=== PATIENT | female | born 1990 | race Caucasian/White ===

== ENCOUNTER 2023-05-14 10:12 | Outpatient (OUT) | payer BC, SELFPAY ==
[2023-05-14 10:40] LABS: Basophils Absolute Auto 0.1 10^3/uL (0.0-0.1); Basophils Percent Auto 0.6 % (0.2-2.0); Eosinophils Absolute Auto 0.4 10^3/uL (0.0-0.7); Eosinophils Percent Auto 4.3 % (0.9-7.0); Hematocrit 42.9 % (36.0-48.0); Hemoglobin 13.6 g/dL (12.0-16.0); Immature Granulocytes Abs Auto 0.02 10^3/uL (0.00-0.03); Immature Granulocytes Pct Auto 0.2 % (0.0-0.5); Lymphocytes Absolute Auto 3.9 10^3/uL (1.2-3.8); Lymphocytes Percent Auto 41.1 % (20.5-60.0); Mean Corpuscular HGB Conc 31.7 g/dL (29.9-35.2); Mean Corpuscular Hemoglobin 29.1 pg (26.7-34.0); Mean Corpuscular Volume 91.9 fL (81.0-99.0); Mean Platelet Volume 8.8 fL (9.5-13.5); Monocytes Absolute Auto 0.5 10^3/uL (0.3-0.8); Monocytes Percent Auto 4.8 % (1.7-12.0); Neutrophils Absolute Auto 4.6 10^3/uL (1.4-6.5); Platelet Count 237 10^3/uL (150-450); Red Blood Count 4.67 10^6/uL (4.20-5.40); White Blood Count 9.5 10^3/uL (4.0-11.0)
[2023-05-14 11:09] LABS: Estimated Average Glucose 88 mg/dL; Glycohemoglobin A1C 4.7 % (4.5-6.2)
[2023-05-14 11:10] LABS: Alanine Aminotransferase 34 U/L (14-59); Albumin Level 3.8 g/dL (3.4-5.0); Alkaline Phosphatase 40 U/L (46-116); Aspartate Amino Transferase 24 U/L (15-37); Bilirubin Total 0.5 mg/dL (0.2-1.0); Calcium 8.6 mg/dL (8.5-10.1); Carbon Dioxide 26.3 mmol/L (21.0-32.0); Chloride 104 mmol/L (98-107); Chol HDL Ratio 2.4; Cholesterol 213 mg/dL (<=200); Estimated GFR (African America >60 (>=60); Estimated GFR (Non-African Ame >60 (>=60); Globulin 3.8 g/dL; Glucose 86 mg/dL (74-106); HDL Cholesterol 87 mg/dL (40-60); Potassium 4.3 mmol/L (3.5-5.1); Sodium 139 mmol/L (136-145); TSH W/ REFLEX FT4 0.764 (0.358-3.740); Total Protein 7.6 g/dL (6.4-8.2); Triglycerides 142 mg/dL (<=150); VLDL CHOLESTEROL 28.4 mg/dL
[2023-05-15 06:08] LABS: HCV Ab Non Reactive (Non Reactive); HIV Ab/p24 Ag Screen Non Reactive (Non Reactive)
== END 2023-05-14 10:13 | disposition home or self-care (01) ==
LOC: LAB 10:18
PROVIDERS: PCP Nurse Practitioner Primary Care; Visit Provider Nurse Practitioner Primary Care
DX: Z00.00 Encounter for general adult medical examination without abnormal findings (principal); Z11.59 Encounter for screening for other viral diseases; Z11.4 Encounter for screening for human immunodeficiency virus [HIV]; Z13.6 Encounter for screening for cardiovascular disorders; Z13.29 Encounter for screening for other suspected endocrine disorder
CPT/HCPCS: 36415; 80053; 80061; 83036; 84443; 85025; 86803; 87389

== ENCOUNTER 2023-05-17 | Outpatient (REF) | payer BC, SELFPAY ==
--- OUTSIDE RECORDS SUMMARY | 2023-05-18 07:28 | XMS_ITS | CCD ---
Author Name Unknown Address [facility] [place] [address] Organization [facility] Care Team Providers Care [employer] Name Role Phone SWAPNIL CALIX Primary Care Unavailable DR LYNSEY DE LOS SANTOS Attending Unavailable FILIBERTO, DR MENON Consulting Unavailable DR LYNSEY DE LOS SANTOS Admitting Unavailable Problems Problem Classification Problem Date Documented Da te Episodic/Chronic Disorders of teeth and jaw (4 sources) Other specified disorders of teeth and supporting structures; Translations: [Periapical abscess without sinus] Onset: 09-28-2021 Episodic Other connective tissue disease (1 source) Other specified soft tissue disorders; Translations: [OTHER SPEC SOFT TISSUE DISORDERS] Onset: 09-29-2021 Episodic Substance-related disorders (1 source) Nicotine dependence, cigarettes, uncomplicated; Translations: [NICOTINE DEPEND CIGARETTES UNCOMP] Onset: 09-29-2021 Chronic Results Test Name Value Interpretation Reference Range Facil ity ED Note-Physicianon 11-18-19 ED Note-Physician Basic Information Time Seen: Evangelist Butcher PA-C 11/14/2019 18:21 Chief Complaint intermittent fevers since trip to [place] last 24 hours. denies nausea, vomiting, diarrhea History of Present Illness 29-year-old female presents to the emergency room for evaluation of the fever and cough. The patient states the fever started today and cough followed thereafter. She states that she is recently on vacation in [place]. She states she is on multiple people and now some of them are starting to get sick as well. She states that she has no shortness of breath but is a smoker. She states that she is concerned about the virus that is a current pandemic. Review of Systems All Organ systems are reviewed. Pertinent positive and negative findings as mentioned in the HPI Physical Exam Vitals & Measurements T: 37 ?C (Oral) HR: 82(Peripheral) RR: 16 BP: 129/84 SpO2: 99% Nurses note and vital signs reviewed and patient is not hypoxic. General: The patient appears well and in no apparent distress. Patient is resting comfortably on cart. Skin: Warm, dry, no pallor noted. There is no rash noted. Head: Normocephalic, atraumatic Eye: Normal conjunctiva Ears, Nose, Mouth, and Throat: oral mucosa is mildly dry. There is bilateral TM bulging without erythema. I notice clear fluid in both TMs. No perforation. Postnasal drip noted with mild pharyngeal erythema without exudate. Nasal congestion with purulent drainage. Handles secretions well. Uvula midline. Cardiovascular: Regular Rate and Rhythm Respiratory: Patient is in no distress, no accessory muscle use, lungs are clear to auscultation, no wheezing, rales or rhonchi Back: non-tender, no CVA tenderness bilaterally to percussion. GI: Normal bowel sounds, no tenderness to palpation, no masses appreciated. No rebound, guarding, or rigidity noted. Musculoskeletal: The patient has no evidence of calf tenderness, no pitting edema, symmetrical pulses noted bilaterally Neurological: A&O x4, normal speech Psychiatric: Cooperative Medical Decision Making The patient is tested and swabbed for COID-19 and the patient will be treated symptomatically and supportively. Tylenol for fever reducing and to increase fluids. Close follow-up with primary care advised. We will call her with results. Return regularly worsening symptoms including shortness of breath or fever that is not responding to Tylenol. She has no questions and is discharged home Assessment/Plan Fever (R50.9: Fever, unspecified) Viral URI (J06.9: Acute upper respiratory infection, unspecified) Orders: albuterol, 1 puff(s), Inhalation, q6hr for wheezing, 8.5 gram, Refill(s) 0, [facility], 160, cm, 01/02/19 21:22:00 EDT, Height/Length Measured, 95.3, kg, 01/02/19 21:22:00 EDT, Weight Measured brompheniramine/dextro methorphan/PSE, 5-10 mL, Oral, QID for cold symptoms, 180 mL, Refill(s) 0, [facility], 160, cm, 01/02/19 21:22:00 EDT, Height/Length Measured, 95.3, kg, 01/02/19 21:22:00 EDT, Weight Measured SARS-CoV-2, LENA Disposition Plan Patient Discharge Condition Stable Discharge Disposition Discharged home Discharge Prescription List Prescriptions Bromfed DM oral syrup, 5-10 mL, Oral, QID, PRN ProAir HFA 90 mcg/inh inhalation aerosol, 1 puff(s), Inhalation, q6hr, PRN Follow-up With When Contact Information Jerri Dumont In 3 days 11/17/[address] [place] [address]- Business (1) Additional Instructions: Patient Education Viral Infections Fever, Adult Attestation The patient's care was supervised by Dr. Luciano including history, physical, medical decision making, and disposition. Teaching-Supervisory Addendum-Brief I participated in the following activities of this patients care: the medical history. I personally performed: supervision of the patient's care, the medical history, the physical exam, the medical decision making. The case was discussed with: the physician educational program assistant, Evangelist Butcher PA-C. Procedures: I directly supervised the entire procedure. Evaluation and management service: I agree with the evaluation and management decisions made in this patient's care. Results interpretation: I agree with the study interpretation in this patient's care, I agree with the documentation of the study interpretation. Problem List/Past Medical History Ongoing Abdominal pain in [place]abies Smoker Historical none Procedure/Surgical History , none. 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 Activity level: Moderate physical work., 08/12/2013 Home/Environment Lives with Mother. Living situation: Home/Independent. Alcohol abuse in household: No. Substance abuse in household: No. Smoker in household: Yes. Injuries/Abuse/Neglect in household: No. Feels unsafe at home: No. Safe place to go: Yes. Agency(s)/Others notified: No. Family/Friends available for support: Yes. Concern for family members at home: No. Major illness in household: No. Financial concerns: No., 08/12/2013 Nutrition/Health Regular, 08/12/2013 Substance Abuse - Denies Substance Abuse, 08/12/2013 Current, 11/14/2019 IV drug use: No., 04/30/2018 Current, 04/06/2018 Tobacco - Denies Tobacco Use, 01/02/2019 4 or less cigarettes(less than 1/4 pack)/day in last 30 days Tobacco Use:. Cigarettes, 11/14/2019 10 or more cigarettes (1/2 pack or more)/day in last 30 days Tobacco Use:. Cigarettes, 04/30/2018 Cigarettes, 04/06/2018 Current Every Day Smoker, 08/12/2013 Current, Cigarettes, 20 per day. Ready to change: No. Household tobacco concerns: No., 09/30/2010 Family History COPD: Father. Eczema: Sister. Heart murmur: Sister. Lab Results No qualifying data available. Diagnostic Results No qualifying data available. Normal [facility] Comment on above: Result Comment: Elec tronically Signed By: Evangelist Butcher PA-C\.br\Date and Time Signed: 11/14/19 19:19 EDT\.br\Electronically Co-Signed By: Cb Luciano M.D.\.br\Date and Time Co-Signed: 11/18/19 09:27 EDT Coding Summary.on 11-16-2019 Coding Summary. CODING DATE: 11/16/2019 FINAL [facility] STATUS: Home (Routine DC) PAYOR: Hood ADMIT DX: REASON FOR VISIT DX: R50.9 Fever, unspecified R05 Cough FINAL DX: PRINCIPAL: J06.9 Acute upper respiratory infection, unspecified SECONDARY: B97.89 Other viral agents as the cause of diseases classified elsewhere Z20.828 Contact with and (suspected) exposure to other viral communicable diseases F17.210 Nicotine dependence, cigarettes, uncomplicated PYMT PROC APC STAT DESCRIPTION DOCTOR NAME DATE NOTE: The code number assigned matches the documented diagnosis and / or procedure in the patient's chart. However, the narrative phrase printed from the coding software may appear abbreviated, or result in slightly different terminology. Coded By: Arlene Sanchez Date Saved: 11/16/2019 08:31 am Normal [facility] Consent for Treatmenton 10-26 Consent for Treatment [id number] 0CD:127 Normal [facility] Discharge Instructionson Discharge Instructions [id number] 0CD:127 Normal [facility] ED Clinical Summaryon 2019 ED Clinical Summary [address] [address] ED Clinical Summary Person Information Name: MARTINA MELENDEZ [facility] Age: 29 Years : 1990 Sex: Female Language: Greek PCP: Tim HARMAN, Jerri Amaya Marital Status: Single Phone: [phone] Visit Id: Visit Reason: Cough; Fever; FEVER, JUST RETURNED FROM [place] Speciality: Acuity: 3 Enc Type: Emergency Med Service: Emergency Arrival: 11/14/2019 18:13:56 Discharge: 11/14/2019 19:34:45 LOS: 000 01:21 Checkin: 11/14/2019 18:13:56 Checkout: 11/14/2019 19:34:45 Dispo Type: Home (Routine DC) EVENTS: Event Name Event Status Request Date/Time Start Date/Time Complete Date/Time Arrive Complete 11/14/2019 18:13:56 11/14/2019 18:13:56 11/14/2019 18:13:56 Document Home Meds Request 11/14/2019 18:13:56 Triage Complete 11/14/2019 18:13:56 11/14/2019 18:29:14 11/14/2019 18:29:14 Dr Exam Complete 11/14/2019 18:21:41 11/14/2019 18:21:41 11/14/2019 18:21:41 Registration Complete 11/14/2019 18:21:41 11/14/2019 18:23:44 11/14/2019 18:27:36 Bed Assign Complete 11/14/2019 18:23:44 11/14/2019 18:23:44 11/14/2019 18:23:44 RN Exam Complete 11/14/2019 18:23:44 11/14/2019 18:33:06 11/14/2019 18:33:06 Reg Complete Request 11/14/2019 18:27:36 Reg Bed Request Complete 11/14/2019 18:27:37 11/14/2019 18:27:37 11/14/2019 18:27:37 Patient Care Request 11/14/2019 18:29:15 Patient Isolation Request 11/14/2019 18:29:15 Dr Exam Complete 11/14/2019 18:41:38 11/14/2019 18:41:38 11/14/2019 18:41:38 Registration Complete 11/14/2019 18:41:38 11/14/2019 18:46:09 11/14/2019 18:46:09 Pending Labs Request 11/14/2019 19:13:02 Discharge Complete 11/14/2019 19:17:09 11/14/2019 19:34:51 11/14/2019 19:34:51 Transfer Complete 11/14/2019 19:34:51 11/14/2019 19:34:51 11/14/2019 19:34:51 ADDRESS: [address] [place] [id number] PHYS DOC NOTES: MEDICAL INFORMATION: Prescriptions Given: New Medications [facility] [place] [id number], [phone] albuterol (ProAir HFA 90 mcg/inh inhalation aerosol) 1 Puffs Inhalation every 6 hours as needed for wheezing. Refills: 0. brompheniramine/dextro methorphan/PSE (Bromfed DM oral syrup) 5-10 mL By Mouth 4 times a day as needed for cold symptoms. Refills: 0. PATIENT EDUCATION INFORMATION: Instructions: Viral Infections; Fever, Adult Follow up: With: Address: When: Jerri Dumont [address] [place] [address] Business (1) In 3 days 11/17/2019 DIAGNOSIS: Fever; Viral URI Normal [facility] ED Patient Education Noteon 11-14-2019 ED Patient Education Note Family Medicine Viral Infections A viral infection can be caused by different types of viruses.?Most viral infections are not serious and resolve on their own. However, some infections may cause severe symptoms and may lead to further complications. SYMPTOMS Viruses can frequently cause: ? Minor sore throat. ? Aches and pains. ? Headaches. ? Runny nose. ? Different types of rashes. ? Watery eyes. ? Tiredness. ? Cough. ? Loss of appetite. ? Gastrointestinal infections, resulting in nausea, vomiting, and diarrhea. These symptoms do not respond to antibiotics because the infection is not caused by bacteria. However, you might catch a bacterial infection following the viral infection. This is sometimes called a superinfection. Symptoms of such a bacterial infection may include: ? Worsening sore throat with pus and difficulty swallowing. ? Swollen neck glands. ? Chills and a high or persistent fever. ? Severe headache. ? Tenderness over the sinuses. ? Persistent overall ill feeling (malaise), muscle aches, and tiredness (fatigue). ? Persistent cough. ? Yellow, green, or brown mucus production with coughing. HOME CARE INSTRUCTIONS ? Only take omsi-srm-dwivtwy or prescription medicines for pain, discomfort, diarrhea, or fever as directed by your caregiver. ? Drink enough water and fluids to keep your urine clear or pale yellow. Sports drinks can provide valuable electrolytes, sugars, and hydration. ? Get plenty of rest and maintain proper nutrition. Soups and broths with crackers or rice are fine. SEEK IMMEDIATE MEDICAL CARE IF: ? You have severe headaches, shortness of breath, chest pain, neck pain, or an unusual rash. ? You have uncontrolled vomiting, diarrhea, or you are unable to keep down fluids. ? You or your child has an oral temperature above 102? F (38.9? C), not controlled by medicine. ? Your baby is older than 3 months with a rectal temperature of 102? F (38.9? C) or higher. ? Your baby is 3 months old or younger with a rectal temperature of 100.4? F (38? C) or higher. MAKE SURE YOU: ? Understand these instructions. ? Will watch your condition. ? Will get help right away if you are not doing well or get worse. Document Released: 02/20/2006 Document Revised: 08/04/2012 Document Reviewed: 09/17/2011 ExitCare? Patient Information ?2014 Gtxh. This information is not intended to replace advice given to you by your health care provider. Make sure you discuss any questions you have with your health care provider. Infectious Disease Fever, Adult A fever is a higher than normal body temperature. In an adult, an oral temperature around 98.6? F (37? C) is considered normal. A temperature of 100.4? F (38? C) or higher is generally considered a fever. Mild or moderate fevers generally have no long-term effects and often do not require treatment. Extreme fever (greater than or equal to 106? F or 41.1? C) can cause seizures. The sweating that may occur with repeated or prolonged fever may cause dehydration. Elderly people can develop confusion during a fever. A measured temperature can vary with: ? Age. ? Time of day. ? Method of measurement (mouth, underarm, rectal, or ear). The fever is confirmed by taking a temperature with a thermometer. Temperatures can be taken different ways. Some methods are accurate and some are not. ? An oral temperature is used most commonly. Electronic thermometers are fast and accurate. ? An ear temperature will only be accurate if the thermometer is positioned as recommended by the appeals referee. ? A rectal temperature is accurate and done for those adults who have a condition where an oral temperature cannot be taken. ? An underarm (axillary) temperature is not accurate and not recommended. Fever is a symptom, not a disease. CAUSES ? Infections commonly cause fever. ? Some noninfectious causes for fever include: ? Some arthritis conditions. ? Some thyroid or adrenal gland conditions. ? Some immune system conditions. ? Some types of cancer. ? A medicine reaction. ? High doses of certain street drugs such as methamphetamine. ? Dehydration. ? Exposure to high outside or room temperatures. ? Occasionally, the source of a fever cannot be determined. This is sometimes called a fever of unknown origin (FUO). ? Some situations may lead to a temporary rise in body temperature that may go away on its own. Examples are: ? Childbirth. ? Surgery. ? Intense exercise. HOME CARE INSTRUCTIONS ? Take appropriate medicines for fever. Follow dosing instructions carefully. If you use acetaminophen to reduce the fever, be careful to avoid taking other medicines that also contain acetaminophen. Do not take aspirin for a fever if you are younger than age 19. There is an association with Nadeem's syndrome. Nadeem's syndrome is a rare but potentially deadly disease. ? If an infection is present and antibiotics have been prescribed, take them as directed. Finish them even if you start to feel better. ? Rest as needed. ? Maintain an adequate fluid intake. To prevent dehydration during an illness with prolonged or recurrent fever, you may need to drink extra fluid.?Drink enough fluids to keep your urine clear or pale yellow. ? Sponging or bathing with room temperature water may help reduce body temperature. Do not use ice water or alcohol sponge baths. ? Dress comfortably, but do not over-bundle. SEEK MEDICAL CARE IF: ? You are unable to keep fluids down. ? You develop vomiting or diarrhea. ? You are not feeling at least partly better after 3 days. ? You develop new symptoms or problems. SEEK IMMEDIATE MEDICAL CARE IF: ? You have shortness of breath or trouble breathing. ? You develop excessive weakness. ? You are dizzy or you faint. ? You are extremely thirsty or you are making little or no urine. ? You develop new pain that was not there before (such as in the head, neck, chest, back, or abdomen). ? You have persistent vomiting and diarrhea for more than 1 to 2 days. ? You develop a stiff neck or your eyes become sensitive to light. ? You develop a skin rash. ? You have a fever or persistent symptoms for more than 2 to 3 days. ? You have a fever and your symptoms suddenly get worse. MAKE SURE YOU: ? Understand these instructions. ? Will watch your condition. ? Will get help right away if you are not doing well or get worse. Document Released: 11/06/2001 Document Revised: 09/27/2014 Document Reviewed: 03/13/2012 ExitCare? Patient Information ?2015 Gtxh. This information is not intended to replace advice given to you by your health care provider. Make sure you discuss any questions you have with your health care provider. Normal [facility] ED Patient Summaryon 020 ED Patient Summary [place] [id number] Patient Discharge Instructions Person Information Name: MARTINA MELENDEZ Age: 29 Years Arrival Date: 11/14/2019 18:13:56 Discharge Diagnosis: Fever; Viral URI Primary Care Physician: Jerri Dumont MD Provider Information Primary Provider: Cb Luciano M.D. [facility] Office Manager:Evangelist Butcher PA-C The exam and treatment you received in the Emergency Department were for an urgent problem and are not intended as complete care. It is important that you follow up with a doctor, nurse practitioner, or physician?s educational program assistant for ongoing care. If your symptoms become worse or you do not improve as expected and you are unable to reach your usual health care provider, you should return to the Emergency Department. We are available 24 hours a day. MARTINA MELENDEZ has been given the following list of patient education materials, prescriptions and follow-up instructions: Follow-up Instructions: With: Address: When: [place] [address] [place] [address] Business (1) In 3 days 11/17/2019 In the event that this physician does not participate in your insurance network, please consult with your insurance company to find a nearby participating provider. Patient Education Materials: Viral Infections; Fever, Adult A MESSAGE TO ALL PATIENTS REGARDING OPIOIDS PRESCRIPTION OPIOIDS: WHAT YOU NEED TO KNOW Prescription opioids can be used to help relieve yfavkdgl-ae-ekgwop pain and are often prescribed following a surgery or injury, or for certain health conditions. These medications can be an important part of the treatment but also come with serious risks. It is important to work with your healthcare provider to make sure you are getting the safest, most effective care. WHAT ARE THE RISKS AND SIDE EFFECTS OF OPIOID USE? Prescription opioids carry serious risks of addiction and overdose, especially with prolonged use. An opioid overdose, often marked by slowed breathing, can cause sudden . The use of prescription opioids can have a number of side effects as well, even when taken as directed: ? Tolerance?meaning you might need to take more of the medication for the same pain relief ? Physical dependence?meaning you have symptoms of withdrawal when a medication is stopped ? Increased sensitivity to pain ? Constipation ? Nausea, vomiting, and dry mouth ? Sleepiness and dizziness ? Confusion ? Depression ? Low levels of testosterone that can result in lower sex drive, energy, and strength ? Itching and sweating RISKS ARE GREATER WITH: ? History of drug misuse, substance use disorder, or overdose ? Mental health conditions (such as depression or anxiety) ? Sleep apnea ? Older age (65 years and older) ? Avoid alcohol while taking prescription opioids. Also, unless specifically advised by your health care provider, medications to avoid include: ? Benzodiazepines (such as Xanax or Valium) ? Muscle relaxants (such as Soma or Flexeril) ? Hypnotics (such as Ambien or Lunesta) ? Other prescription opioids KNOW YOUR OPTIONS Talk to your health care provider about ways to manage your pain that don?t involve prescription opioids. Some of these options may actually work better and have fewer risks and side effects. Options may include: ? Pain relievers such as acetaminophen, ibuprofen, and naproxen ? Some medication that are also used for depression or seizures ? Physical therapy and exercise ? Cognitive behavioral therapy, a psychological, goal-directed approach, in which patients learn how to modify physical, behavioral, and emotional triggers of pain and stress. IF YOU ARE PRESCRIBED OPIOIDS FOR PAIN: ? Never take opioids in greater amounts or more often than prescribed. ? Follow up with your primary health care provider. o Work together to create a plan on how to manage your pain. o Talk about ways to help manage your pain that don?t involve prescription opioids. o Talk about any and all concerns and side effects. ? Help prevent misuse and abuse o Never sell or share prescription opioids. o Never use another person?s prescription opioids. ? Store prescription opioids in a secure place and out of reach of others (this may include visitors, children, friends, and family). ? Safely dispose of unused prescription opioids: Find your community drug take-back program or your pharmacy mail-back program, or flush them down the toilet, following guidance from the Food and Drug Administration (www.fda.gov/Drugs/Res ourcesForYou). ? Visit www.cdc.gov/drugoverdo se to learn about the risks of opioids abuse and overdose. ? If you believe you may be struggling with addiction, tell your health director of medicare and ask for guidance or call SAMHSA?S National Helpline at 5-121-606-ICIJ. v Source: US Department of Health and Human Services/Center for Disease Control & Prevention [facility] Medications Given: Medication Dose Route No medications found. Medication Information: New Medications [facility] [place], [place] [id number], [phone] albuterol (ProAir HFA 90 mcg/inh inhalation aerosol) 1 Puffs Inhalation every 6 hours as needed for wheezing. Refills: 0. brompheniramine/dextro methorphan/PSE (Bromfed DM oral syrup) 5-10 mL By Mouth 4 times a day as needed for cold symptoms. Refills: 0. Comment: Pharmacy Information: [facility] [place] [facility] Thank you for choosing [facility] Patient Education Materials: Viral Infections A viral infection can be caused by different types of viruses.?Most viral infections are not serious and resolve on their own. However, some infections may cause severe symptoms and may lead to further complications. SYMPTOMS Viruses can frequently cause: ? Minor sore throat. ? Aches and pains. ? Headaches. ? Runny nose. ? Different types of rashes. ? Watery eyes. ? Tiredness. ? Cough. ? Loss of appetite. ? Gastrointestinal infections, resulting in nausea, vomiting, and diarrhea. These symptoms do not respond to antibiotics because the infection is not caused by bacteria. However, you might catch a bacterial infection following the viral infection. This is sometimes called a superinfection. Symptoms of such a bacterial infection may include: ? Worsening sore throat with pus and difficulty swallowing. ? Swollen neck glands. ? Chills and a high or persistent fever. ? Severe headache. ? Tenderness over the sinuses. ? Persistent overall ill feeling (malaise), muscle aches, and tiredness (fatigue). ? Persistent cough. ? Yellow, green, or brown mucus production with coughing. HOME CARE INSTRUCTIONS ? Only take hxxp-yuj-wwhjvvt or prescription medicines for pain, discomfort, diarrhea, or fever as directed by your caregiver. ? Drink enough water and fluids to keep your urine clear or pale yellow. Sports drinks can provide valuable electrolytes, sugars, and hydration. ? Get plenty of rest and maintain proper nutrition. Soups and broths with crackers or rice are fine. SEEK IMMEDIATE MEDICAL CARE IF: ? You have severe headaches, shortness of breath, chest pain, neck pain, or an unusual rash. ? You have uncontrolled vomiting, diarrhea, or you are unable to keep down fluids. ? You or your child has an oral temperature above 102? F (38.9? C), not controlled by medicine. ? Your baby is older than 3 months with a rectal temperature of 102? F (38.9? C) or higher. ? Your baby is 3 months old or younger with a rectal temperature of 100.4? F (38? C) or higher. MAKE SURE YOU: ? Understand these instructions. ? Will watch your condition. ? Will get help right away if you are not doing well or get worse. Document Released: 02/20/2006 Document Revised: 08/04/2012 Document Reviewed: 09/17/2011 ExitCare? Patient Information ?2015 Gtxh. This information is not intended to replace advice given to you by your health care provider. Make sure you discuss any questions you have with your health care provider. Fever, Adult A fever is a higher than normal body temperature. In an adult, an oral temperature around 98.6? F (37? C) is considered normal. A temperature of 100.4? F (38? C) or higher is generally considered a fever. Mild or moderate fevers generally have no long-term effects and often do not require treatment. Extreme fever (greater than or equal to 106? F or 41.1? C) can cause seizures. The sweating that may occur with repeated or prolonged fever may cause dehydration. Elderly people can develop confusion during a fever. A measured temperature can vary with: ? Age. ? Time of day. ? Method of measurement (mouth, underarm, rectal, or ear). The fever is confirmed by taking a temperature with a thermometer. Temperatures can be taken different ways. Some methods are accurate and some are not. ? An oral temperature is used most commonly. Electronic thermometers are fast and accurate. ? An ear temperature will only be accurate if the thermometer is positioned as recommended by the appeals referee. ? A rectal temperature is accurate and done for those adults who have a condition where an oral temperature cannot be taken. ? An underarm (axillary) temperature is not accurate and not recommended. Fever is a symptom, not a disease. CAUSES ? Infections commonly cause fever. ? Some noninfectious causes for fever include: ? Some arthritis conditions. ? Some thyroid or adrenal gland conditions. ? Some immune system conditions. ? Some types of cancer. ? A medicine reaction. ? High doses of certain street drugs such as methamphetamine. ? Dehydration. ? Exposure to high outside or room temperatures. ? Occasionally, the source of a fever cannot be determined. This is sometimes called a fever of unknown origin (FUO). ? Some situations may lead to a temporary rise in body temperature that may go away on its own. Examples are: ? Childbirth. ? Surgery. ? Intense exercise. HOME CARE INSTRUCTIONS ? Take appropriate medicines for fever. Follow dosing instructions carefully. If you use acetaminophen to reduce the fever, be careful to avoid taking other medicines that also contain acetaminophen. Do not take aspirin for a fever if you are younger than age 19. There is an association with Nadeem's syndrome. Nadeem's syndrome is a rare but potentially deadly disease. ? If an infection is present and antibiotics have been prescribed, take them as directed. Finish them even if you start to feel better. ? Rest as needed. ? Maintain an adequate fluid intake. To prevent dehydration during an illness with prolonged or recurrent fever, you may need to drink extra fluid.?Drink enough fluids to keep your urine clear or pale yellow. ? Sponging or bathing with room temperature water may help reduce body temperature. Do not use ice water or alcohol sponge baths. ? Dress comfortably, but do not over-bundle. SEEK MEDICAL CARE IF: ? You are unable to keep fluids down. ? You develop vomiting or diarrhea. ? You are not feeling at least partly better after 3 days. ? You develop new symptoms or problems. SEEK IMMEDIATE MEDICAL CARE IF: ? You have shortness of breath or trouble breathing. ? You develop excessive weakness. ? You are dizzy or you faint. ? You are extremely thirsty or you are making little or no urine. ? You develop new pain that was not there before (such as in the head, neck, chest, back, or abdomen). ? You have persistent vomiting and diarrhea for more than 1 to 2 days. ? You develop a stiff neck or your eyes become sensitive to light. ? You develop a skin rash. ? You have a fever or persistent symptoms for more than 2 to 3 days. ? You have a fever and your symptoms suddenly get worse. MAKE SURE YOU: ? Understand these instructions. ? Will watch your condition. ? Will get help right away if you are not doing well or get worse. Document Released: 11/06/2001 Document Revised: 09/27/2014 Document Reviewed: 03/13/2012 ExitCare? Patient Information ?2014 Gtxh. This information is not intended to replace advice given to you by your health care provider. Make sure you discuss any questions you have with your health care provider. IAL KRISTI L , have received the following patient education materials/instructions and have verbalized understanding: Patient Education Materials: Viral Infections; Fever, Adult Follow-up Instructions: With: Address: When: Jerri Dumont [place] [address] Business (1) In 3 days 11/17/2019 Patient Signature Date Clinician/Nurse Signature ___ Date 11/14/2019 19:34:53 Normal [facility] Progress Note-Nurseon 2019 Progress Note-Nurse COVID swab completed and sent to lab [facility] Progress Note-Nurse Patient came into [facility] ER due to intermittent fevers and cough. patient denies nausea, vomiting, or diarrhea. Patient stated family just returned from [place] vacationing. Family in [place] are currently at the hospital due to covid symptoms. Length of stay was a week. returned yesterday. Normal [facility] Coding Summary.on 01-05-2019 Coding Summary. CODING DATE: 01/05/2019 FINAL [facility] STATUS: Home (Routine DC) PAYOR: Hood ADMIT DX: REASON FOR VISIT DX: R21 Rash and other nonspecific skin eruption FINAL DX: PRINCIPAL: B86 Scabies SECONDARY: F17.210 Nicotine dependence, cigarettes, uncomplicated PROCEDURES DOCTOR NAME DATE NOTE: The code number assigned matches the documented diagnosis and / or procedure in the patient's chart. However, the narrative phrase printed from the coding software may appear abbreviated, or result in slightly different terminology. Coded By: Arlene Sanchez Date Saved: 01/05/2019 07:23 am Normal [facility] ED Clinical Summaryon 2018 ED Clinical Summary [place] [id number] ED Clinical Summary Person Information Name: MARTINA MELENDEZ [facility] Age: 28 Years : 1990 12:00 AM Sex: Female Language: Greek PCP: Jerri Dumont MD Marital Status: Single Phone: [phone] Visit Id: Visit Reason: Rash; SCABIES Speciality: Acuity: 4 Enc Type: Emergency Med Service: Emergency Arrival: 01/02/2019 9:05 PM Discharge: 01/02/2019 9:56 PM LOS: 000 00:51 Checkin: 01/02/2019 9:05 PM Checkout: 01/02/2019 9:56 PM Dispo Type: Home (Routine DC) EVENTS: Event Name Event Status Request Date/Time Start Date/Time Complete Date/Time Arrive Complete 01/02/2019 9:05 PM 01/02/2019 9:05 PM 01/02/2019 9:05 PM Document Home Meds Request 01/02/2019 9:05 PM Triage Complete 01/02/2019 9:05 PM 01/02/2019 9:26 PM 01/02/2019 9:26 PM Registration Complete 01/02/2019 9:12 PM 01/02/2019 9:12 PM 01/02/2019 9:12 PM Reg Complete Request 01/02/2019 9:12 PM Reg Bed Request Complete 01/02/2019 9:12 PM 01/02/2019 9:12 PM 01/02/2019 9:12 PM Bed Assign Complete 01/02/2019 9:13 PM 01/02/2019 9:13 PM 01/02/2019 9:[address] Exam Complete 01/02/2019 9:13 PM 01/02/2019 9:25 PM 01/02/2019 9:25 PM RN Exam Complete 01/02/2019 9:13 PM 01/02/2019 10:00 PM 01/02/2019 10:00 PM Registration Request 01/02/2019 9:25 PM Discharge Complete 01/02/2019 9:40 PM 01/02/2019 10:02 PM 01/02/2019 10:02 PM Transfer Complete 01/02/2019 10:02 PM 01/02/2019 10:02 PM 01/02/2019 10:02 PM ADDRESS: [address] [place] [phone] PHYS DOC NOTES: MEDICAL INFORMATION: Prescriptions Given: PATIENT EDUCATION INFORMATION: Instructions: Scabies Follow up: With: Address: When: [place] [address] [place] [address] Business (1) In 3 days DIAGNOSIS: 1:Scabies Normal [facility] ED Note-Physicianon 01-04-20 ED Note-Physician Basic Information Time Seen: Ankita Galarza, Cb Wang 01/02/2019 21:25 Chief Complaint pt. states she thinks her and dtr. got scabies from staying in a hotel while on vacation. rash to b/l arms. History of Present Illness The patient is a 28-year-old female who presented to the emergency with skin rash on her forearms. The patient states that she thinks she has scabies because she's had that in the past. The patient states that the rash has been for past 7 days. She states rash is itchy. She denies any fever or chills. The patient denies any other associated symptoms. Review of Systems Additional ROS info: Except as noted in the above Review of Systems and in the History of Present Illness all other systems have been reviewed and are negative or noncontributory. Physical Exam Vitals & Measurements T: 36.8 ?C (Oral) HR: 77(Peripheral) RR: 16 BP: 113/70 SpO2: 96% HT: 160 cm WT: 95.3 kg BMI: 37.23 General: alert, no acute distress Skin: warm, dry, there is a skin rash on both forearms, small burrows in pairs consistent with scabies Head: no trauma, normocephalic Neck: Trachea midline Eye: normal conjunctiva, sclera clear Cardiovascular: regular rate and rhythm Respiratory: Lungs CTA, respirations non labored, breath sounds equal Extremities: no deformity, no trauma Neurological: Alert and oriented, speech normal, no focal neuro deficits Psychiatric: cooperative, affect appropriate for age Medical Decision Making The patient presented with rash which appears to be like scabies. Will discharge patient home with permethrin 5%. Assessment/Plan 1. Scabies (B86: Scabies) Orders: permethrin topical, 1 mariaelena, Topical, Once, 60 gram, Refill(s) 0, [facility] Disposition Plan Patient Discharge Condition Stable Discharge Disposition Discharged home Discharge Prescription List Prescriptions No active prescription medications Follow-up With When Contact Information Jerri Dumont In [address] [place] [address]- Business (1) Additional Instructions: Patient Education Scabies Problem List/Past Medical History Ongoing Abdominal pain in Smoker Historical none Procedure/Surgical History , none. 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 Activity level: Moderate physical work., 08/12/2013 Home/Environment Lives with Mother. Living situation: Home/Independent. Alcohol abuse in household: No. Substance abuse in household: No. Smoker in household: Yes. Injuries/Abuse/Neglect in household: No. Feels unsafe at home: No. Safe place to go: Yes. Agency(s)/Others notified: No. Family/Friends available for support: Yes. Concern for family members at home: No. Major illness in household: No. Financial concerns: No., 08/12/2013 Nutrition/Health Regular, 08/12/2013 Substance Abuse - Denies Substance Abuse, 08/12/2013 IV drug use: No., 04/30/2018 Current, 04/06/2018 Tobacco 10 or more cigarettes (1/2 pack or more)/day in last 30 days Tobacco Use:. Cigarettes, 04/30/2018 Cigarettes, 04/06/2018 Current Every Day Smoker, 08/12/2013 Current, Cigarettes, 20 per day. Ready to change: No. Household tobacco concerns: No., 09/30/2010 Family History COPD: Father. Eczema: Sister. Heart murmur: Sister. Lab Results No qualifying data available. Diagnostic Results No qualifying data available. Normal [facility] Comment on above: Result Comment: Elec tronically Signed By: Cb Luciano M.D..ronald\Date and Time Signed: 01/03/19 01:05 EDT ED Patient Education Noteon 01-03-2019 ED Patient Education Note Family Medicine Scabies Scabies are small bugs (mites) that john under the skin and cause red bumps and severe itching. These bugs can only be seen with a microscope. Scabies are highly contagious. They can spread easily from person to person by direct contact. They are also spread through sharing clothing or linens that have the scabies mites living in them. It is not unusual for an entire family to become infected through shared towels, clothing, or bedding. HOME CARE INSTRUCTIONS ? Your caregiver may prescribe a cream or lotion to kill the mites. If cream is prescribed, massage the cream into the entire body from the neck to the bottom of both feet. Also massage the cream into the scalp and face if your child is less than 1 year old. Avoid the eyes and mouth. Do not wash your hands after application. ? Leave the cream on for 8 to 12 hours. Your child should bathe or shower after the 8 to 12 hour application period. Sometimes it is helpful to apply the cream to your child right before bedtime. ? One treatment is usually effective and will eliminate approximately 95% of infestations. For severe cases, your caregiver may decide to repeat the treatment in 1 week. Everyone in your household should be treated with one application of the cream. ? New rashes or burrows should not appear within 24 to 48 hours after successful treatment. However, the itching and rash may last for 2 to 4 weeks after successful treatment. Your caregiver may prescribe a medicine to help with the itching or to help the rash go away more quickly. ? Scabies can live on clothing or linens for up to 3 days. All of your child's recently used clothing, towels, stuffed toys, and bed linens should be washed in hot water and then dried in a dryer for at least 20 minutes on high heat. Items that cannot be washed should be enclosed in a plastic bag for at least 3 days. ? To help relieve itching, bathe your child in a cool bath or apply cool washcloths to the affected areas. ? Your child may return to school after treatment with the prescribed cream. SEEK MEDICAL CARE IF: ? The itching persists longer than 4 weeks after treatment. ? The rash spreads or becomes infected. Signs of infection include red blisters or yellow-zepeda crust. Document Released: 05/13/2006 Document Revised: 08/04/2012 Document Reviewed: 09/21/2009 ExitCare? Patient Information ?2014 Gtxh. This information is not intended to replace advice given to you by your health care provider. Make sure you discuss any questions you have with your health care provider. Normal [facility] ED Patient Summaryon 019 ED Patient Summary [address] [address] Patient Discharge Instructions Person Information Name: MARTINA MELENDEZ Age: 28 Years Arrival Date: 01/02/2019 9:05 PM Discharge Diagnosis: 1:Scabies Primary Care Physician: Jerri Dumont MD Provider Information Primary Provider: Cb Luciano M.D. [facility] Office Manager:None The exam and treatment you received in the Emergency Department were for an urgent problem and are not intended as complete care. It is important that you follow up with a doctor, nurse practitioner, or physician?s educational program assistant for ongoing care. If your symptoms become worse or you do not improve as expected and you are unable to reach your usual health care provider, you should return to the Emergency Department. We are available 24 hours a day. MARTINA MELENDEZ has been given the following list of patient education materials, prescriptions and follow-up instructions: Follow-up Instructions: With: Address: When: Jerri Dumont [place] [address] Business (1) In 3 days In the event that this physician does not participate in your insurance network, please consult with your insurance company to find a nearby participating provider. Patient Education Materials: Scabies A MESSAGE TO ALL PATIENTS REGARDING OPIOIDS PRESCRIPTION OPIOIDS: WHAT YOU NEED TO KNOW Prescription opioids can be used to help relieve rhgnbact-az-eevxbm pain and are often prescribed following a surgery or injury, or for certain health conditions. These medications can be an important part of the treatment but also come with serious risks. It is important to work with your healthcare provider to make sure you are getting the safest, most effective care. WHAT ARE THE RISKS AND SIDE EFFECTS OF OPIOID USE? Prescription opioids carry serious risks of addiction and overdose, especially with prolonged use. An opioid overdose, often marked by slowed breathing, can cause sudden . The use of prescription opioids can have a number of side effects as well, even when taken as directed: ? Tolerance?meaning you might need to take more of the medication for the same pain relief ? Physical dependence?meaning you have symptoms of withdrawal when a medication is stopped ? Increased sensitivity to pain ? Constipation ? Nausea, vomiting, and dry mouth ? Sleepiness and dizziness ? Confusion ? Depression ? Low levels of testosterone that can result in lower sex drive, energy, and strength ? Itching and sweating RISKS ARE GREATER WITH: ? History of drug misuse, substance use disorder, or overdose ? Mental health conditions (such as depression or anxiety) ? Sleep apnea ? Older age (65 years and older) ? Avoid alcohol while taking prescription opioids. Also, unless specifically advised by your health care provider, medications to avoid include: ? Benzodiazepines (such as Xanax or Valium) ? Muscle relaxants (such as Soma or Flexeril) ? Hypnotics (such as Ambien or Lunesta) ? Other prescription opioids KNOW YOUR OPTIONS Talk to your health care provider about ways to manage your pain that don?t involve prescription opioids. Some of these options may actually work better and have fewer risks and side effects. Options may include: ? Pain relievers such as acetaminophen, ibuprofen, and naproxen ? Some medication that are also used for depression or seizures ? Physical therapy and exercise ? Cognitive behavioral therapy, a psychological, goal-directed approach, in which patients learn how to modify physical, behavioral, and emotional triggers of pain and stress. IF YOU ARE PRESCRIBED OPIOIDS FOR PAIN: ? Never take opioids in greater amounts or more often than prescribed. ? Follow up with your primary health care provider. o Work together to create a plan on how to manage your pain. o Talk about ways to help manage your pain that don?t involve prescription opioids. o Talk about any and all concerns and side effects. ? Help prevent misuse and abuse o Never sell or share prescription opioids. o Never use another person?s prescription opioids. ? Store prescription opioids in a secure place and out of reach of others (this may include visitors, children, friends, and family). ? Safely dispose of unused prescription opioids: Find your community drug take-back program or your pharmacy mail-back program, or flush them down the toilet, following guidance from the Food and Drug Administration (www.fda.gov/Drugs/Res ourcesForYou). ? Visit www.cdc.gov/drugoverdo se to learn about the risks of opioids abuse and overdose. ? If you believe you may be struggling with addiction, tell your health director of medicare and ask for guidance or call [facility]?S National Helpline at 9-545-614-TZMS. i Source: US Department of Health and Human Services/Center for Disease Control & Prevention [facility] Medications Given: Medication Dose Route No medications found. Medication Information: Comment: Pharmacy Information: Thank you for choosing [facility] Patient Education Materials: Scabies Scabies are small bugs (mites) that john under the skin and cause red bumps and severe itching. These bugs can only be seen with a microscope. Scabies are highly contagious. They can spread easily from person to person by direct contact. They are also spread through sharing clothing or linens that have the scabies mites living in them. It is not unusual for an entire family to become infected through shared towels, clothing, or bedding. HOME CARE INSTRUCTIONS ? Your caregiver may prescribe a cream or lotion to kill the mites. If cream is prescribed, massage the cream into the entire body from the neck to the bottom of both feet. Also massage the cream into the scalp and face if your child is less than 1 year old. Avoid the eyes and mouth. Do not wash your hands after application. ? Leave the cream on for 8 to 12 hours. Your child should bathe or shower after the 8 to 12 hour application period. Sometimes it is helpful to apply the cream to your child right before bedtime. ? One treatment is usually effective and will eliminate approximately 95% of infestations. For severe cases, your caregiver may decide to repeat the treatment in 1 week. Everyone in your household should be treated with one application of the cream. ? New rashes or burrows should not appear within 24 to 48 hours after successful treatment. However, the itching and rash may last for 2 to 4 weeks after successful treatment. Your caregiver may prescribe a medicine to help with the itching or to help the rash go away more quickly. ? Scabies can live on clothing or linens for up to 3 days. All of your child's recently used clothing, towels, stuffed toys, and bed linens should be washed in hot water and then dried in a dryer for at least 20 minutes on high heat. Items that cannot be washed should be enclosed in a plastic bag for at least 3 days. ? To help relieve itching, bathe your child in a cool bath or apply cool washcloths to the affected areas. ? Your child may return to school after treatment with the prescribed cream. SEEK MEDICAL CARE IF: ? The itching persists longer than 4 weeks after treatment. ? The rash spreads or becomes infected. Signs of infection include red blisters or yellow-zepeda crust. Document Released: 05/13/2006 Document Revised: 08/04/2012 Document Reviewed: 09/21/2009 ExitCare? Patient Information ?2014 Gtxh. This information is not intended to replace advice given to you by your health care provider. Make sure you discuss any questions you have with your health care provider. AL Estrada KRISTI L , have received the following patient education materials/instructions and have verbalized understanding: Patient Education Materials: Scabies Follow-up Instructions: With: Address: When: Jerri [address] [place] [address] Business (1) In 3 days Prescriptions: Patient Signature Date Clinician/Nurse Signature ___ Date 01/02/19 22:02:10 [facility] Encounters Encounter Date Encounter Type Care Provider Facility Start: 09-28-2021 End: 09-28-2021 ambulatory SWAPNIL CANNONEY Facility: Payers Date Payer Category Payer Unknown [id number] 1961 Unknown [id number] Summary Purpose Family History No Family History Records FoundNo Family History Records Found Advance Directives No Advanced Directives Records FoundNo Advanced Directives Records Found Additional Source Comments INFORMATION SOURCE (unrecogn ized section and content) DATE CREATED AUTHOR 12/12/2019 [facility] DATE CREATED AUTHOR AUTHOR'S ORGANIZ ATION 09/29/2021 [facility] FOR RECORDS PERTAINING TO PATIENTS WHO ARE OR HAVE BEEN ENROLLED IN A CHEMICAL DEPENDENCY/SUBSTANCEABUSE PROGRAM, SOME INFORMATION MAY BE OMITTED. This clinical summary was aggregated from multiple sources. Caution should be exercised in using it in the provision of clinical care. This summary normalizes information from multiple sources, and as a consequence, information in this document may materially change the coding, format and clinical context of patient data. In addition, data may be omitted in some cases. CLINICAL DECISIONS SHOULD BE BASED ON THE PRIMARY CLINICAL RECORDS. [employer] provides no warranty or guarantee of the accuracy or completeness of information in this document.
--- OUTSIDE RECORDS SUMMARY | 2023-05-18 07:31 | XMS_ITS | CCD ---
Author Name Unknown Address [facility] [facility] [address] [place] [address] Organization [facility] Care Team Providers Care Bell Valet Name Role Phone SWAPNIL CALIX Primary Care [...] Chief Complaint intermittent fevers since trip to [place] last 24 hours. denies nausea, vomiting, diarrhea [...] days 11/17/[address] [place] [address]- Business (1) Additional Instructions: Patient Education Viral [...] The case was discussed with: the physician interior design assistant, Evangelist Butcher PA-C. 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 Normal [facility] Comment on above: Result Comment: Elec tronically Signed By: Evangelist Butcher PA-C\.br\Date and Time Signed: 11/14/19 19:19 EDT\.br\Electronically Co-Signed By: Cb Luciano M.D.\.br\Date and Time Co-Signed: 11/18/19 09:27 EDT Coding Summary.on 11-16-2019 Coding Summary. CODING DATE: 11/16/2019 FINAL [facility] STATUS: Home (Routine DC) PAYOR: Hood ADMIT [...] Sanchez Date Saved: 11/16/2019 08:31 am Normal [facility] Consent for Treatmenton 10-26 Consent for Treatment [id number] 0CD:127 Normal [facility] Discharge Instructionson Discharge Instructions [id number] 0CD:127 Normal [facility] ED Clinical Summaryon 2019 ED Clinical Summary [address] [address] ED Clinical Summary Person Information Name: MARTINA MELENDEZ Gisele/[facility] Age: 29 Years : 1990 Sex: Female Language: Cymro PCP: Tim HARMAN, Jerri Amaya Marital Status: Single Phone: [phone] Visit Id: Visit Reason: Cough; Fever; FEVER, JUST RETURNED FROM [place] Speciality: Acuity: 3 Enc Type: Emergency Med [...] 19:34:51 11/14/2019 19:34:51 11/14/2019 19:34:51 ADDRESS: [address] [place] [id number] PHYS DOC NOTES: MEDICAL INFORMATION: Prescriptions Given: New Medications [facility], [address] [place] [id number], [phone] albuterol (ProAir HFA 90 mcg/inh inhalation aerosol) 1 Puffs Inhalation every 6 hours as needed for wheezing. Refills: 0. brompheniramine/dextro methorphan/PSE (Bromfed DM oral syrup) 5-10 mL By Mouth 4 times a day as needed for cold symptoms. Refills: 0. PATIENT EDUCATION INFORMATION: Instructions: Viral Infections; Fever, Adult Follow up: With: Address: When: Jerri Dumont [address] [place] [address] Business (1) In 3 days 11/17/2019 DIAGNOSIS: Fever; Viral URI Normal [facility] ED Patient Education Noteon 11-14-2019 ED Patient [...] coughing. HOME CARE INSTRUCTIONS ? Only take pitr-php-kwruuti or prescription medicines for pain, discomfort, diarrhea, [...] Document Reviewed: 09/17/2011 ExitCare? Patient Information ?2014 [employer]. This information is not intended to replace [...] thermometer is positioned as recommended by the public relations assistant. ? A rectal temperature is accurate and [...] Document Reviewed: 03/13/2012 ExitCare? Patient Information ?2015 [employer]. This information is not intended to replace advice given to you by your health care provider. Make sure you discuss any questions you have with your health care provider. Normal [facility] ED Patient Summaryon 020 ED Patient Summary [place] [id number] Patient Discharge Instructions Person Information Name: MARTINA MELENDEZ Age: 29 Years Arrival Date: 11/14/2019 18:13:56 Discharge Diagnosis: Fever; Viral URI Primary Care Physician: Jerri Dumont MD Provider Information Primary Provider: Cb Luciano M.D. Advanced Rn Production:Evangelist Butcher PA-C The exam and treatment you received in the Emergency Department were for an urgent problem and are not intended as complete care. It is important that you follow up with a doctor, nurse practitioner, or physician?s interior design assistant for ongoing care. If your symptoms [...] Address: When: [place] [address] [place] [address] Business (1) In 3 days 11/17/2019 In the event that this physician does not participate in your insurance network, please consult with your insurance company to find a nearby participating provider. Patient Education Materials: Viral Infections; Fever, Adult A MESSAGE TO ALL PATIENTS REGARDING OPIOIDS PRESCRIPTION OPIOIDS: WHAT YOU NEED TO KNOW Prescription opioids can be used to help relieve zfzbcess-wu-scawly pain and are often prescribed following a [...] be struggling with addiction, tell your health chiropractic care and ask for guidance or call [employer]?S National Helpline at 3-091-678-VUSF. v Source: US Department of Health and Human Services/Center for Disease Control & Prevention [facility] Medications Given: Medication Dose Route No medications found. Medication Information: New Medications [facility] [place], [place] [id number], [phone] albuterol (ProAir HFA 90 mcg/inh inhalation aerosol) 1 Puffs Inhalation every 6 hours as needed for wheezing. Refills: 0. brompheniramine/dextro methorphan/PSE (Bromfed DM oral syrup) 5-10 mL By Mouth 4 times a day as needed for cold symptoms. Refills: 0. Comment: Pharmacy Information: [facility] [place] , [place] Thank you for choosing [facility] Patient Education Materials: Viral Infections A [...] coughing. HOME CARE INSTRUCTIONS ? Only take xuap-vtu-ljwljnb or prescription medicines for pain, discomfort, diarrhea, [...] Document Reviewed: 09/17/2011 ExitCare? Patient Information ?2015 [employer]. This information is not intended to replace [...] thermometer is positioned as recommended by the public relations assistant. ? A rectal temperature is accurate and [...] Document Reviewed: 03/13/2012 ExitCare? Patient Information ?2014 [employer]. This information is not intended to replace advice given to you by your health care provider. Make sure you discuss any questions you have with your health care provider. IAL KRISTI L , have received the following patient education materials/instructions and have verbalized understanding: Patient Education Materials: Viral Infections; Fever, Adult Follow-up Instructions: With: Address: When: Jerri Dum[place] [address] Business (1) In 3 days 11/17/2019 Patient Signature Date Clinician/Nurse Signature ___ Date 11/14/2019 19:34:53 Normal [facility] Progress Note-Nurseon 2019 Progress Note-Nurse COVID swab completed and sent to lab [facility] Progress Note-Nurse Patient came into [facility] ER due to intermittent fevers and cough. patient denies nausea, vomiting, or diarrhea. Patient stated family just returned from [place] vacationing. Family in [place] are currently at the hospital due to covid symptoms. Length of stay was a week. returned yesterday. Normal [facility] Coding Summary.on 01-05-2019 Coding Summary. CODING DATE: 01/05/2019 FINAL [facility] STATUS: Home (Routine DC) PAYOR: Hood ADMIT [...] Sanchez Date Saved: 01/05/2019 07:23 am Normal [facility] ED Clinical Summaryon 2018 ED Clinical Summary [place] [id number] ED Clinical Summary Person Information Name: MARTINA MELENDEZ Gisele/[facility] Age: 28 Years : 1990 12:00 AM Sex: Female Language: Cymro PCP: Jerri Dumont MD Marital Status: Single Phone: [phone] Visit Id: Visit Reason: Rash; SCABIES Speciality: [...] 10:02 PM 01/02/2019 10:02 PM ADDRESS: [address] [place] [id number] PHYS DOC NOTES: MEDICAL INFORMATION: Prescriptions Given: PATIENT EDUCATION INFORMATION: Instructions: Scabies Follow up: With: Address: When: [place] [address] [place] [address] Business (1) In 3 days DIAGNOSIS: 1:Scabies Normal [facility] ED Note-Physicianon 01-04-20 ED Note-Physician Basic Information [...] Dumont In [address] [place] [address]- Business (1) Additional Instructions: Patient Education Scabies [...] 04/30/2018 Current, 04/06/2018 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 Normal [facility] Comment on above: Result Comment: Elec tronically [...] Document Reviewed: 09/21/2009 ExitCare? Patient Information ?2014 [employer]. This information is not intended to replace advice given to you by your health care provider. Make sure you discuss any questions you have with your health care provider. Normal [facility] ED Patient Summaryon 019 ED Patient Summary [address] [address] Patient Discharge Instructions Person Information Name: MARTINA MELENDEZ Age: 28 Years Arrival Date: 01/02/2019 9:05 PM Discharge Diagnosis: 1:Scabies Primary Care Physician: Jerri Dumont MD Provider Information Primary Provider: Cb Luciano M.D. Advanced Rn Production:None The exam and treatment you received in the Emergency Department were for an urgent problem and are not intended as complete care. It is important that you follow up with a doctor, nurse practitioner, or physician?s interior design assistant for ongoing care. If your symptoms [...] With: Address: When: Jerri Dum[place] [address] Business (1) In 3 days In the event that this physician does not participate in your insurance network, please consult with your insurance company to find a nearby participating provider. Patient Education Materials: Scabies A MESSAGE TO ALL PATIENTS REGARDING OPIOIDS PRESCRIPTION OPIOIDS: WHAT YOU NEED TO KNOW Prescription opioids can be used to help relieve fmhrbyjq-ho-dzwvwe pain and are often prescribed following a [...] be struggling with addiction, tell your health chiropractic care and ask for guidance or call [facility]S National Helpline at 8-156-354-BFLS. g Source: US Department of Health and Human Services/Center for Disease Control & Prevention [facility] Medications Given: Medication Dose Route No medications found. Medication Information: Comment: Pharmacy Information: Thank you for choosing [facility] Patient Education Materials: Scabies Scabies are [...] Document Reviewed: 09/21/2009 ExitCare? Patient Information ?2014 [employer]. This information is not intended to replace advice given to you by your health care provider. Make sure you discuss any questions you have with your health care provider. AL Estrada KRISTI L , have received the following patient education materials/instructions and have verbalized understanding: Patient Education Materials: Scabies Follow-up Instructions: With: Address: When: Jerri Fig[address]agles [address] [place] [address] Business (1) In 3 days Prescriptions: Patient Signature Date Clinician/Nurse Signature ___ Date 01/02/19 22:02:10 [facility] Encounters Encounter Date Encounter Type Care Provider Facility Start: 09-28-2021 End: 09-28-2021 ambulatory SWAPNIL CANNONEY Facility: Payers Date Payer Category Payer Unknown [id number] 1961 Unknown [id number] Summary Purpose Family History No Family History Records FoundNo Family History Records Found Advance Directives No Advanced Directives Records FoundNo Advanced Directives Records Found Additional Source Comments INFORMATION SOURCE (unrecogn ized section and content) DATE CREATED AUTHOR 12/12/2019 [facility] DATE CREATED AUTHOR AUTHOR'S ORGANIZ ATION 09/29/2021 [facility] FOR RECORDS PERTAINING TO PATIENTS WHO ARE [...] BE BASED ON THE PRIMARY CLINICAL RECORDS. [employer] provides no warranty or guarantee of the accuracy or completeness of information in this document.
--- OUTSIDE RECORDS SUMMARY | 2023-05-18 07:32 | XMS_ITS | CCD ---
Author Name Unknown Address [facility] [address] [place] [address] Organization [facility] Care Team Providers Care Foot Worker Name Role Phone SWAPNIL CALIX Primary Care [...] Chief Complaint intermittent fevers since trip to [place] last 24 hours. denies nausea, vomiting, diarrhea History of Present Illness 29-year-old female presents to the emergency room for evaluation of the fever and cough. The patient states the fever started today and cough followed thereafter. She states that she is recently on vacation in [place]. She states she is on multiple people [...] days 11/17/[address] [place] [id number]- Business (1) Additional Instructions: Patient Education Viral [...] The case was discussed with: the physician compounding assistant, Evangelist Butcher PA-C. 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 Normal [facility] Comment on above: Result Comment: Elec tronically Signed By: Evangelist Butcher PA-C\.br\Date and Time Signed: 11/14/19 19:19 EDT\.br\Electronically Co-Signed By: Cb Luciano M.D.\.br\Date and Time Co-Signed: 11/18/19 09:27 EDT Coding Summary.on 11-16-2019 Coding Summary. CODING DATE: 11/16/2019 FINAL [facility] STATUS: Home (Routine DC) PAYOR: Hood ADMIT [...] Sanchez Date Saved: 11/16/2019 08:31 am Normal [facility] Consent for Treatmenton 10-26 Consent for Treatment [id number] 0CD:127 Normal [facility] Discharge Instructionson Discharge Instructions [id number] 0CD:127 Normal [facility] ED Clinical Summaryon 2019 ED Clinical Summary [address] [address] ED Clinical Summary Person Information Name: MARTINA MELENDEZ [facility] Age: 29 Years : 1990 Sex: Female Language: Taiwanese PCP: Tim HARMAN, Jerri Amaya Marital Status: Single Phone: [phone] Visit Id: Visit Reason: Cough; Fever; FEVER, JUST RETURNED FROM [place] Speciality: Acuity: 3 Enc Type: Emergency Med [...] 19:34:51 11/14/2019 19:34:51 11/14/2019 19:34:51 ADDRESS: [address] [place] [id number] PHYS DOC NOTES: MEDICAL INFORMATION: Prescriptions Given: New Medications [facility], [address] [place] [id number], [phone] albuterol (ProAir HFA 90 mcg/inh inhalation aerosol) 1 Puffs Inhalation every 6 hours as needed for wheezing. Refills: 0. brompheniramine/dextro methorphan/PSE (Bromfed DM oral syrup) 5-10 mL By Mouth 4 times a day as needed for cold symptoms. Refills: 0. PATIENT EDUCATION INFORMATION: Instructions: Viral Infections; Fever, Adult Follow up: With: Address: When: Jerri Dumont [address] [place] [address] Business (1) In 3 days 11/17/2019 DIAGNOSIS: Fever; Viral URI Normal [facility] ED Patient Education Noteon 11-14-2019 ED Patient [...] coughing. HOME CARE INSTRUCTIONS ? Only take vtvv-zya-nteotmp or prescription medicines for pain, discomfort, diarrhea, [...] Document Reviewed: 09/17/2011 ExitCare? Patient Information ?2014 [employer]. This information is not intended to replace [...] thermometer is positioned as recommended by the photographer portrait. ? A rectal temperature is accurate and [...] There is an association with Nadeem's syndrome. Andeem's syndrome is a rare but potentially deadly [...] Document Reviewed: 03/13/2012 ExitCare? Patient Information ?2015 [employer]. This information is not intended to replace advice given to you by your health care provider. Make sure you discuss any questions you have with your health care provider. Normal [facility] ED Patient Summaryon 020 ED Patient Summary [place] [id number] Patient Discharge Instructions Person Information Name: MARTINA MELENDEZ Age: 29 Years Arrival Date: 11/14/2019 18:13:56 Discharge Diagnosis: Fever; Viral URI Primary Care Physician: Jerri Dumont MD Provider Information Primary Provider: Cb Luciano M.D. Advanced Paper Conservator:Evangelist Butcher PA-C The exam and treatment you received in the Emergency Department were for an urgent problem and are not intended as complete care. It is important that you follow up with a doctor, nurse practitioner, or physician?s compounding assistant for ongoing care. If your symptoms [...] Address: When: [place] [place] [address] Business (1) In 3 days 11/17/2019 In the event that this physician does not participate in your insurance network, please consult with your insurance company to find a nearby participating provider. Patient Education Materials: Viral Infections; Fever, Adult A MESSAGE TO ALL PATIENTS REGARDING OPIOIDS PRESCRIPTION OPIOIDS: WHAT YOU NEED TO KNOW Prescription opioids can be used to help relieve cxompmln-vz-oncxqd pain and are often prescribed following a [...] be struggling with addiction, tell your health manager home healthcare and ask for guidance or call [employer]?S National Helpline at 8-123-555-OIUG. v Source: US Department of Health and Human Services/Center for Disease Control & Prevention [facility] Medications Given: Medication Dose Route No medications found. Medication Information: New Medications [facility] [place], [place] [id number], [phone] albuterol (ProAir HFA 90 mcg/inh inhalation aerosol) 1 Puffs Inhalation every 6 hours as needed for wheezing. Refills: 0. brompheniramine/dextro methorphan/PSE (Bromfed DM oral syrup) 5-10 mL By Mouth 4 times a day as needed for cold symptoms. Refills: 0. Comment: Pharmacy Information: [facility] [place] , [facility] Thank you for choosing [facility] Patient Education Materials: Viral Infections A [...] coughing. HOME CARE INSTRUCTIONS ? Only take snqd-hhh-yqhfhvm or prescription medicines for pain, discomfort, diarrhea, [...] Document Reviewed: 09/17/2011 ExitCare? Patient Information ?2015 [employer]. This information is not intended to replace [...] thermometer is positioned as recommended by the photographer portrait. ? A rectal temperature is accurate and [...] Document Reviewed: 03/13/2012 ExitCare? Patient Information ?2014 [employer]. This information is not intended to replace advice given to you by your health care provider. Make sure you discuss any questions you have with your health care provider. IAL KRISTI L , have received the following patient education materials/instructions and have verbalized understanding: Patient Education Materials: Viral Infections; Fever, Adult Follow-up Instructions: With: Address: When: Jerri Dum[place] [address] Business (1) In 3 days 11/17/2019 Patient Signature Date Clinician/Nurse Signature ___ Date 11/14/2019 19:34:53 Normal [facility] Progress Note-Nurseon 2019 Progress Note-Nurse COVID swab completed and sent to lab [facility] Progress Note-Nurse Patient came [facility] ER due to intermittent fevers and cough. patient denies nausea, vomiting, or diarrhea. Patient stated family just returned from [place] vacationing. Family in [place] are currently at the hospital due to covid symptoms. Length of stay was a week. returned yesterday. Normal [facility] Coding Summary.on 01-05-2019 Coding Summary. CODING DATE: 01/05/2019 FINAL [facility] STATUS: Home (Routine DC) PAYOR: Hood ADMIT [...] Sanchez Date Saved: 01/05/2019 07:23 am Normal [facility] ED Clinical Summaryon 2018 ED Clinical Summary [place] [id number] ED Clinical Summary Person Information Name: MARTINA MELENDEZ [facility] Age: 28 Years : 1990 12:00 AM Sex: Female Language: Taiwanese PCP: Jerri Dumont MD Marital Status: Single Phone: [phone] Visit Id: Visit Reason: Rash; SCABIES Speciality: [...] 10:02 PM 01/02/2019 10:02 PM ADDRESS: [address] [place] [id number] PHYS DOC NOTES: MEDICAL INFORMATION: Prescriptions Given: PATIENT EDUCATION INFORMATION: Instructions: Scabies Follow up: With: Address: When: [place] [address] [place] [address] Business (1) In 3 days DIAGNOSIS: 1:Scabies Normal [facility] ED Note-Physicianon 01-04-20 ED Note-Physician Basic Information [...] Dumont In [address] [place] [address]- Business (1) Additional Instructions: Patient Education Scabies [...] 04/30/2018 Current, 04/06/2018 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 Normal [facility] Comment on above: Result Comment: Elec tronically [...] Document Reviewed: 09/21/2009 ExitCare? Patient Information ?2014 [employer]. This information is not intended to replace advice given to you by your health care provider. Make sure you discuss any questions you have with your health care provider. Normal [facility] ED Patient Summaryon 019 ED Patient Summary [address] [address] Patient Discharge Instructions Person Information Name: MARTINA MELENDEZ Age: 28 Years Arrival Date: 01/02/2019 9:05 PM Discharge Diagnosis: 1:Scabies Primary Care Physician: Jerri Dumont MD Provider Information Primary Provider: Cb Luciano M.D. Advanced Paper Conservator:None The exam and treatment you received in the Emergency Department were for an urgent problem and are not intended as complete care. It is important that you follow up with a doctor, nurse practitioner, or physician?s compounding assistant for ongoing care. If your symptoms [...] With: Address: When: Jerri Dum[place] [address] Business (1) In 3 days In the event that this physician does not participate in your insurance network, please consult with your insurance company to find a nearby participating provider. Patient Education Materials: Scabies A MESSAGE TO ALL PATIENTS REGARDING OPIOIDS PRESCRIPTION OPIOIDS: WHAT YOU NEED TO KNOW Prescription opioids can be used to help relieve dzqandgu-df-jqfyyh pain and are often prescribed following a [...] be struggling with addiction, tell your health manager home healthcare and ask for guidance or call [facility]S National Helpline at 1-930-636-NSRK. k Source: US Department of Health and Human Services/Center for Disease Control & Prevention [facility] Medications Given: Medication Dose Route No medications found. Medication Information: Comment: Pharmacy Information: Thank you for choosing [facility] Patient Education Materials: Scabies Scabies are [...] Document Reviewed: 09/21/2009 ExitCare? Patient Information ?2014 [employer]. This information is not intended to replace advice given to you by your health care provider. Make sure you discuss any questions you have with your health care provider. AL Estrada KRISTI L , have received the following patient education materials/instructions and have verbalized understanding: Patient Education Materials: Scabies Follow-up Instructions: With: Address: When: Jerri Figueroagles [address] [place] [address] Business (1) In 3 days Prescriptions: Patient Signature Date Clinician/Nurse Signature ___ Date 01/02/19 22:02:10 [facility] Encounters Encounter Date Encounter Type Care Provider Facility Start: 09-28-2021 End: 09-28-2021 ambulatory SWAPNIL CANNONEY Facility: Payers Date Payer Category Payer Unknown [id number] 1961 Unknown [id number] Summary Purpose Family History No Family History Records FoundNo Family History Records Found Advance Directives No Advanced Directives Records FoundNo Advanced Directives Records Found Additional Source Comments INFORMATION SOURCE (unrecogn ized section and content) DATE CREATED AUTHOR 12/12/2019 [facility] DATE CREATED AUTHOR AUTHOR'S ORGANIZ ATION 09/29/2021 [facility] FOR RECORDS PERTAINING TO PATIENTS WHO [...] BE BASED ON THE PRIMARY CLINICAL RECORDS. [employer] provides no warranty or guarantee of the accuracy or completeness of information in this document.
[2023-05-20 07:07] LABS: Candida species Negative (Negative); Gardnerella vaginalis Negative (Negative); Trichomonas vaginalis Negative (Negative)
[2023-05-24 12:08] LABS: HPV Aptima Negative (Negative); Pap IG (Image Guided) Note (.)
== END 2023-05-17 00:01 | disposition home or self-care (01) ==
LOC: LAB
PROVIDERS: PCP Nurse Practitioner Primary Care; Visit Provider Nurse Practitioner Primary Care
DX: Z11.3 Encounter for screening for infections with a predominantly sexual mode of transmission (principal); Z12.4 Encounter for screening for malignant neoplasm of cervix; Z11.51 Encounter for screening for human papillomavirus (HPV)
CPT/HCPCS: 87480; 87510; 87624; 87660

== ENCOUNTER 2025-05-22 21:06 | Emergency (ER) | payer OTHER, SELFPAY ==
[2025-05-22 21:12] VITALS: BP 140/88; PULSE 103; TEMP 37.9; O2SAT 99; BMI 30.1
--- OUTSIDE RECORDS SUMMARY | 2025-05-22 21:26 | XMS_ITS | CCD ---
Author Organization [facility] Team Providers Care Computer Education Professor Name Role Phone SWAPNIL CALIX Primary Care Unavailable FILIBERTO, DR MENON Attending Unavailable FILIBERTO, DR MENON Consulting Unavailable DR LYNSEY DE LOS SANTOS Admitting Unavailable Maureen BENNETT-Katya MCINTYRE Primary Care Pro vider LUDIN MCKEON Attending Unavailable KATYA REDDY Referring Unavailab le KATYA REDDY Primary Care Unavailab STEPHANIE Buck Attending Unavailable KATYA REDDY Primary Care Unavailab le BERNABE ROACH Referring Unavailable ADAN BRADFORD Attending Unavailable NO PCP, NO PCP Primary Care Unavailable KATYA REDDY Referring Unavailab le NO PCP, NO PCP Primary Care Unavailable KATYA REDDY Referring Unavailab le NO PCP, NO PCP Primary Care Unavailable KATYA REDDY Referring Unavailab le KATYA REDDY Primary Care Unavailab LUDIN Sánchez Referring Unavailable KATYA REDDY Primary Care Unavailab LUDIN Sánchez Admitting Unavailable LUDIN MCKEON Attending Unavailable KATYA REDDY Primary Care Unavailab TRACEY Bell Attending Unavailable KATYA REDDY Primary Care Unavailab le KATYA REDDY Primary Care Unavailab ERASMO Banuelos Attending Unavailable August HARMAN, Robert Attending Provider Katya Reddy APRN Primary Care Provide r Katya Reddy APRN Referring Provider Robert Koch MD Other Provider Maureen INKJET OPERATOR-Katya MCINTYRE Primary Care Pro vider Katya Reddy Primary Care Unavailab le Asaad, Imad Admitting Unavailable Asaad, Imad Attending Unavailable Katya Reddy Primary Care Unavailab le Asaad, Imad Admitting Unavailable Asaad, Imad Attending Unavailable Provider, None Primary Care Unavailable Le, Alexis K Attending Unavailable Le, Alexis K Admitting Unavailable Le, Alexis K Attending Unavailable Le, Alexis K Admitting Unavailable Provider, None Primary Care Unavailable Allergies Allergy ClassificationReported Allergen(s)Allergy TypeDate of OnsetReaction(s) Facility (1 source)No Known Medication Allergies; Translations: [No Known Medication Allergies]Propensity to adverse reactions to drug (disorder)[facility] Repository Medications Current Medications MedicationDrug Class(es)DatesSig (Normalized)Sig (Original)acetaminophen 325 mg oral tablet (4 sources)take 2 tablets by mouth once daily as needed for painacetaminophen (TYLENOL) 325 mg tablet Take 2 tablets (650 mg total) by mouth daily as needed for pain. Activeacetaminophen 325 mg / oxyCODONE hydrochloride 5 mg oral tablet (1 source)Opioid AgonistStart: 06-23-2024 End: 03-85-8999ciwWLLLLN-acetaminophen (PERCOCET) 5-325 mg per tablet Indications: Chronic cholecystitis , Gallbladder sludge Take 1 tablet by mouth every 6 (six) hours as needed for pain for up to 8 doses. Max Daily Amount: 4 tablets 8 tablet 06/23/2024 07/07/2024 Discontinuedamitriptyline hydrochloride 25 mg oral tablet (3 sources)Tricyclic AntidepressantStart: 45-06-4569uxbn 1 tablet by mouth once dailyAmitriptyline 25 mg tablet Active 25 MG PO Daily October 29, 2024 12:00am Complies with drug therapyARIPiprazole 5 mg oral tablet (2 sources)Atypical AntipsychoticStart: 55-22-0286ldls 1 tablet by mouth once dailyAripiprazole (Abilify) 5 mg tablet Active 5 MG PO Daily November 16, 2024 12:00am Complies with drug therapybusPIRone hydrochloride 10 mg oral tablet (4 sources)Start: 15-76-4968Eheciidog 10 mg tablet Active 15 MG PO Twice daily October 29, 2024 12:00am Complies with drug therapyStart: 81-83-2117csyd 1 tablet by mouth twice dailyBuspirone 10 mg tablet Active 10 MG PO Twice daily October 29, 2024 12:00amtake 1 tablet by mouth three times dailybusPIRone (BUSPAR) 10 mg tablet Take 1 tablet (10 mg total) by mouth 3 (three) times a day. Active hydrOXYzine hydrochloride 25 mg oral tablet (2 sources)AntihistamineStart: 41-88-4531igic 1 tablet by mouth once daily at bedtime as needed for anxietyHydroxyzine Hcl 25 mg tablet Active 25 MG PO Daily at bedtime as needed for anxiety November 162:00am Complies with drug therapyibuprofen 200 mg oral tablet (2 sources)Nonsteroidal Anti-inflammatory Drugtake 1 tablet by mouth three times dailyibuprofen (ADVIL,MOTRIN) 200 mg tablet Take 1 tablet (200 mg total) by mouth 3 (three) times a day.ActiveLactobacillus acidophilus (4 sources)Lactobacillus acidophilus (PROBIOTIC ORAL) Take by mouth. Take one gummy by mouth once daily ActivelamoTRIgine 25 mg oral tablet (2 sources)Mood Stabilizer, Anti-epileptic AgentStart: 59-03-8745jcct 1 tablet by mouth once dailyLamotrigine (Lamictal) 25 mg tablet Active 25 MG PO Daily November 16, 2024 12:00am Complies with drug therapymetoclopramide 10 mg oral tablet (2 sources)Dopamine-2 Receptor AntagonistStart: 62-40-9058xwza 1 tablet by mouth every six hoursmetoclopramide (REGLAN) 10 mg tablet Take 1 tablet (10 mg total) by mouth every 6 (six) hours. 30 tablet 05/12/2024 ActiveMULTIVITAMIN ORAL (4 sources)MULTIVITAMIN ORAL Take by mouth. Take one gummy by mouth daily Active Sihdqnwcjmgj-Adqq-Hxzza Acid (Women's Daily Multivitamin) 18-400 mg-mcg tablet (3 sources)Start: 63-68-9237ofcz 1 tablet by mouth once daily Onnzedpnttxj-Psvw-Djcfr Acid (Women's Daily Multivitamin) 18-400 mg-mcg tablet Active 1 TAB PO Daily October 29, 2024 12:00am Complies with drug therapyStart: 70-40-2870zxbz 1 tablet by mouth once dailyStart: 17-03-1396lrhr 1 tablet by mouth once fvtlrUhannlonlret-Rgfj-Yufyv Acid (Women's Daily Multivitamin) 18-400 mg-mcg tablet Active 1 TAB PO Daily October 29, 2024 12:00amomeprazole 40 mg delayed release oral capsule (5 sources)Proton Pump InhibitorStart: 20-16-2510vcjy 1 capsule by mouth once dailyPNV no.95/ferrous fum/folic ac ( ORAL) (2 sources)take 1 tablet by mouth once daily as neededPNV no.95/ferrous fum/folic ac ( ORAL) Take 1 tablet by mouth daily as needed. Gummy ActivevalACYclovir 1000 mg oral tablet (4 sources)Herpesvirus Nucleoside Analog DNA Polymerase Inhibitor, Herpes Simplex Virus Nucleoside Analog DNA Polymerase Inhibitor, Herpes Zoster Virus Nucleoside Analog DNA Polymerase InhibitorStart: 54-94-1788Npygbtzbdfqw 1 gram tablet Active 500 MG PO Daily October 29, 2024 12:00am Complies with drug therapy take 1 tablet by mouth in the morning, then take 1 tablet by mouth at bedtime valACYclovir (VALTREX) 500 mg tablet Take 1 tablet (500 mg total) by mouth in the morning and 1 tablet (500 mg total) before bedtime. Active Completed/Discontinued Medications MedicationDrug Class(es)DatesSig (Normalized)Sig (Original) ,Uflx68-Iuzo-Irfmm-Ccc (Women's Plus Dha) 28 mg-975 mcg- 200 mg combo pack (3 sources)Start: 10-29-2024 End: 03-77-7111Vvzlfkzv,Tjzk20-Xhva-Ebdfr-Nvq (Women's Plus Dha) 28 mg- 975 mcg- 200 mg combo pack Discontinued PKG PO October 29, 2024 12:00am November 16, 2024 10:01amStart: 83-81-2225Jnhobfer,Tveu53-Bgxl-Idmri-Ulb (Women's Plus Dha) 28 mg-975 mcg- 200 mg combo pack Active PKG PO October 29, 2024 12:00am Problems Active Problems Problem ClassificationProblemDateDocumented DateEpisodic/ChronicDisorders of teeth and jaw (4 sources)Other specified disorders of teeth and supporting structures; Translations: [Periapical abscess without sinus]Onset: 73-16-1055Rvpvlvvv Essential hypertension (2 sources)Essential (primary) hypertension; Translations: [Hypertensive disorder]Onset: 73-32-5910YfsrpbfAkoeub and vomiting (16 sources)Vomiting; Translations: [Nausea with vomiting, unspecified]Onset: 471577-90-6192FwndyaooQbikw connective tissue disease (1 source)Other specified soft tissue disorders; Translations: [OTHER SPEC SOFT TISSUE DISORDERS]Onset: 62-45-3907LpqlmstsHnthr gastrointestinal disorders (1 source)Constipation, unspecified; Translations: [Constipation, unspecified] Onset: 21-11-2893SlzkvjwxEokqs liver diseases (1 source)Steatosis of liver; Translations: [Fatty (change of) liver, not elsewhere classified]32-99-6596NgrroygUeqsndgo codes; unclassified (1 source)Acquired absence of other specified parts of digestive tract; Translations: [Acquired absence of other specified parts of digestive tract] Onset: 11-41-0352KmgmsvfaCkddeqloo and history of mental health and substance abuse codes (2 sources)Ex-smoker; Translations: [Personal history of nicotine dependence] Onset: 844810-57-6863MvtebenqVqvoehfso-qfmcrhw disorders (2 sources)Nicotine dependence, cigarettes, uncomplicated; Translations: [History of clinical finding in subject]Onset: hronic Substance-related disorders (1 source)Cannabis use, unspecified, uncomplicated; Translations: [Cannabis use, unspecified, uncomplicated]Onset: 51-84-0917EqozytlgPnszvauxhxvj (1 source)POST-OP VISITOnset: 03-78-1558Cxxhlueapszq (1 source)Cannabis use, unspecified, in remission; Translations: [Cannabis use, unspecified, in remission]Onset: 34-73-3712Pzqckkbeoxfa (1 source)Abdominal Pain; Vomiting; Chest PainOnset: 05-12-2024 Past or Other Problems Problem ClassificationProblemDateDocumented DateEpisodic/ChronicAbdominal pain (3 sources)Abdominal pain; Translations: [Right upper quadrant pain]Onset: 43-55-2340QygcfalbInbkhck tract disease (6 sources)Cholelithiasis AND cholecystitis without obstruction; Translations: [Calculus of gallbladder with chronic cholecystitis without obstruction]Onset: 270024-53-7769SvbixftwRicljvh dysrhythmias (1 source)Palpitations; Translations: [Palpitations]Onset: 41-05-9205Pmcvcquv Other lower respiratory disease (1 source)Shortness of breath; Translations: [Shortness of breath]Onset: 25-33-0337HdrlqwbbTahnw infection (1 source)Viral infection, unspecified; Translations: [Viral infection, unspecified]Onset: 33-51-3490Rqsotipv Results Test NameValueInterpretationReference RangeFacilityCoding Summaryon 12-16-2024 Coding SummaryHTMLBase 64 TbfjqkltAJp6uKz+PGhlYWQ+ZK4XEROfA79wdOSttF3oJ0TMIXhAIkqmZQQBAXzVEcWtalHzRR3fcSPj ZXJu [file] Y29 (more content not included)...[facility].Auto Diff 141-72-2056Mxas Avery %5 %Normal1-12[facility] CenterComment on above:Performed By: #### [id number], 3669325, 7659054, 7806503418, 4847325629, 0343355, 1784750173, [id number] ####[facility] (DEFAULT)[address] [place] [address] 50084Cbqn Abs#0.1 z04Tlpubi7.0-0.2MThe University of Toledo Medical CenterComment on above: Performed By: #### [id number], 8001331, 7110980, 8202202190, 3370737104, 0370182, 4373483525, 2118782990 ####[facility] (DEFAULT)[address] [place] [address] 70331Mnixgrrzw/100 WBC (Bld)0.9 %Normal0.2-2.0[facility] Comment on above:Performed By: #### 15130684, 7627005, 0719917, 6577374972, 3814095015, 8625888, 7147435399, 7649147153 ####[facility] (DEFAULT)[address] [place] [address] 65490Tct Abs#0.1 k35Sohrjo4.0-0.4[facility] Comment on above:Performed By: #### [id number], 0178942, 9400158, 4611594480, 7310912533, 4067875, 5886754220, 0265499979 ####[facility] (DEFAULT)[address] [place] [address] 92053Tbxbmpfwheh/100 WBC (Bld)0.7 %Low0.9-4.0 [facility] CenterComment on above:Performed By: #### 28285471, 1616580, 0578663, 0954232919, 0335862062, 9858130, 0529771641, 2261754667 ####[facility] (DEFAULT)[address] [place] [address] 13772Rofqw Abs#2.0 m87Gwqqhm4.3-2.9 [facility] CenterComment on above:Performed By: #### 50228979, 0184473, 9673388, 7417858287, 9615360516, 0137003, 2606592448, 8183348491 ####[facility] (DEFAULT)[address] [place] [address] 17455Byoxsfccoqw/100 WBC (Bld)20 % Pqkeuu52-07Tneyifqf HospitalComment on above:Performed By: #### 55911176, 0492391, 3261081, 5020720616, 3240195522, 3212700, 4406023071, 8252119199 ####[facility] (DEFAULT)[address] [place] [address] 87597Pwqh Abs# 0.6 e40Xuqibg7.0-0.8[facility] CenterComment on above:Performed By: #### 01204808, 7843801, 2441999, 1133628545, 6114558557, 1877585, 7601176067, 9027841301 ####[facility] (DEFAULT)[address] [place] [address] 83052Dqef Abs#7.5 j64Ggnyzd8.5-9.2[facility] HospitalComment on above:Performed By: #### 31632802, 6531866, 9351338, 6200021129, 7132545668, 2989410, 5970022932, 6149446686 ####[facility] (DEFAULT)[address] [place] [address] 79646Jlifxiggeru/100 WBC (Bld)73 %Axqdsc73-87Mbxmhcdm Hospital Comment on above:Performed By: #### 88555262, 5872194, 7020646, 2094409103, 3871687695, 2920526, 2968203143, 7930917314 ####[facility] (DEFAULT)[address] [place] [address] 74072EQU w/ Auto Diffon 24-95-2034Owbzmdnmorm distribution width (RBC) [Ratio]13.4 %Fmmcxf81.5-15.0[facility] HospitalComment on above:Performed By: #### 79179246, 8083373, 2162216, 8142986306, 1160644907, 6970466, 2688489944, 2822369625 ####[facility] (DEFAULT)[address] [place] [address] 77496Vigjltikbm (Bld) [Volume fraction]40.0 %Normal 33.7-40.4[facility] HospitalComment on above:Performed By: #### 53511180, 1187094, 0337309, 0993322042, 1468139753, 5359932, 4268333550, 5407977701 ####[facility] (DEFAULT)[address] [place] [address] 88230Gcpxngwpvi (Bld) [Mass/Vol]13.9 g/vDHkbtps99.3-15.9[facility] HospitalComment on above:Performed By: #### 68041503, 2576030, 0547101, 7887523910, 4078544944, 2739807, 9896395659, 9782568213 ####[facility] (DEFAULT)[address] [place] [address] 54831Flk Diff?AutoInvalid Interpretation [facility] Comment on above:Performed By: #### 72415158, 3704469, 7166325, 7572703083, 9628703168, 0856221, 9138301975, 9443516524 ####[facility] (DEFAULT)[address] [place] [address] 99984CJC (RBC) [Entitic mass]30 ioIxkktm02-66 [facility] CenterComment on above:Performed By: #### 02312038, 3422843, 2421999, 5295315919, 2737378785, 1007999, 4702038669, 8393336496 ####[facility] (DEFAULT)[address] [place] [address] 56195BMPY (RBC) [Mass/Vol]35 g/dL Gidpsz64-26Wzjmfyni HospitalComment on above:Performed By: #### 39695619, 4956646, 4494695, 6252407614, 8636084015, 0103502, 1559730711, 2900745470 ####[facility] (DEFAULT)[address] [place] [address] 20765IXQ (RBC) [Entitic vol]87 wKMqhjzd30-323Zstuwvos HospitalComment on above:Performed By: #### 29740245, 6260362, 6695218, 3726632677, 3664701531, 6089110, 0634817059, 6038548671 ####[facility] (DEFAULT)[address] [place] [address] 53706Bgrpnuzl670 o57Iycnfx730-392Zvdpzxqk HospitalComment on above:Performed By: #### 12610427, 3890336, 0297512, 0745172954, 0613790462, 9442605, 2176847336, 7937680391 ####[facility] (DEFAULT)[address] [place] [address] 91333Jjvrpfif mean volume (Bld) [Entitic vol]6.9 fLNormal6.3-10.2[facility] HospitalComment on above:Performed By: #### 08902545, 2236013, 7919846, 6809308487, 8281490629, 7233774, 2952231089, 0689824419 ####[facility] (DEFAULT)[address] [place] [address] 08612VNP0.59 b06Wjqzwg2.70-5.30 [facility] HospitalComment on above:Performed By: #### 50253901, 3493260, 9901587, 8305055542, 2480597661, 2674416, 1456458014, 1524757579 ####[facility] (DEFAULT)[address] [place] [address] 19313XTK37.3 u94Nkupkm3.5-10.5 [facility] HospitalComment on above:Performed By: #### 01392236, 6548411, 2201486, 6232380156, 6480936483, 5717393, 1227370267, 0320783143 ####[facility] (DEFAULT)[address] [place] [address] 34967TSJ Standardon 98-43-6645iAUU Non AA>60Invalid Interpretation CodeSelect [facility] HospitalComment on above:Performed By: #### 82827266, 8830230, 9906002, 0621047332, 3068053735, 2276736, 1691268899, 4631360562 ####[facility] (DEFAULT)[address] [place] [address] 10843pEVV AA>60Invalid Interpretation [facility] HospitalComment on above:Performed By: #### 94588141, 8363694, 8399162, 2613855142, 2723024650, 3842181, 7052917210, 3291307939 ####[facility] (DEFAULT)[address] [place] [address] 20705Irljlyc [Mass/Vol]5.3 g/dLHigh3.5-5.0[facility] HospitalComment on above:Performed By: #### 43224833, 9342530, 8847497, 9940319297, 0909523917, 4919536, 1368874797, 1344078580 ####[facility] (DEFAULT)[address] [place] [address] 12566Tny Phos38 IU/RNfcvfb04-91 [facility] HospitalComment on above:Performed By: #### 75639312, 5254927, 6253601, 4070488661, 3605981383, 5330221, 5412207544, 8250824119 ####[facility] (DEFAULT)[address] [place] [address] 12496GPT [Catalytic activity/Vol]31.0 U/FKfqgwo99.0-54.0[facility] HospitalComment on above:Performed By: #### 18135890, 4922472, 9043962, 7142275780, 8523429162, 9021979, 5812333075, 3460732805 ####[facility] (DEFAULT)[address] [place] [address] 01820DWG [Catalytic activity/Vol]28 U/DOpxcwq60-01Jdsmwckh HospitalComment on above: Performed By: #### 43930878, 9762083, 2043176, 8459471713, 8384451889, 2246103, 2203475121, 9139725879 ####[facility] (DEFAULT)[address] [place] [address] 29299Mbkx Total1.6 mg/dLHigh0.3-1.2[facility] HospitalComment on above:Performed By: #### 91016673, 6198210, 7981305, 3436957303, 0382625140, 6166883, 5373105378, 6711058539 ####[facility] (DEFAULT)[address] [place] [address] 07160Qjuthru [Mass/Vol]9.8 mg/dLNormal8.9-10.3[facility] HospitalComment on above:Performed By: #### 28071799, 6014132, 1971312, 1945256831, 9414982652, 4268382, 3860618591, 5192323706 ####[facility] (DEFAULT)[address] [place] [address] 29077Sbnxnyca [Moles/Vol]99 mmol/LLow 101-111[facility] CenterComment on above:Performed By: #### 06620641, 7183878, 2145571, 8727469048, 5205877443, 4857293, 2766413049, 2675725816 ####[facility] (DEFAULT)[address] [place] [address] 13608UN2 [Moles/Vol]25 mmol/MWgfwxh25-90Hjcpoqvw HospitalComment on above:Performed By: #### 14705210, 7899391, 4199780, 6712617535, 4806521774, 0981624, 1196300905, 7134387409 ####[facility] (DEFAULT)[address] [place] [address] 37959Uyucydmnur [Mass/Vol]0.65 mg/dLNormal0.60-1.30[facility] HospitalComment on above:Performed By: #### 79554172, 3890759, 1869850, 0358074667, 7942784753, 5699722, 1028474271, 0301380189 ####[facility] (DEFAULT)[address] [place] [address] 00760Iyjpmbg [Mass/Vol]106.0 mg/dIUamtcf18.0-118.0[facility] Comment on above:Performed By: #### 40385090, 3556746, 7629363, 5131483360, 5365604758, 7931187, 1745820308, 1710163372 ####[facility] (DEFAULT)[address] [place] [address] 08953Qdgjbkrpc [Moles/Vol]3.4 mmol/LLow3.6-5.1 [facility] HospitalComment on above:Performed By: #### 40716401, 9422712, 5439232, 6121710398, 3869177449, 1332651, 8227447937, 8200827665 ####[facility] (DEFAULT)[address] [place] [address] 13648Tlhvxji [Mass/Vol]8.7 g/dLHigh 6.5-8.1[facility] HospitalComment on above:Performed By: #### 59618132, 3300615, 3350822, 2176395965, 2363739279, 5309844, 5291730157, 4309498688 ####[facility] (DEFAULT)[address] [place] [address] 31705Hkyidx [Moles/Vol]135.0 mmol/AQef782.0-144.0[facility] HospitalComment on above:Performed By: #### 95099902, 7121424, 9239977, 6349104180, 6196918431, 7919815, 8012053326, 0225151713 ####[facility] (DEFAULT)[address] [place] [address] 00605Arhj nitrogen [Mass/Vol]32 mg/dLHigh8-26[facility] HospitalComment on above: Performed By: #### 58091033, 9444029, 0554284, 7299874375, 7703906103, 3830924, 2865396195, 8345815559 ####[facility] (DEFAULT)[address] [place] [address] 91898Xhmwzcy/Globulin [Mass ratio]1.5 {ratio}Normal1.4-2.6[facility] HospitalComment on above:Performed By: #### 59789057, 8549830, 3084524, 2178896279, 0563680584, 1886783, 7323122946, 3672747890 ####[facility] (DEFAULT)[address] [place] [address] 62610Srmdk gap [Moles/Vol]14.4 mmol/L Normal5.0-19.0[facility] HospitalComment on above:Performed By: #### 49986157, 3067112, 2012680, 1623854366, 6839690803, 0273726, 6998081865, 7880562309 ####[facility] (DEFAULT)[address] [place] [address] 16021Ehcwxvqu (S) [Mass/Vol]3.4 g/dLNormal1.5-4.3[facility] HospitalComment on above:Performed By: #### 08137365, 2524544, 5584976, 9243467505, 9012017525, 5358780, 3611090303, 0080852355 ####[facility] (DEFAULT)[address] [place] [address] 40781Tildfiyula005 mOsm/LInvalid Interpretation CodeMetrohealth Main Campus Medical CenterComment on above:Performed By: #### 84372182, 4289378, 2322159, 0921133576, 4329967922, 7545711, 0462558066, 4395430754 ####[facility] (DEFAULT)[address] [place] [address] 59474Xrlc nitrogen/Creatinine [Mass ratio]49.2 mg/mgHigh4.6-16.2[facility] HospitalComment on above:Performed By: #### 78976246, 0647174, 9603550, 1608480485, 2382082249, 5243706, 8365875315, 6982381073 ####[facility] (DEFAULT)[address] [place] [address] 94877HX Note - Physicianon [id number] Note - PhysicianPatient: MARTINA MELENDEZ Age: 34 years Sex: FEMALE : 1990 Associated Diagnoses: Acute vomiting Author: Alexis Coyne MD Basic Information History source: Patient. Arrival mode: Private vehicle. History limitation: None. History of Present Illness 34-year-old female presented to ER for evaluation of abdominal pain and vomiting. Patient stated that she had onset of vomiting on night Saturday morning. She stated that she also had pain at the epigastric area, ongoing pain. The patient stated that she still has some dry heaving. Not able to keep any solids down for the last several days. No diarrhea. No fevers or chills. Able to take some liquids. Stated that she has prescribed PPI, amitriptyline, ondansetron. She stated that amitriptyline seems to work best. She thinks that she may have forgotten the last 2 days of the amitriptyline. She stated that she has had symptoms like this, for at least a year or 2. She had cholecystectomy in May, with the thought process that the gallbladder was causing these recurrent symptoms. She stated that after the gallbladder was removed, she still had several more episodes. The last 1 was inMay. She stated that she had stopped alcohol use since of May. She still uses THC. She stated that she had steroid use this past week. Patient stated that she had seen gastroenterology technician a week or 2-week ago, on a follow-up, and notedthat in previous workup, her laboratory finding has been negative. Review of Systems Constitutional symptoms: No fever, no chills. Skin symptoms: No jaundice, no rash. ENMT symptoms: Negative except as documented in HPI. Respiratory symptoms: Negative except as documented in HPI. Cardiovascular symptoms: Chest pain. Gastrointestinal symptoms: Abdominal pain, epigastric, nausea, vomiting, no diarrhea, no constipation. Musculoskeletal symptoms: No back pain, Health Status Allergies: Allergic Reactions (Selected) No Known Medication Allergies. Past Medical/ Family/ Social History Medical history: No active or resolved past medical history items have been selected or recorded., Reviewed as documented in chart. Surgical history: No active procedure history items have been selected or recorded., Cholecystectomy. Family history: No family history items have been selected or recorded., Reviewed as documented in chart. Social history: Social & Psychosocial Habits Alcohol 05/11/2024 Alcohol Use: Current Frequency: 1-2 times per week Substance Use 05/11/2024 Substance use: Current Type: Marijuana Tobacco 05/11/2024 Smoking tobacco use: Current everyday tobacco Electronic Cigarette/Vaping 05/11/2024 Electronic Cigarette Use: Never , Stop alcohol use several months ago. Still using marijuana. Problem list: Active Problems (1) Tobacco user , per nurse's notes. Physical Examination Vital Signs Vital Signs 12/12/2024 21:35 EDT Temperature Temporal Artery 36.9 DegC Heart Rate Monitored 78 bpm Respiratory Rate 18 br/min Systolic Blood Pressure 121 mmHg HI Diastolic Blood Pressure 96 mmHg HI SpO2 100 % Oxygen Therapy Room air . General: On examination, 34-year-old female, awake, answering questions. Occasional dry heaving, without active vomiting, without signs of distress. Normal respiration. Skin: Warm, dry, intact. Head: Normocephalic, atraumatic. Neck: Supple, trachea midline. Eye: Extraocular movements are intact, normal conjunctiva. Ears, nose, mouth and throat: ENT evaluation is grossly unremarkable. There are no complaints of ENT symptoms. Hearing is intact and adequate. Nose is normal without rhinorrhea or congestion. No facial swelling or asymmetry. Lips are normal. Oral mucous membranes appear normal. . Cardiovascular: Regular rate and rhythm, No murmur. Respiratory: Lungs are clear to auscultation, respirations are non-labored. Gastrointestinal: Scaphoid abdomen, loose skin from light weight loss. Bowel sounds present in all 4 quadrant. Tender at epigastric area. Back: Normal range of motion. Musculoskeletal: Normal ROM, normal strength, no tenderness. Neurological: Alert and oriented to person, place, time, and situation, No focal neurological deficit observed. Psychiatric: Cooperative. Medical Decision Making Differential Diagnosis: Nausea, vomiting, abdominal pain, gastritis, pancreatitis, irritable bowel syndrome, dehydration, electrolyte abnormality, not diarrhea. Documents reviewed: Emergency department records, prior records. Orders Launch Orders Laboratory: UA w Micro, if Ind Standard (Order): Urine, Stat collect, 12/12/2024 21:47 EDT, Once, Stop date 12/12/2024 21:47 EDT, Nurse collect Lipase Level (Order): Blood, Stat collect, 12/12/2024 21:47 EDT, Lab Collect Magnesium Level (Order): Blood, Stat collect, 12/12/2024 21:47 EDT, Lab Collect Troponin I High Sensitivity (Order): Blood, Stat collect, 12/12/2024 21:47 EDT, Lab Collect CBC w/ Auto Diff (Or (more content not included)...[facility] Redon 88-53-8997Esdy CollectedYesInvalid Interpretation [facility] Comment on above:Performed By: #### [id number], [id number], [id number], [id number], [id number], [id number], [id number], [id number] ####[facility] (DEFAULT)[address] [place], [place] [address]Hheqvaly 13-59-9335Htcctu Level63.0 IU/LHigh 22.0-51.0[facility] Medical CenterComment on above:Performed By: #### [id number], [id number], [id number], [id number], [id number], [id number], [id number], [id number] ####[facility] (DEFAULT)[address] [place] [address] 35572Jhigzayftan 12-12-2024 Magnesium [Mass/Vol]2.31 mg/dLNormal1.80-2.50[facility] HospitalComment on above: Performed By: #### [id number], [id number], [id number], [id number], [id number], [id number], [id number], [id number] ####[facility] (DEFAULT)[address] [place] [address] 21372WzN HSon 08-09-2775Omuddith I High Sensitivity3.1 pg/mLNormal <=15.0[facility] HospitalComment on above:Performed By: #### [id number], [id number], [id number], [id number], [id number], [id number], [id number], [id number] ####[facility] (DEFAULT)[address] [place] [address] 86129NV Jdagv3oa 12-12-2024 UA Amorph.1+NormalSelect [facility] HospitalComment on above:Order Comment: Urinalysis Microscopic order added on by ERCOM Expert Rules system.Performed By: #### [id number], [id number] #### [facility] (DEFAULT) [address] [place] [address] [id number] Bacteria2+NormalSelect Medical [facility] HospitalComment on above:Order Comment: Urinalysis Microscopic order added on by ERCOM Expert Rules system. Performed By: #### [id number], [id number] #### [facility] (DEFAULT) [address] [place] [address] 38689PB Hyal Cast0-5NormalSelect [facility] HospitalComment on above: Order Comment: Urinalysis Microscopic order added on by ERCOM Expert Rules system.Performed By: #### [id number], [id number] #### [facility] (DEFAULT) [address] [place] [address] 49405GQ Mucous3+NormalMagruniversity hospitals geneva medical center HospitalComment on above:Order Comment: Urinalysis Microscopic order added on by Discern Expert Rules system. Performed By: #### [id number], [id number] #### [facility] (DEFAULT) [address] [place] [address] [id number] RBCNone SeenNoAultman Alliance Community Hospital HospitalComment on above: Order Comment: Urinalysis Microscopic order added on by ERCOM Expert Rules system.Performed By: #### [id number], [id number] #### [facility] (DEFAULT) [address] [place] [address] [id number] Squam EpiModerateNoAultman Alliance Community Hospital HospitalComment on above:Order Comment: Urinalysis Microscopic order added on by ERCOM Expert Rules system.Performed By: #### [id number], [id number] #### [facility] (DEFAULT) [address] [place] [address] [id number] WBC3-5NormNorwalk Memorial Hospital HospitalComment on above:Order Comment: Urinalysis Microscopic order added on by ERCOM Expert Rules system. Performed By: #### [id number], [id number] #### [facility] (DEFAULT) [address] [place] [address] [id number] w Micro, if Ind Standardon 54-05-8973Mpwoqtpqsb UA NormalSelect [facility] HospitalComment on above:Performed By: #### [id number], [id number] #### [facility] (DEFAULT) [address] [place] [address] 80541Vlbpg (U)YellowNoAultman Alliance Community Hospital HospitalComment on above: Performed By: #### [id number], [id number] #### [facility] (DEFAULT) [address] [place] [address] 23489Dwxujam (U) [Mass/Vol]NegativermNorwalk Memorial Hospital Hospital Comment on above:Performed By: #### [id number], [id number] #### [facility] (DEFAULT) [address] [place] [address] 40583Jxjoafi Ql (U)NegativeCleveland Clinic Medina Hospital HospitalComment on above:Performed By: #### [id number], [id number] #### [facility] (DEFAULT) [address] [place] [address] 39253Qnnpz?IndicatedNormalMagruder HospitalComment on above: Result Comment: Result created by rule GL_MAGR_ADD_UA_MICROPerformed By: #### [id number], [id number] #### [facility] (DEFAULT) [address] [place] [address] [id number] BilirubinMODERATEAbnormalMagruder HospitalComment on above:Performed By: #### [id number], [id number] #### [facility] (DEFAULT) [address] [place] [address] 07582XM BloodNegativeNormalNEGATIVEMagruder HospitalComment on above:Performed By: #### [id number], [id number] #### [facility] (DEFAULT) [address] [place] [address] [phone] ClaritySL CLOUDYAbnormalCLEARMagruder HospitalComment on above:Performed By: #### [id number], [id number] #### [facility] (DEFAULT) [address] [place] [address] [id number] Leuk EstNegativeNormalNEGATIVEMagruder HospitalComment on above:Performed By: #### [id number], [id number] #### [facility] (DEFAULT) [address] [place] [address] [id number] NitriteNegativeNormalNEGATIVEMagruder HospitalComment on above:Performed By: #### [id number], [id number] #### [facility] (DEFAULT) [address] [place] [address] 65690DX pH6.4Frldvh0-6Igdapuij HospitalComment on above: Performed By: #### [id number], [id number] #### [facility] (DEFAULT) [address] [place] [address] 90079JE Uehfzok170OqgjcfynJYVTNEFIDvdvhhyr HospitalComment on above:Performed By: #### [id number], [id number] #### [facility] (DEFAULT) [address] [place] [address] [id number] Spec Grav>=1.560Noaimi0.001-1.035[facility] Comment on above:Performed By: #### [id number], [id number] #### [facility] (DEFAULT) [address] [place] [address] [id number] Urobilinogen0.2 mg/dLNormal0.2-1.0[facility] Comment on above:Performed By: #### [id number], [id number] #### [facility] (DEFAULT) [address] [place] [address] 28883Yjzie SourceClean CatchACMC Healthcare SystemComment on above:Performed By: #### [id number], [id number] #### [facility] (DEFAULT) [address] [place] [address] 84549Kvuo Screen,Urineon 20-80-7515Twmvdkyucuy Screen,Urine NegativeNormalNegativeThe [facility] Physician GroupComment on above:Performed By: #### DIDIER, URDS #### [place] [address] USABarbiturate Screen,UrineNegativeNormalNegativeThe [facility] Physician GroupComment on above:Performed By: #### DIDIER, URLUL #### [place] [address] USABenzodiazepines Screen,UrineNegativeNormalNegativeThe [facility] Physician GroupComment on above:Performed By: #### DIDIER, URDS #### [place] [address] USACannabinoid Screen,UrinePositiveNormalNegativeThe [facility] Physician GroupComment on above:Result Comment: These are unconfirmed results and should not be used for legal purposes. Drug Cut-Off Concentration: AMPH 1000 ng/mL ELENA 200 ng/mL PEPE 200 ng/mL COCM 300 ng/mL OP 300 ng/mL PCP 25 ng/mL THC 20 ng/mL PERFORMED BY: [place] [address] PATHOLOGIST CRITICAL CARE SPECIALIST BAN S DEIDRA M.D.Performed By: #### UHCG, URDS #### [facility] [address] [place] [address] USACocaine Screen,UrineNegativeNormalNegativeBeacham Memorial HospitalComment on above:Performed By: #### UHCG, URDS #### [place] [address] USAOpiate Screen,UrineNegativeNormalNegativeOrlando Health [facility] Physician [facility] HospitalComment on above:Performed By: #### UHCG, URDS #### [place] [address] USAPhencyclidine Screen,UrineNegativeNormalNegativeOrlando [facility] Physician [facility] HospitalComment on above:Performed By: #### UHCG, URDS #### [place] [address] USAHCG,Urineon 72-43-4334Ursr HCG ( test) Ql (U) NegativeNoProMedica Memorial HospitalComment on above:Result Comment: PERFORMED BY: [place] [address] PATHOLOGIST CRITICAL CARE SPECIALIST BAN GAY M.D.Performed By: #### UHCG, URDS #### [place] [address] USAPathology Request for Lab Corpon 68-90-2276Jdxaltdlx Request for Lab CorpLakes Medical CenterComment on above:Order Comment: GI SPECIMENResult Comment: See report. Scanned copy available in EMR. PERFORMED BY: [place] [address] PATHOLOGIST CRITICAL CARE SPECIALIST BAN GAY M.D.Performed By: #### PATH TO [facility] #### [facility] [address] [place] [address] USAAlanine aminotransferase [Enzymatic activity/volume] in Serum or PlasmaOrdered By: Imad Asaad on 60-71-2163YGX [Catalytic activity/Vol] 14 U/LNormal7-52[facility] HospitalComment on above:Performed By: #### HEPATIC, LIPASE #### [facility] [address] [place] [address] USAAlbumin [Mass/volume] in Serum or Plasma by Bromocresol green (BCG) dye binding methoOrdered By: Imad Asaad on 28-74-3579Jdffhxc BCG dye [Mass/Vol]4.6 g/dL3.5-5.7FMercy Health Tiffin HospitalAlkaline phosphatase [Enzymatic activity/volume] in Serum or PlasmaOrdered By: Imad Asaad on 60-08-6128IBK [Catalytic activity/Vol]36 U/TXgxoep48-429XlcbwobttMarietta Memorial HospitalComment on above:Performed By: #### HEPATIC, LIPASE #### [place] [address] USAAspartate aminotransferase [Enzymatic activity/volume] in Serum or PlasmaOrdered By: Imad Asaad on 15-22-1786PLB [Catalytic activity/Vol] 15 U/ZWhlngk97-62CvrtcdvazMarietta Memorial HospitalComment on above:Performed By: #### HEPATIC, LIPASE #### [place] [address] USABasophils [#/volume] in Blood by Automated countOrdered By: Imad Asaad on 56-39-3243Pddfnbwfc (Bld) [#/Vol]0.0 10*3/uLNormal0.0-0.2 [facility] HospitalComment on above:Result Comment: PERFORMED BY: [place] [address] PATHOLOGIST CRITICAL CARE SPECIALIST BAN GAY M.D.Performed By: #### CBC #### [place] [address] USABasophils/100 leukocytes in Blood by Automated count Ordered By: Imad Asaad on 17-02-7490Bmnerlsep/100 WBC (Bld)0.7 %Normal.[facility] HospitalComment on above:Performed By: #### CBC #### [place] [address] USABilirubin.direct [Mass/volume] in Serum or PlasmaOrdered By: Imad Asaad on 72-22-4123Pzvaqfscv.direct [Mass/Vol]0.00 mg/dLLow0.03-0.18 [facility] HospitalComment on above:If the DBIL is less than 0.1, IBIL is not able to becalculated.Bilirubin.total [Mass/volume] in Serum or PlasmaOrdered By: Imad Asaad on 17-19-0817Ayhufexql [Mass/Vol]0.3 mg/dLNormal 0.3-1.0[facility] HospitalComment on above:Performed By: #### HEPATIC, LIPASE #### [place] [address] USAComplete Blood Count Auto Diffon 34-01-8427Swuy Corpuscular HGB Conc34.3 g/tIFgyhye78.0-35.0[facility] Physician GroupComment on above:Performed By: #### CBC #### [place] [address] USANRBC%0.1 /100{WBC}Normal0-0.5[facility] Comment on above:Performed By: #### CBC #### [place] [address] USAWhite Blood Count6.6 [CFU]/mLNormal3.8-11.6[facility] Physician GroupComment on above:Performed By: #### CBC #### [place] [address] USAEosinophils [#/volume] in Blood by Automated countOrdered By: Imad Asaad on 85-15-6476Jvifqyodwya (Bld) [#/Vol]0.4 10*3/uLNormal0.0-0.45 [facility] HospitalComment on above:Performed By: #### CBC #### [place] [address] USAEosinophils/100 leukocytes in Blood by Automated count Ordered By: Imad Asaad on 69-61-5750Kqibzjnkozx/100 WBC (Bld)6.6 %Normal. [facility] HospitalComment on above:Performed By: #### CBC #### [place] [address] USAErythrocyte distribution width [Ratio] by Automated count Ordered By: Imad Asaad on 64-55-6523Xopmhajcnba distribution width (RBC) [Ratio] 13.3 %Saumxo59.9-15.3FMercy Health Tiffin HospitalComment on above:Performed By: #### CBC #### [place] [address] USAErythrocytes [#/volume] in Blood by Automated countOrdered By: Imad Asaad on 04-07-4203AUJ (Bld) [#/Vol]4.23 10*6/uLNormal3.60-5.00 [facility] HospitalComment on above:Performed By: #### CBC #### [place] [address] USAHematocrit [Volume Fraction] of Blood by Automated count Ordered By: Imad Asaad on 74-29-3416Pzesjkyybj (Bld) [Volume fraction]38.2 % Qdbrgg97.0-46.4FMercy Health Tiffin HospitalComment on above:Performed By: #### CBC #### [place] [address] USAHemoglobin [Mass/volume] in BloodOrdered By: Imad Asaad on 27-27-7631Axyxshfety (Bld) [Mass/Vol]13.1 g/iLPvretl47.8-15.4FMercy Health Tiffin HospitalComment on above:Performed By: #### CBC #### [place] [address] USAHepatic Panelon 46-88-2186Qegpqpn [Mass/Vol]4.6 g/dLNormal 3.5-5.7The [facility] Physician GroupComment on above:Performed By: #### HEPATIC, LIPASE #### [place] [address] USABilirubin,Indirect0.3 mg/dLNormalThe [facility] Physician GroupComment on above:Performed By: #### HEPATIC, LIPASE #### [place] [id number] USABilirubin.indirect [Mass/Vol]0.00 mg/dLLow0.03-0.18The [facility] Physician GroupComment on above:Result Comment: If the DBIL is less than 0.1, IBIL is not able to be calculated.Performed By: #### HEPATIC, LIPASE #### [place] [id number] USALeukocytes [#/volume] corrected for nucleated erythrocytes in Blood by Automated counOrdered By: Imad Asaad on 55-31-3821DJC corrected for nucl RBC Auto (Bld) [#/Vol]6.6 10*3/uL3.8-11.6FMercy Health Tiffin Hospital Leukocytes [#/volume] in Blood by Automated countOrdered By: Imad Asaad on 21-42-9360AGT (Bld) [#/Vol]6.6 10*3/uLNormal3.8-11.6FMercy Health Tiffin HospitalComment on above:Performed By: #### CBC #### [place] [id number] USALipase [Enzymatic activity/volume] in Serum or Plasma Ordered By: Imad Asaad on 07-91-8917Hyxcfs [Catalytic activity/Vol]57.0 U/L Qijktd72.0-82.0[facility] HospitalComment on above:Result Comment: PERFORMED BY: [place] [address] PATHOLOGIST CRITICAL CARE SPECIALIST BAN GAY M.D.Performed By: #### HEPATIC, LIPASE #### [place] [id number] USALymphocytes [#/volume] in Blood by Automated countOrdered By: Imad Asaad on 63-13-0223Jmuoggzujiq (Bld) [#/Vol]2.6 10*3/uLNormal1.00-4.8 [facility] HospitalComment on above:Performed By: #### CBC #### [place] [id number] USALymphocytes/100 leukocytes in Blood by Automated count Ordered By: Imad Asaad on 26-65-0378Wkwbqlauqoj/100 WBC (Bld)38.9 %Normal. [facility] HospitalComment on above:Performed By: #### CBC #### [facility] [address] [Entitic mass] by Automated countOrdered By: Imad Asaad on 50-36-0660MPW (RBC) [Entitic mass]31.0 dqZrjzys65.7-34.3FMercy Health Tiffin HospitalComment on above:Performed By: #### CBC #### [address] Auto (RBC) [Mass/Vol]Ordered By: Imad Asaad on 81-79-0214SPFL (RBC) [Mass/Vol]34.3 g/dL32.0-35.0[facility] CenterV [Entitic volume] by Automated countOrdered By: Imad Asaad on 41-91-9576GVR (RBC) [Entitic vol]90.4 yQSdbotj20-460BdpjntzloMarietta Memorial HospitalComment on above:Performed By: #### CBC #### [place] [address] USAMonocytes [#/volume] in Blood by Automated countOrdered By: Imad Asaad on 01-58-0790Wfbrghzlt (Bld) [#/Vol]0.3 10*3/uLNormal0.0-0.8 [facility] HospitalComment on above:Performed By: #### CBC #### [facility] [address] [place] [address] USAMonocytes/100 leukocytes in Blood by Automated count Ordered By: Imad Asaad on 20-16-1713Drhhuyqdd/100 WBC (Bld)4.7 %Normal.[facility] HospitalComment on above:Performed By: #### CBC #### [place] [address] USANeutrophils [#/volume] in Blood by Automated countOrdered By: Imad Asaad on 87-39-3029Cicjcgoevhn (Bld) [#/Vol]3.2 10*3/uLNormal1.8-7.7 [facility] HospitalComment on above:Performed By: #### CBC #### [facility] [address] [place] [address] USANeutrophils/100 leukocytes in Blood by Automated count Ordered By: Imad Asaad on 19-74-6581Jblrqbmafar/100 WBC (Bld)49.1 %Normal. [facility] HospitalComment on above:Performed By: #### CBC #### [place] [address] USANucleated erythrocytes [Presence] in Blood by Automated countOrdered By: Imad Asaad on 61-33-1735Fjoqtvgqz RBC Auto Ql (Bld)0.1 /100{WBC}0-0.5FMercy Health Tiffin HospitalPlatelet mean volume [Entitic volume] in Blood by Automated countOrdered By: Imad Asaad on 31-61-7452Gpfppekd mean volume (Bld) [Entitic vol]7.3 fLNormal6.3-10.7FMercy Health Tiffin HospitalComment on above:Performed By: #### CBC #### [place] [address] USAPlatelets [#/volume] in Blood by Automated countOrdered By: Imad Asaad on 96-00-3702Fijiumhun (Bld) [#/Vol]228 10*3/mLQyidgt189-598 [facility] HospitalComment on above:Performed By: #### CBC #### [place] [address] USAProtein [Mass/volume] in Serum or PlasmaOrdered By: Imad Asaad on 97-46-7873Ulhzzoz [Mass/Vol]6.9 g/dLNormal6.4-8.9[facility] HospitalComment on above:Performed By: #### HEPATIC, LIPASE #### [place] [address] USASerum globulin measurement by calculation (mass/volume) Ordered By: Imad Asaad on 61-06-4834Fvqjuovw (S) [Mass/Vol]2.3 g/dLNormal [facility] HospitalComment on above:Performed By: #### HEPATIC, LIPASE #### [facility] [address] [place] [address] USASerum or plasma albumin/globulin mass ratioOrdered By: Robert Koch on 46-53-6596Bmnsaee/Globulin [Mass ratio]2.0 {ratio}NormalMarietta Memorial HospitalComment on above:Performed By: #### HEPATIC, LIPASE #### [facility] [address] [place] [address] USASerum or plasma non-glucuronidated bilirubin measurement (mass/volume)Ordered By: Robert Koch on 82-07-6075Ogyktjbkc.indirect [Mass/Vol] 0.3 mg/dLMarietta Memorial HospitalUS abdomen limitedon 41-61-6284AK abdomen limitedKETTERING HEALTH [facility] [place] [address] [place] [address] Ultrasound Report Signed Patient: Martina Melendez MR#: [id number] 58 : 1990 Acct:[id number] Age/Sex: 34 / F ADM Date: 11/18/24 Loc: Room: Type: [facility] Attending Dr: Robert Koch MD Ordering Provider: Robert Koch MD Date of Service: 11/18/24 US/US abdomen limited: R11.10 - Vomiting, unspecified Copies to: Robert Koch MD LIMITED ABDOMINAL ULTRASOUND: CLINICAL HISTORY: Vomiting weight loss COMPARISON: None TECHNIQUE: Grayscale and color Doppler images of the right upper quadrant organs were obtained. FINDINGS: Pancreas: Visualized portions appear unremarkable. Liver: Unremarkable. Gallbladder: Movement. CBD: 3.3 mm RT KIDNEY: No Hydronephrosis US/US abdomen limited IMPRESSION: NO ACUTE PROCESS. . Impression dictated by: Alvin Akins Jr., D.O. 11/18/2024 10:23 AM Dictation Location: [place] [address] Tech: Orquidea Weinberg Transcribed By: CANDIDA 11/18/24 1023 Dictated By: Alvin Akins Jr, DO 11/18/24 1023 Signed By: 11/18/24 [facility] Physician [facility] WITH AUTO DIFFERENTIALon 47-55-2332RTMDIHQRU ABSOLUTE COUNT (10*3/UL) BY AUTOMATED COUNT0.0 10*3/uLNormal [facility] HospitalComment on above:Performed By: #### 3040-3, CBCA, CMP #### [facility] ([id number]) [address] [place] [address] [id number] RELATIVE PERCENT BY AUTOMATED COUNT0.3 %Normal [facility] HospitalComment on above:Performed By: #### 3040-3, CBCA, CMP #### [facility] ([id number]) [address] [place] [address] [id number] DIFFERENTIAL TYPEAUTOMATED DIFFERENTIALNoWooster Community HospitalComment on above:Performed By: #### 3040-3, CBCA, CMP #### [facility] ([id number]) [address] [place] [address] [id number] (Bld) [#/Vol]0.3 10*3/uLNormalProMedica Encino Hospital Medical CenterComment on above:Performed By: #### 3040-3, CBCA, CMP #### [facility] ([id number]) [address] [place] [address] [id number] RELATIVE PERCENT BY AUTOMATED COUNT3.3 %Normal [facility] HospitalComment on above:Performed By: #### 3040-3, CBCA, CMP #### [facility] ([id number]) [address] [place] [address] 79387Ngpgnquxvge distribution width (RBC) [Ratio]14.6 %Hshzzu49.5-15 [facility] HospitalComment on above:Performed By: #### 3040-3, CBCA, CMP #### [facility] ([id number]) [address] [place] [address] 81949Rugafcbuxg (Bld) [Volume fraction]41.7 %Fyafwu21-68IygPjejdiMercer County Community HospitalComment on above:Performed By: #### 3040-3, CBCA, CMP #### [facility] ([id number]) [address] [place] [address] 51687Sbvfuibjdk (Bld) [Mass/Vol]14.3 g/sABlzxis65.7-15.5Pro[facility] Medical CenterComment on above:Performed By: #### 3040-3, CBCA, CMP #### [facility] ([id number]) [address] [place] [address] 97399HYKKTDVJLFK ABSOLUTE COUNT (10*3/UL) BY AUTOMATED COUNT1.6 10*3/uLNoalMercer County Community HospitalComment on above:Performed By: #### 3040- 3, CBCA, CMP #### [facility] ([id number]) [address] [place] [address] 64150ZDKABQLFVFJ RELATIVE PERCENT BY AUTOMATED COUNT16.6 %Normal ProMedicRonald Reagan UCLA Medical CenterComment on above:Performed By: #### 3040-3, CBCA, CMP #### [facility] ([id number]) [address] [place] [address] 07649VQW (RBC) [Entitic mass]30.0 ssRgyiqm73-14EnxMgplceMercer County Community HospitalComment on above:Performed By: #### 3040-3, CBCA, CMP #### [facility] ([id number]) [address] [place] [address] 51662YSGU (RBC) [Mass/Vol]34.4 g/nPOqsbqs72-95PgoJmmxar [facility] HospitalComment on above:Performed By: #### 3040-3, CBCA, CMP #### [facility] ([id number]) [address] [place], [place] [address]YQG (RBC) [Entitic vol]87 oXHalrdy69-934AloQjkspt [facility] HospitalComment on above:Performed By: #### 3040-3, CBCA, CMP #### [facility] ([id number]) [address] [place] [address] 39009NKUUWUGTR ABSOLUTE COUNT (10*3/UL) BY AUTOMATED COUNT0.2 10*3/uLNormalMercer County Community HospitalComment on above:Performed By: #### 3040- 3, CBCA, CMP #### [facility] ([id number]) [address] [place] [address] 78672MKMDMZTCM RELATIVE PERCENT BY AUTOMATED COUNT2.5 %Normal [facility] HospitalComascension [facility] on above:Performed By: #### 3040-3, CBCA, CMP #### [facility] ([id number]) [address] [place] [address] 47730YUTJPLELHYE ABSOLUTE COUNT BY AUTOMATED COUNT7.4 10*3/uLNormal [facility] HospitalComascension [facility] on above:Performed By: #### 3040-3, CBCA, CMP #### [facility] ([id number]) [address] [place] [address] 42568MIBQARJKAFG RELATIVE PERCENT BY AUTOMATED COUNT77.3 %Normal [facility] HospitalComascension [facility] on above:Performed By: #### 3040-3, CBCA, CMP #### [facility] ([id number]) [address] [place] [address] 96877Bbkokytu mean volume (Bld) [Entitic vol]7.1 fLNormal7-12 [facility] HospitalComment on above:Performed By: #### 3040-3, CBCA, CMP #### [facility] ([id number]) [address] [place] [address] 27447Rjgyorwth (Bld) [#/Vol]299 10*3/wELypeph341-104GgcKbczss [facility] HospitalComment on above:Performed By: #### 3040-3, CBCA, CMP #### [facility] ([id number]) [address] [place] [address] 40118YAS COUNT4.77 X10E12/LNormal3.8-5.2PMercy Health [facility] Hospital Comment on above:Performed By: #### 3040-3, CBCA, CMP #### [facility] ([id number]) [address] [place] [address] 66200UHC (Bld) [#/Vol]9.6 10*3/uLNormal4-11ProMemorial Hermann Katy HospitalComment on above:Performed By: #### 3040-3, CBCA, CMP #### [facility] ([id number]) [address] [place] [address] 54265OLGISDSSNDOLZ METABOLIC PANELon 24-60-4201Grmdlno [Mass/Vol]4.7 g/dLNormal3.2-5.3PMercy Health Kings Mills HospitalComment on above:Performed By: #### 3040-3, CBCA, CMP #### [facility] ([id number]) [address] [place] [address] 59579RHL [Catalytic activity/Vol]39 U/AUsbguz57-323MjlQrfuecMemorial Hermann Katy HospitalComment on above:Performed By: #### 3040-3, CBCA, CMP #### [facility] ([id number]) [address] [place] [address] 20000WUV [Catalytic activity/Vol]21 U/LNormal<=31PMercy Health Kings Mills HospitalComment on above:Performed By: #### 3040-3, CBCA, CMP #### [facility] ([id number]) [address] [place] [address] 90388Ywdav gap [Moles/Vol]10 mmol/LNormal5-15ProMemorial Hermann Katy HospitalComment on above:Performed By: #### 3040-3, CBCA, CMP #### [facility] ([id number]) [address] [place] [address], [place] [address]RCX [Catalytic activity/Vol]24 U/LNormal<=41ProMemorial Hermann Katy HospitalComment on above:Performed By: #### 3040-3, CBCA, CMP #### [facility] ([id number]) [address] [place] [address], [place] [address]Knlrpcwlv [Mass/Vol]0.7 mg/dLNormal0.3-1.2PMercy Health Kings Mills HospitalComment on above:Performed By: #### 3040-3, CBCA, CMP #### [facility] ([id number]) [address] [place] [address], [place] [address]Kezyfsd [Mass/Vol]9.5 mg/dLNormal8.5-10.5PMercy Health Kings Mills HospitalComment on above:Performed By: #### 3040-3, CBCA, CMP #### [facility] ([id number]) [address] [place] [address], [place] [address]Rrlxbhvn [Moles/Vol]106 mmol/OPzzgpq81-359ZqmElmusfMemorial Hermann Katy HospitalComment on above:Performed By: #### 3040-3, CBCA, CMP #### [facility] ([id number]) [address] [place] [address], [place] [address]MB4 [Moles/Vol]24 mmol/HWrelmf20-13OlyHkcdaoMercy Health Kings Mills Hospital Comment on above:Performed By: #### 3040-3, CBCA, CMP #### [facility] ([id number]) [address] [place] [address], [place] [address]Miuqqtevrb [Mass/Vol]0.64 mg/dLNormal0.40-1.00ProMemorial Hermann Katy HospitalComment on above:Result Comment: METHOD TRACEABLE TO IDMS STANDARD Performed By: #### 3040-3, CBCA, CMP #### [facility] ([id number]) [address] [place] [address] 81173XBQN (CKD-EPI) NON-RACE DEPENDENT>^90Normal>=60ProMemorial Hermann Katy HospitalComment on above:Result Comment: eGFR not reported due to non- numeric value for Creatinine. Reported eGFR is based on the CKD-EPI 2020 equation that does not use a race coefficient.Performed By: #### 3040-3, CBCMelvi, CMP #### [facility] ([id number]) [address] [place] [address] 65228Cqeeuut [Mass/Vol]120 mg/bBQxfm87-69XayNfsbkgMercer County Community Hospital Comment on above:Performed By: #### 3040-3, CBCMelvi, CMP #### [facility] ([id number]) [address] [place] [address] 48419Yhxhibzjp [Moles/Vol]3.5 mmol/LNormal3.5-5.0ProMemorial Hermann Katy HospitalComment on above:Performed By: #### 3040-3, CBCMelvi, CMP #### [facility] ([id number]) [address] [place] [address] 13466Stgwwnj [Mass/Vol]7.8 g/dLNormal6.0-8.0ProMemorial Hermann Katy HospitalComment on above:Performed By: #### 3040-3, CBCA, CMP #### [facility] ([id number]) [address] [place] [address] 65243Ogaopb [Moles/Vol]140 mmol/WSaamxy022-294DxwFvkfne [facility] HospitalComment on above:Performed By: #### 3040-3, CBCA, CMP #### [facility] ([id number]) [address] [place] [address] 39812Acnj nitrogen [Mass/Vol]17 mg/dLNormal5-23ProMemorial Hermann Katy HospitalComment on above:Performed By: #### 3040-3, CBCA, CMP #### [facility] ([id number]) [address] [place] [address] 58898TT ABDOMEN AND PELVIS W CONTon 60-54-0997HH ABDOMEN AND PELVIS W CONTCT ABDOMEN AND PELVIS W CONT CT ABDOMEN AND PELVIS W CONT CLINICAL HISTORY:abd pain COMPARISON: None. TECHNIQUE: CT abdomen and pelvis was performed utilizing the standard protocol following the uneventful administration of 100 cc Omnipaque 300 nonionic intravenous contrast. Coronal and sagittal reformatted images were generated and reviewed. Automated exposure control was utilized. FINDINGS: No acute findings lower thorax. Unremarkable liver, no bladder, spleen, adrenal glands, pancreas, kidneys. No acute appearing occlusion of the major visceral vasculature. Unremarkable uterus. No adnexal mass. Gbso-wy-siuaqxzj colonic stool burden. Normal appendix [series 601 image #46, annotated]. No free fluid or fluid collections. No aggressive osseous lesions. Degenerative changes lumbar spine most noted at L4-5. IMPRESSION: 1. No acute process within the abdomen or pelvis. Diyc-ge-onaraexf colonic stool burden. All CT scans at this facility use dose modulation, iterative reconstruction, and/or weight based dosing when appropriate to reduce radiation dose to as low as reasonably achievable. Finalized by Mio Copeland MD on 09/23/2024 12:19 PMNormalProMemorial Hermann Katy HospitalLIPASEon 24-39-0718Rkaooh [Catalytic activity/Vol]33 U/QHldear99-80 [facility] Medical CenterComment on above:Performed By: #### 3040-3, CBCA, CMP #### [facility] ([id number]) [address] [place] [address] 32463QECWAXKWLpy 55-70-3605Enkgmannu [Mass/Vol]2.2 mg/dLNormal 1.8-2.6Mer[facility] HospitalComment on above:Performed By: #### 3040-3, CBCA, CMP #### [facility] ([id number]) [address] [place], [place] [address]PZNV NURSING URINE MACROSCOPIC UAon 82-22-9342WCNPIDGES YNES NegativeNormalNegativeMercer County Community HospitalComment on above:Performed By: #### 3040-3, CBCA, CMP #### [facility] ([id number]) [address] [place] [address] 81760UEBFL/HGB NURNegativeNormalNegativeMercer County Community Hospital Comment on above:Performed By: #### 3040-3, CBCA, CMP #### [facility] ([id number]) [address] [place] [address] 24802XUOQPUN NURNegativeNormalNegSt. Elizabeth Hospital Comment on above:Performed By: #### 3040-3, CBCA, CMP #### [facility] ([id number]) [address] [place] [address] 24298ULUMGIT NURTraceAbnormalNegSt. Elizabeth Hospital Comment on above:Performed By: #### 3040-3, CBCA, CMP #### [facility] ([id number]) [address] [place] [address], [place] [address]PKIBFGQPM ESTERASE NURNegativeNormalNegSt. Elizabeth HospitalComment on above:Performed By: #### 3040-3, CBCA, CMP #### [facility] ([id number]) [address] [place] [address] [place] [address]INERUQM NURNegativeNormalNegativeMercer County Community Hospital Comment on above:Performed By: #### 3040-3, CBCA, CMP #### [facility] ([id number]) [address] [place] [address] 84236BO NUR8.8Znooyd2.0, 6.0, 6.5, 7.0, 7.5, 8.0, 8.5, 5.5ProMedica Myton HospitalComment on above:Performed By: #### 3040-3, CBCA, CMP #### [facility] ([id number]) [address] [place] [address] 38103QCNVJKR IDX276 mg/dLAbnormalNegSt. Elizabeth Hospital Comment on above:Performed By: #### 3040-3, CBCA, CMP #### [facility] ([id number]) [address] [place] [address] [place] [address]WCNWIPYO GRAVITY NUR1.476Tkvdqf3.010, 1.015, 1.020, 1.025 [facility] Community HospitalComment on above:Performed By: #### 3040-3, CBCA, CMP #### [facility] ([id number]) [address] [place] [address] 76539WMVOKWHWGJOG NUR0.2 E.U./dLNormal0.2 E.U./dL, 1.0 E.U./dL [facility] HospitalComment on above:Performed By: #### 3040-3, CBCA, CMP #### [facility] ([id number]) [address] [place] [address] 29697YOLF , URINE (NUCG)on 57-70-2138Ytca HCG ( test) Ql (U)NegativeNormalNegSt. Elizabeth HospitalComment on above: Performed By: #### 3040-3, CBCA, CMP #### [facility] ([id number]) [address] [place] [address] 16787YBAOS PREGNANCYon 09-71-5616BVUYV PREGNANCYNegativeNormal NegativeMercer County Community HospitalComment on above:Performed By: #### 3040-3, CBCA, CMP #### [facility] ([id number]) [address] [place] [address] 95524EYG ( test) Ql (U)on 11-14-2596Xxce HCG ( test) Ql (U)NegativeNormalNEGProMedica Encino Hospital Medical CenterComment on above: Performed By: #### 3040-3, CBCA, CMP #### [facility] ([id number]) [address] [place] [address], FIRST FLO[address] [place], [place] [address]Pnjqqvvx Pathologyon 70-38-8284Siflznss PathologyNormal [facility] HospitalComment on above:Result Comment: [facility] [address] [place] [address] Surgical Pathology Consultation Patient Name:MARTINA MELENDEZ:1990 (Age: 33)Gender:FTaken:06/23/2024Reported:06/26/2024Physician(s):Ludin Mckeon D.O. ([phone])Copy To: Rec. #:[id number]: #[id number] Final Pathologic Diagnosis Gallbladder, cholecystectomy: Chronic cholecystitis with mild cholesterolosis. Report Electronically Signed Out ssi/06/26/2024Suzakia Espinoza M.D. [facility] [address], License number: [id number]. Clinical History Cholelithiasis, chronic cholecystitis Gross Description Received in formalin labeled AL, GB is an intact gallbladder that measures, 8.0 x 3.1 x 2.3 cmwith a cystic duct of 2.0 cm. No lymph node is identified adjacent to the cystic duct. The serosal surface is green with an area of green granular soft tissue consistent with hepatic bed. The gallbladder is opened and filled with green viscous bile. No calculus is identified within the lumen. The mucosa is green and velvety with yellow striations. The gallbladder wall is 0.2 cm in thickness. Processing Lead cross-sections are submitted within a single cassette. (1, ss, V33-1914,m2) DM. Container labeled GB . Per epic, gallbladder . dm/06/24/2024WAK Specimen(s) Received Gallbladder Fee Codes(s): 1; 05081JWFPTBPB BLOOD COUNTon 05-30-1257Pmxxuufkfdy distribution width (RBC) [Ratio]13.1 %Nvnree66.5-15.0[facility] HospitalComment on above:Performed By: #### 3040-3, CBC, CMP #### [facility] ([id number]) [address], [facility] [address] [place], [place] [address]Qszmielzid (Bld) [Volume fraction]40.5 %Enfjcu10-41YyoFgrvnvMemorial Hermann Katy HospitalComment on above:Performed By: #### 3040-3, CBC, CMP #### [facility] ([id number]) [address], [facility] [address] [place], [place] [address]Mjmioduxks (Bld) [Mass/Vol]13.3 g/wXUsrajr62.7-15.5PMercy Health Kings Mills HospitalComment on above:Performed By: #### 3040-3, CBC, CMP #### [facility] ([id number]) [address], [address] [place], [place] [address]DVQ (RBC) [Entitic mass]28.7 imGodnla42-63WyfWomgdvMercer County Community HospitalComment on above:Performed By: #### 3040-3, CBC, CMP #### [facility] ([id number]) [address], [address] [place], [place] [address]IGJQ (RBC) [Mass/Vol]33.0 g/yFTyqpwg18-70ChwHiocfyMemorial Hermann Katy HospitalComment on above:Performed By: #### 3040-3, CBC, CMP #### [facility] ([id number]) [address], [address] [place] [address]RHH (RBC) [Entitic vol]87 gBJfibgo21-576QqfJoxarr [facility] HospitalComment on above:Performed By: #### 3040-3, CBC, CMP #### [facility] ([id number]) [address], [address] [place] [address]Ygeoocax mean volume (Bld) [Entitic vol]7.1 fLNormal7-12 ProMRancho Los Amigos National Rehabilitation CenterComment on above:Performed By: #### 3040-3, CBC, CMP #### [facility] ([id number]) [address], [facility] [address] [place] [address]Mgwjijdof (Bld) [#/Vol]283 10*3/oWCruoop559-249RrsVtnqit [facility] HospitalComment on above:Performed By: #### 3040-3, CBC, CMP #### [facility] ([id number]) [address], [facility] [address] [place] [address]FIB COUNT4.64 X10E12/LNormal3.80-5.20[facility] Comment on above:Performed By: #### 3040-3, CBC, CMP #### [facility] ([id number]) [address], [address] [place], [place] [address]EOZ (Bld) [#/Vol]6.0 10*3/uLNormal4.0-11.0[facility] HospitalComment on above:Performed By: #### 3040-3, CBC, CMP #### [facility] ([id number]) [address], [facility] [address] [place] [address]KCWVSCVONUARJ METABOLIC PANELon 92-63-2959Azvvdaw [Mass/Vol]4.7 g/dLNormal3.2-5.3PMercy Health Kings Mills HospitalComment on above:Performed By: #### 3040-3, CBC, CMP #### [facility] ([id number]) [address], [facility] [address] [place] [address]KRC [Catalytic activity/Vol]34 U/FDut67-157HmyOuuhxtMemorial Hermann Katy HospitalComment on above:Performed By: #### 3040-3, CBC, CMP #### [facility] ([id number]) [address], [address] [place], [place] [address]ZCS [Catalytic activity/Vol]16 U/LNormal0-31PMercy Health Kings Mills HospitalComment on above:Performed By: #### 3040-3, CBC, CMP #### [facility] ([id number]) [address], [address] [place], [place] [address]Aoyqi gap [Moles/Vol]9 mmol/LNormal5-15ProMemorial Hermann Katy HospitalComment on above:Performed By: #### 3040-3, CBC, CMP #### [facility] ([id number]) [address], [address] [place], [place] [address]CMO [Catalytic activity/Vol]19 U/LNormal0-41ProMemorial Hermann Katy HospitalComment on above:Performed By: #### 3040-3, CBC, CMP #### [facility] ([id number]) [address] [place], [place] [address]Nxovbbsvc [Mass/Vol]0.5 mg/dLNormal0.3-1.2PMercy Health Kings Mills HospitalComment on above:Performed By: #### 3040-3, CBC, CMP #### [facility] ([id number]) [address], [address] [place], [place] [address]Cxxrlbm [Mass/Vol]9.3 mg/dLNormal8.5-10.5PMercy Health Kings Mills HospitalComment on above:Performed By: #### 3040-3, CBC, CMP #### [facility] ([id number]) [address], [address] [place], [place] [address]Cjuagipe [Moles/Vol]105 mmol/WGjmuel75-558HixXsjessMemorial Hermann Katy HospitalComment on above:Performed By: #### 3040-3, CBC, CMP #### [facility] ([id number]) [address], [address] [place], [place] [address]HN2 [Moles/Vol]27 mmol/DLydryv01-01NzmSzcfsvMercy Health Kings Mills Hospital Comment on above:Performed By: #### 3040-3, CBC, CMP #### [facility] ([id number]) [address], [address] [place] [address]Xisvdiajkd [Mass/Vol]0.62 mg/dLNormal0.40-1.00[facility] HospitalComment on above:Result Comment: METHOD TRACEABLE TO IDMS STANDARD Performed By: #### 3040-3, CBC, CMP #### [facility] ([id number]) [address], [facility] [address] [place], [place] [address]eFMM (CKD-EPI) NON-RACE DEPENDENT>90Normal>59ProMemorial Hermann Katy HospitalComment on above:Result Comment: Reported eGFR is based on the CKD-EPI 2020 equation that does not use a race coefficient.Performed By: #### 3040-3, CBC, CMP #### [facility] ([id number]) [address], [address] [place], [place] [address]Wawmlxr [Mass/Vol]85 mg/sNZzirgj06-95VqyMvffzxMercer County Community Hospital Comment on above:Performed By: #### 3040-3, CBC, CMP #### [facility] ([id number]) [address] [address] [place] [address]Evuoahpbx [Moles/Vol]4.2 mmol/LNormal3.5-5.0[facility] HospitalComment on above:Performed By: #### 3040-3, CBC, CMP #### [facility] ([id number]) [address], [facility] [address] [place], [place] [address]Jwmqucy [Mass/Vol]7.2 g/dLNormal6.0-8.0[facility] HospitalComment on above:Performed By: #### 3040-3, CBC, CMP #### [facility] ([id number]) [address], [address] [place], [place] [address]Svluqj [Moles/Vol]141 mmol/RRriqfd922-728BwcThtkoy [facility] HospitalComment on above:Performed By: #### 3040-3, CBC, CMP #### [facility] ([id number]) [address], [address] [place], [place] [address]Dbnr nitrogen [Mass/Vol]12 mg/dLNormal5-23ProMemorial Hermann Katy HospitalComment on above:Performed By: #### 3040-3, CBC, CMP #### [facility] ([id number]) [address], [address] [place], [place] [address]TSJBDDbp 00-05-0273Laqcvg [Catalytic activity/Vol]38 U/LNormal 11-82ProMemorial Hermann Katy HospitalComment on above:Performed By: #### 3040-3, CBCA, CMP #### [facility] ([id number]) [address] [place] [address], FIRST FLOOR [place], [place] [address]IS ABDOMEN LMTDon 69-69-8833OC ABDOMEN LMTDUS ABDOMEN LMTD ABDOMEN LIMITED ULTRASOUND HISTORY: Right upper quadrant pain COMPARISON: None FINDINGS: Pancreas: Visualized portions of the pancreatic head and body are unremarkable. Diffusely increased hepatic echogenicity compatible with hepatocellular disease, probably secondaryto steatosis. Within these limits, no focal hepatic lesion. No intrahepatic biliary dilatation. Gallbladder sludge, tiny layering stones, no wall thickening, no adjacent fluid. Common duct measures 1 mm, within normal limits for patient's provided age. No visualized ascites. IMPRESSION: 1. Findings of hepatic steatosis. 2. Gallbladder sludge, tiny layering stones, no wall thickening, no adjacent fluid. Finalized by Placido Teixeira MD on 05/31/2024 1:58 PMNormalMercer County Community Hospital Coding Summaryon 84-60-7620Rujzzq SummaryHTMLBase 64 FrvsgaxoSSu8dBu+PGhlYWQ+QW0QYBCuQ23pwZYdjM7gR0YBLSxUGswcFKEWQEbKUdEtxdKqMK5lpRGo ZXJu [file] Y29 (more content not included)...[facility] Healthcare SystemConsent Formson 53-81-2596Hzwvuvt [id number]#1.00OTGTIFF [facility].Auto Diff 1on 53-06-0382Mcpk Avery %3 %Normal1-[facility] Medical CenterComment on above:Performed By: #### [id number], [id number], 1017212, 2609051, 68265125, 6774106, [id number] ####[facility] (DEFAULT)[address] [place] [address]Ubzg Abs#0.0 s45Dfysrk7.0-0.2Mjoint [facility] Comment on above:Performed By: #### [id number], [id number], [id number], 4160179, 87428805, 9704356, [id number] ####[facility] (DEFAULT)[address] [place] [address]Umktiedmf/100 WBC (Bld)0.4 %Normal0.2-2.0[facility] Medical CenterComment on above:Performed By: #### [id number], [id number], [id number], 3206078, 92383851, 0522020, [id number] ####[facility] (DEFAULT)[address] [place] [address]Pgz Abs#0.3 m95Fprxhg7.0-0.4[facility] HospitalComment on above:Performed By: #### [id number], [id number], 6641766, 3376838, 57156616, 7437177, [id number] ####[facility] (DEFAULT)[address] [place] [address] 42929Ivwmkozvkmz/100 WBC (Bld)2.9 %Normal0.9-4.0[facility] Comment on above:Performed By: #### [id number], [id number], [id number], 0789940, 60911032, 5228747, [id number] ####[facility] (DEFAULT)[address] [place] [address] 13305Mclye Abs#1.8 m87Hdxwyx9.3-2.9[facility] Comment on above:Performed By: #### [id number], [id number], 5734324, 7522944, 35647213, 6287611, [id number] ####[facility] (DEFAULT)[address] [place] [address] 95978Auufbxqkzgx/100 WBC (Bld)18 %Njzght91-42Nhqfikfv HospitalComment on above:Performed By: #### [id number], [id number], 7120228, 3865327, 05185630, 0041706, [id number] ####[facility] (DEFAULT)[address] [place] [address] 22139Puaq Abs#0.3 v57Akrgwp4.0-0.8[facility] Comment on above:Performed By: #### [id number], [id number], 5077321, 1698268, 83729984, 7120904, [id number] ####[facility] (DEFAULT)[address] [place] [address] 75317Ufpo Abs#7.4 b22Hwrsgt5.5-9.2MThe [facility] Comment on above:Performed By: #### [id number], [id number], 2691965, 2015793, 10703089, 1256310, [id number] ####[facility] (DEFAULT)[address] [place] [address] 59597Okrengfbzvz/100 WBC (Bld)75 %Pqwqmq51-71Jzeowhmn HospitalComment on above:Performed By: #### [id number], [id number], 4041702, 9580487, 15735762, 0702140, [id number] ####[facility] (DEFAULT)[address] [place] [address] [id number] AND AUTO DIFFon [id number] BASOPHIL0.1 X10E9/LNormal0.0-0.2PMercy Health Kings Mills HospitalComment on above:Performed By: #### 3040-3, CBCA, CMP #### [facility] ([id number]) [address] [place] [address] 56199DYMHXZKU NEUTROPHIL8.4 X10E9/LHigh1.5-6.6ProMemorial Hermann Katy HospitalComment on above:Performed By: #### 3040-3, CBCA, CMP #### [facility] ([id number]) [address] [place] [address] 20519Tipcwhyys/100 WBC (Bld)0.7 %[facility] Comment on above:Performed By: #### 3040-3, CBCA, CMP #### [facility] ([id number]) [address] [place] [address] 49573Yfolrpvfgnj (Bld) [#/Vol]0.0 10*3/uLNormal0.0-0.4Mer[facility] HospitalComment on above:Performed By: #### 3040-3, CBCA, CMP #### [facility] ([id number]) [address] [place] [address] 15457Nmyhdocoono/100 WBC (Bld)0.2 %NormalMercer County Community Hospital Comment on above:Performed By: #### 3040-3, CBCA, CMP #### [facility] ([id number]) [address] [place] [address] 41251Inhjtgputnh distribution width (RBC) [Ratio]13.1 %Normal 11.5-15.0Mer[facility] County Community HospitalComment on above:Performed By: #### 3040-3, CBCA, CMP #### [facility] ([id number]) [address] [place] [address] 00529Iyryaphuqd (Bld) [Volume fraction]39.2 %Jksejk57-93RljVzklcpMemorial Hermann Katy HospitalComment on above:Performed By: #### 3040-3, CBCA, CMP #### [facility] ([id number]) [address] [place] [address] 31440Ewtgmczfwd (Bld) [Mass/Vol]13.1 g/fPEmtfah48.7-15.5PMercy Health Kings Mills HospitalComment on above:Performed By: #### 3040-3, CBCA, CMP #### [facility] ([id number]) [address] [place] [address] 07204Wznhprffagb (Bld) [#/Vol]1.4 10*3/uLNormal1.0-3.5PMercy Health Kings Mills HospitalComment on above:Performed By: #### 3040-3, CBCA, CMP #### [facility] ([id number]) [address] [place] [address] 27942Blihexsrhbw/100 WBC (Bld)14.0 %NormalMercer County Community Hospital Comment on above:Performed By: #### 3040-3, CBCA, CMP #### [facility] ([id number]) [address] [place] [address] 55297EHI (RBC) [Entitic mass]28.6 ohNrnqvy65-33YvhMdzmsmMercer County Community HospitalComment on above:Performed By: #### 3040-3, CBCA, CMP #### [facility] ([id number]) [address] [place] [address] 96046YZFT (RBC) [Mass/Vol]33.4 g/xTTpcnfg20-05PstJnpjxbMemorial Hermann Katy HospitalComment on above:Performed By: #### 3040-3, CBCA, CMP #### [facility] ([id number]) [address] [place] [address] 01142XZI (RBC) [Entitic vol]86 aWTybrrl76-200YrgAwofonMercer County Community HospitalComment on above:Performed By: #### 3040-3, CBCA, CMP #### [facility] ([id number]) [address] [place] [address] 88596Ufxeexttd (Bld) [#/Vol]0.3 10*3/uLNormal0-0.9Mer[facility] Community HospitalComment on above:Performed By: #### 3040-3, CBCA, CMP #### [facility] ([id number]) [address] [place] [address] 23891Audzcwvqe/100 WBC (Bld)2.5 %[facility] Comment on above:Performed By: #### 3040-3, CBCA, CMP #### [facility] ([id number]) [address] [place] [address] 06292Lpchduftpvi/100 WBC (Bld)82.6 %[facility] Comment on above:Performed By: #### 3040-3, CBCA, CMP #### [facility] ([id number]) [address] [place] [address] 98731Jhsusdbt mean volume (Bld) [Entitic vol]7.0 fLNormal7-12 [facility] HospitalComment on above:Performed By: #### 3040-3, CBCA, CMP #### [facility] ([id number]) [address] [place] [address] 48176Yxunceeyr (Bld) [#/Vol]298 10*3/nAUnengm425-507YvxMfxhqf [facility]remont HospitalComment on above:Performed By: #### 3040-3, CBCA, CMP #### [facility] ([id number]) [address] [place] [address] 54656GPB COUNT4.57 X10E12/LNormal3.80-5.20[facility] Comment on above:Performed By: #### 3040-3, CBCA, CMP #### [facility] ([id number]) [address] [place] [address] 16914IEE (Bld) [#/Vol]10.2 10*3/uLNormal4.0-11.0ProMemorial Hermann Katy HospitalComment on above:Performed By: #### 3040-3, CBCA, CMP #### [facility] ([id number]) [address] [place] [address] 09503THH w/ Auto Diffon 21-52-2325Odqdcwywwox distribution width (RBC) [Ratio]13.0 %Sqxolj75.5-15.0[facility] HospitalComment on above:Performed By: #### [id number], [id number], 7809802, 5748469, 91230051, 6035643, [id number] ####[facility] (DEFAULT)[address] [place] [address] 76273 Hematocrit (Bld) [Volume fraction]40.6 %High33.7-40.4[facility] Medical CenterComment on above:Performed By: #### [id number], [id number], 6529492, 0492821, 38250118, 8217809, 3512969104 ####[facility] (DEFAULT)[address] [place] [address] 16297Jagcsnavub (Bld) [Mass/Vol]13.7 g/hDJzbbtd41.3-15.9[facility] Medical CenterComment on above:Performed By: #### [id number], 6444566060, 1857202, 5433685, 28305321, 3017340, [id number] ####[facility] (DEFAULT)[address] [place] [address] 09910Eph Diff?AutoInvalid Interpretation CodeMetrohealth Main Campus Medical CenterComment on above:Performed By: #### [id number], [id number], 6511716, 1756939, 45302107, 0098010, 2673754521 ####[facility] (DEFAULT)[address] [place] [address] 88076PWU (RBC) [Entitic mass]29 toPtkgnu16-26Mtygvjao HospitalComment on above:Performed By: #### [id number], 4370723720, 1447271, 8318646, 51945995, 7253988, 8725074367 ####[facility] (DEFAULT)[address] [place] [address] 42972FOYZ (RBC) [Mass/Vol]34 g/lIOiwuwi67-10Vmtozoks HospitalComment on above:Performed By: #### [id number], 2440669118, 1157574, 0250236, 57308584, 1540444, 5449805440 ####[facility] (DEFAULT)[address] [place] [address] 06336GHU (RBC) [Entitic vol]87 zJXjrohg32-954Mouvulhy HospitalComment on above:Performed By: #### [id number], 4344975835, 6963423, 6654166, 31857445, 3670265, 9074846619 ####[facility] (DEFAULT)[address] [place] [address] 48757Ipusztso242 z47Ffgdco869-733Yzizeqov HospitalComment on above:Performed By: #### [id number], 4629091199, 4765907, 0179247, 96738626, 5655275, 7582419606 ####[facility] (DEFAULT)[address] [place] [address] 17961Uxadfpfa mean volume (Bld) [Entitic vol]7.2 fLNormal6.3-10.2 [facility] HospitalComment on above:Performed By: #### [id number], 2609904922, 5913671, 4183766, 66954716, 1719564, 1499734270 ####[facility] (DEFAULT)[address] [place] [address] 14562JKH1.66 k47Ruqavm2.70-5.30 [facility] HospitalComment on above:Performed By: #### [id number], 5398779207, 5754395, 3354648, 91513453, 9949146, 4811253486 ####[facility] (DEFAULT)[address] [place] [address] 96292IUI8.8 s91Uhwkok1.5-10.5[facility] HospitalComment on above:Performed By: #### [id number], 8177261032, 7418679, 1560139, 56150988, 0839196, 3186234680 ####[facility] (DEFAULT)[address] [place] [address] 34176YTS Standardon 24-77-6864bVIE Non AA>60Invalid Interpretation CodeSelect [facility] HospitalComment on above:Performed By: #### [id number], 8791288645, 5469460, 3070695, 20562691, 0153645, 0667644261 ####[facility] (DEFAULT)[address] [place] [address] 80496vZPE AA>60 Invalid Interpretation CodeSelect [facility] HospitalComment on above:Performed By: #### [id number], 4475004113, 3937185, 6276463, 45527313, 4388342, 0091702754 ####[facility] (DEFAULT)[address] [place] [address] 75891Qzytxjy [Mass/Vol]4.6 g/dLNormal3.5-5.0[facility] HospitalComment on above:Performed By: #### [id number], 9121842565, 4961947, 4646791, 45054269, 4995427, 2949316546 ####[facility] (DEFAULT)[address] [place] [address] 49936 Albumin/Globulin [Mass ratio]1.3 {ratio}Low1.4-2.6Magruniversity hospitals geneva medical center HospitalComment on above:Performed By: #### [id number], 4534066879, 2512580, 1990214, 19000356, 3258250, 6420930440 ####[facility] (DEFAULT)[address] [place] [address] 67629Mwg Phos36 IU/ACluzbn34-15Qunbdtbo HospitalComment on above: Performed By: #### [id number], 6623462140, 4936311, 5380946, 45064344, 8505945, 1840427687 ####[facility] (DEFAULT)[address] [place] [address] 66638FSU [Catalytic activity/Vol]16.0 U/PDfmfos69.0-54.0[facility] Medical CenterComment on above:Performed By: #### [id number], 7469237891, 6643935, 9508306, 24609074, 6947360, 1188202781 ####[facility] (DEFAULT)[address] [place] [address] 44104Bkbiw gap [Moles/Vol]12.5 mmol/LNormal5.0-19.0[facility] Comment on above:Performed By: #### [id number], 0636207976, 3939719, 4296250, 50697269, 4115049, 3175513499 ####[facility] (DEFAULT)[address] [place] [address] 55076YCA [Catalytic activity/Vol]18 U/YEidlrt86-34 [facility] CenterComment on above:Performed By: #### [id number], 0754029312, 6862401, 9763850, 05232730, 1576236, 7560313957 ####[facility] (DEFAULT)[address] [place] [address] 24106Xcyv Total0.7 mg/dLNormal0.3-1.2 [facility] CenterComment on above:Performed By: #### [id number], 4806045188, 4431301, 8045789, 47042350, 3456210, 8203877280 ####[facility] (DEFAULT)[address] [place] [address] 56217Coekgea [Mass/Vol]8.9 mg/dL Normal8.9-10.3Mjoint [facility] memorial [facility] HospitalComment on above:Performed By: #### [id number], 8023475365, 1575995, 2977727, 45600069, 1589139, 4541801302 ####[facility] (DEFAULT)[address] [place] [address] 57915Ouvxyues [Moles/Vol]104 mmol/CCdseco337-573Dwzirgyx HospitalComment on above:Performed By: #### [id number], 6619584866, 5959257, 8150340, 07170707, 8304654, 5011765838 ####[facility] (DEFAULT)[address] [place] [address] 39990PZ8 [Moles/Vol]24 mmol/YDcovup09-77Eaeymocq HospitalComment on above:Performed By: #### [id number], 1324488100, 0140258, 3411174, 09763166, 8683824, 8350707984 ####[facility] (DEFAULT)[address] [place] [address] 83086Oufqjrycmo [Mass/Vol]0.53 mg/dLLow0.60-1.30[facility] HospitalComment on above:Performed By: #### [id number], 9804968596, 2369120, 7793668, 52430205, 9537231, 8743900267 ####[facility] (DEFAULT)[address] [place] [address] 32682Axzsxgbo (S) [Mass/Vol]3.3 g/dLNormal1.5-4.3Mjoint [facility] hospital HospitalComment on above:Performed By: #### [id number], 4362563618, 4124557, 0714665, 52619740, 3153162, 4139116434 ####[facility] (DEFAULT)[address] [place] [address] 77793Odhtgju [Mass/Vol]99.0 mg/bKKmcvvv69.0-118.0[facility] HospitalComment on above:Performed By: #### [id number], 5948677127, 5106526, 3175623, 54207858, 6288811, 5064859592 ####[facility] (DEFAULT)[address] [place] [address] 04643 Ugwksbenza358 mOsm/LInvalid Interpretation CodeSelect [facility] HospitalComment on above:Performed By: #### [id number], 0400951557, 8973369, 1881860, 80037675, 4769094, 2090382475 ####[facility] (DEFAULT)[address] [place] [address] 56681Jpgujakmn [Moles/Vol]3.5 mmol/LLow3.6-5.1MThe [facility] Comment on above:Performed By: #### [id number], 6403009338, 8943576, 3264485, 53016954, 1963368, 5986492157 ####[facility] (DEFAULT)[address] [place] [address] 92576Twdalvx [Mass/Vol]7.9 g/dLNormal6.5-8.1MThe [facility] of [facility] Medical CenterComment on above:Performed By: #### [id number], 2547351425, 6325863, 5980572, 74324409, 8534316, 3684918512 ####[facility] (DEFAULT)[address] [place] [address] 95915Ezjddx [Moles/Vol]137.0 mmol/HWpnysp465.0-144.0 [facility] CenterComment on above:Performed By: #### [id number], 5925238538, 8657107, 9460168, 60835451, 4679497, 6127468012 ####[facility] (DEFAULT)[address] [place] [address] 48836Xgmf nitrogen [Mass/Vol]13 mg/dL Normal8-26[facility] Medical CenterComment on above:Performed By: #### [id number], 4266679942, 9649584, 8602013, 01836821, 7644345, 0719473421 ####[facility] (DEFAULT)[address] [place] [address] 33461Amnw nitrogen/Creatinine [Mass ratio]24.5 mg/mgHigh4.6-16.2MThe University of Toledo Medical CenterComment on above:Performed By: #### [id number], 4254274069, 7321363, 8471304, 84678611, 7542083, 9099522155 ####[facility] (DEFAULT)[address] [place] [address] 37977NIQCFZOQHLMZO METABOLIC PANELon 04-22-5597Olvzkxc [Mass/Vol]4.8 g/dLNormal3.2-5.3PMercy Health Kings Mills HospitalComment on above:Performed By: #### 3040-3, CBCA, CMP #### [facility] ([id number]) [address] [place] [address], [place] [address]ESJ [Catalytic activity/Vol]39 U/SIibbyi05-287IbaXjeejdMemorial Hermann Katy HospitalComment on above:Performed By: #### 3040-3, CBCA, CMP #### [facility] ([id number]) [address] [place] [address], [place] [address]BZY [Catalytic activity/Vol]20 U/LNormal0-31PMercy Health Kings Mills HospitalComment on above:Performed By: #### 3040-3, CBCA, CMP #### [facility] ([id number]) [address] [place] [address], [place] [address]Rilph gap [Moles/Vol]9 mmol/LNormal5-15ProMemorial Hermann Katy HospitalComment on above:Performed By: #### 3040-3, CBCA, CMP #### [facility] ([id number]) [address] [place] [address], [place] [address]XEV [Catalytic activity/Vol]20 U/LNormal0-41ProMemorial Hermann Katy HospitalComment on above:Performed By: #### 3040-3, CBCA, CMP #### [facility] ([id number]) [address] [place] [address], [place] [address]Kgjnwjnyh [Mass/Vol]0.8 mg/dLNormal0.3-1.2PMercy Health Kings Mills HospitalComment on above:Performed By: #### 3040-3, CBCA, CMP #### [facility] ([id number]) [address] [place] [address], [place] [address]Rygdowq [Mass/Vol]9.6 mg/dLNormal8.5-10.5PMercy Health Kings Mills HospitalComment on above:Performed By: #### 3040-3ASHLEY, CMP #### [facility] ([id number]) [address] [place] [address], [place] [address]Zkzzdpjb [Moles/Vol]106 mmol/MHdezzr04-118XvyVvtuinMemorial Hermann Katy HospitalComment on above:Performed By: #### 3040-3ASHLEY, CMP #### [facility] ([id number]) [address] [place] [address], [place] [address]YU1 [Moles/Vol]25 mmol/NVzvkom97-24YpjWxyrpaMercy Health Kings Mills Hospital Comment on above:Performed By: #### 3040-3ASHLEY, CMP #### [facility] ([id number]) [address] [place] [address], [place] [address]Pujcoakwiw [Mass/Vol]0.65 mg/dLNormal0.40-1.00ProMemorial Hermann Katy HospitalComment on above:Result Comment: METHOD TRACEABLE TO IDMS STANDARD Performed By: #### 3040-3ASHLEY, CMP #### [facility] ([id number]) [address] [place] [address], [place] [address]mHGN (CKD-EPI) NON-RACE DEPENDENT>90Normal>59ProMemorial Hermann Katy HospitalComment on above:Result Comment: Reported eGFR is based on the CKD-EPI 202 equation that does not use a race coefficient.Performed By: #### 3040-3, ASHLEY, CMP #### [facility] ([id number]) [address] [place] [address] 05000Gueubhq [Mass/Vol]141 mg/jEOdah10-24KstBqkikwMercer County Community Hospital Comment on above:Performed By: #### 3040-3, ASHLEY, CMP #### [facility] ([id number]) [address] [place] [address] 95783Afgvyxhxa [Moles/Vol]3.5 mmol/LNormal3.5-5.0ProMemorial Hermann Katy HospitalComment on above:Performed By: #### 3040-3, CBCA, CMP #### [facility] ([id number]) [address] [place] [address] 65342Nqixefj [Mass/Vol]8.1 g/dLHigh6.0-8.0ProMemorial Hermann [facility] Hospital Comment on above:Performed By: #### 3040-3, CBCA, CMP #### [facility] ([id number]) [address] [place] [address] 35996Pntohu [Moles/Vol]140 mmol/TZnzqic589-091SbsMbzvzl [facility]remont HospitalComment on above:Performed By: #### 3040-3, CBCA, CMP #### [facility] ([id number]) [address] [place] [address] 18457Wiur nitrogen [Mass/Vol]14 mg/dLNormal5-23ProMemorial Hermann Katy HospitalComment on above:Performed By: #### 3040-3, CBCA, CMP #### [facility] ([id number]) [address] [place] [address] 64836VC Abdomen/Pelvis w/ Contraston [id number] Abdomen/Pelvis w/ ContrastEXAMINATION: CT Abdomen/Pelvis w/ Contrast, 05/12/2024 12:14 AM MST HISTORY: Abdominal pain, acute, nonlocalized COMPARISON: None. TECHNIQUE: CT scan of the abdomen and pelvis was performed with IV contrast. CT dose reduction technique was used, including Automated Exposure Control. FINDINGS: The visualized portions of the lung bases are clear. Abdomen: The liver and spleen enhance homogeneously without focal lesion. There is no intra or extrahepatic biliary duct dilatation. The gallbladder is unremarkable. The pancreas, adrenal glands, kidneys, and bowel loops, including the appendix, are unremarkable. There is no mesenteric or retroperitoneal lymphadenopathy. Pelvis: The bladder and rectum are unremarkable. There is no iliac or inguinal lymphadenopathy. The uterus is present. The ovaries appear within normal limits by CT. Bone windows show no aggressive osseous lesions. IMPRESSION: 1. No specific etiology identified to explain the patient's abdominal pain. 2. Normal appendix. Final Dictated by: Garrick Tinoco MD Dictated DT/TM: 05/12/24 2:34 Signed (Electronic Signature): Garrick Tinoco MD 05/12/24 2:38 am Technologist: [facility] Clinical Summaryon [id number] [address] [place], [place] [id number] ED Clinical Summary PERSON INFORMATION Name: MARTINA MELENDEZ Age: 33 Years Sex: FEMALE : 1990 MRN: Acct#: Visit Reason: Nausea and / or Vomiting; Abdominal pain; ABD PAIN, NAUSEA Arrival: 05/11/2024 23:31:20 Discharge: 05/12/2024 03:39:00 LOS: 000 04:08 Check In: 05/11/2024 23:31:20 Checkout:05/12/2024 03:39:00 Address: [address] [place] [address] PCP: Provider, None PROVIDER INFORMATION Provider Role Assigned Unassigned Sayra Ramirez RN ED Nurse 05/11/2024 23:40:30 Alexis Coyne MD ED Provider 05/12/2024 00:16:32 VITALS INFORMATION Vital Sign Triage Latest Temperature Tympanic Temperature Temporal Artery Pulse Rate 72 bpm 81 bpm O2 Sat 100 % 99 % Respiratory Rate Blood Pressure /85 mmHg /85 mmHg MEDICAL INFORMATION Medications Given: Medication Dose Route ondansetron 4 mg IV Push diatrizoate (Gastrografin 37% 30 ml) 30 mL Oral ondansetron 4 mg IV Push iohexol (Omnipaque 350 100 ml) 350 mg IV Push Allergy Information: No Known Medication Allergies PHYSICIAN DOCUMENTATION Patient: MARTINA MELENDEZ Age: 33 years Sex: FEMALE : 1990 Associated Diagnoses: Acute vomiting; Abdominal pain, acute, epigastric Author: Alexis Coyne MD Basic Information Time seen: Date & time 05/12/2024 00:12:00. History source: Patient. Arrival mode: Private vehicle. History limitation: None. Additional information: Chief Complaint from Nursing Triage Note : Chief Complaint 05/11/2024 23:42 EST Chief Complaint Stomach pain on/off X2 months with associated n/vX6 today. Patient also said over the past 2 weeks she has been intermittently SOB. No SOB now, but its a different symptoms pt states she usually does not have. . History of Present Illness The patient presents with abdominal pain. 33-year-old female presented to ER for evaluation of abdominal pain and vomiting. Patient stated that she has been having intermittent upper region abdominal pain for the past several months. Stated that she had increasing pain within the last several days. Stated that she had eaten half banana andsmall slice of lasagna, around 7 PM. Patient stated that she vomited that up. She stated that she had gone to work, noted that she had persistent upper region abdominal pain. 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 Presented to ER for further evaluation. Had normal bowel movement. There is no recent fevers or chills. Stated that she has been having intermittent upper region abdominal pain, had tried to follow-up with primary care provider but has no availability. Several primary provider had moved out of town She recalled that she had emergent surgery in 2013, recovered from that without difficulties. Rare alcohol use. Works at [employer] Review of Systems Constitutional symptoms: No fever, Skin symptoms: No jaundice, Eye symptoms: Negative except as documented in HPI. ENMT symptoms: Negative except as documented in HPI. Respiratory symptoms: Negative except as documented in HPI. Cardiovascular symptoms: Negative except as documented in HPI. Gastrointestinal symptoms: Abdominal pain, nausea, vomiting, no diarrhea, no constipation. Genitourinary symptoms: No dysuria, Musculoskeletal symptoms: No back pain, Neurologic symptoms: Negative except as documented in HPI. Psychiatric symptoms: Negative except as documented in HPI. Endocrine symptoms: Negative except as documented in HPI. Hematologic/Lymphatic symptoms: Negative except as documented in HPI. Health Status Allergies: Allergic Reactions (Selected) No Known Medication Allergies. Past Medical/ Family/ Social History Medical history: No active or resolved past medical history items have been selected or recorded., Reviewed as documented in chart. Surgical history: No active procedure history items have been selected or recorded., Reviewed as documented in chart. Family history: No family history items have been selected or recorded., Reviewed as documented in chart. Social history: Social & Psychosocial Habits Alcohol 05/11/2024 Alcohol Use: Current Frequency: 1-2 times per week Substance Use 05/11/2024 Substance use: Current Type: Marijuana Tobacco 05/11/2024 Smoking tobacco use: Current everyday tobacco Electronic Cigarette/Vaping 05/11/2024 Electronic Cigarette Use: Never , Reviewed as documented in chart. Problem list: Active Problems (1) Tobacco user , per nurse's notes. Physical Examination Vital Signs Vital Signs 05/11/2024 23:42 EST Temperature Oral 36.6 DegC Peripheral Pulse Rate 72 bpm Systolic Blood Pressure 127 mmHg HI Diastolic Blood Pressure 85 mmHg HI SpO2 100 % Oxygen Therapy Room air . General: Alert, mild distress. Skin: Warm, dry, intact. Head: Normocephalic, atraumatic. Neck: Supple, trachea midline. Eye: Extraocular movements are intac (more content not included)...Normal [facility] CenterED Note - Physicianon [id number] Note - PhysicianPatient: MARTINA MELENDEZ Age: 33 years Sex: FEMALE : 1990 Associated Diagnoses: Acute vomiting; Abdominal pain, acute, epigastric Author: Alexis Coyne MD Basic Information Time seen: Date & time 05/12/2024 00:12:00. History source: Patient. Arrival mode: Private vehicle. History limitation: None. Additional information: Chief Complaint from Nursing Triage Note : Chief Complaint 05/11/2024 23:42 EST Chief Complaint Stomach pain on/off X2 months with associated n/vX6 today. Patient also said over the past 2 weeks she has been intermittently SOB. No SOB now, but its a different symptoms pt states she usually does not have. . History of Present Illness The patient presents with abdominal pain. 33-year-old female presented to ER for evaluation of abdominal pain and vomiting. Patient stated that she has been having intermittent upper region abdominal pain for the past several months. Stated that she had increasing pain within the last several days. Stated that she had eaten half banana andsmall slice of lasagna, around 7 PM. Patient stated that she vomited that up. She stated that she had gone to work, noted that she had persistent upper region abdominal pain. 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 Presented to ER for further evaluation. Had normal bowel movement. There is no recent fevers or chills. Stated that she has been having intermittent upper region abdominal pain, had tried to follow-up with primary care provider but has no availability. Several primary provider had moved out of town She recalled that she had emergent surgery in 2013, recovered from that without difficulties. Rare alcohol use. Works at [employer] Constitutional symptoms: No fever, Skin symptoms: No jaundice, Eye symptoms: Negative except as documented in HPI. ENMT symptoms: Negative except as documented in HPI. Respiratory symptoms: Negative except as documented in HPI. Cardiovascular symptoms: Negative except as documented in HPI. Gastrointestinal symptoms: Abdominal pain, nausea, vomiting, no diarrhea, no constipation. Genitourinary symptoms: No dysuria, Musculoskeletal symptoms: No back pain, Neurologic symptoms: Negative except as documented in HPI. Psychiatric symptoms: Negative except as documented in HPI. Endocrine symptoms: Negative except as documented in HPI. Hematologic/Lymphatic symptoms: Negative except as documented in HPI. Health Status Allergies: Allergic Reactions (Selected) No Known Medication Allergies. Past Medical/ Family/ Social History Medical history: No active or resolved past medical history items have been selected or recorded., Reviewed as documented in chart. Surgical history: No active procedure history items have been selected or recorded., Reviewed as documented in chart. Family history: No family history items have been selected or recorded., Reviewed as documented in chart. Social history: Social & Psychosocial Habits Alcohol 05/11/2024 Alcohol Use: Current Frequency: 1-2 times per week Substance Use 05/11/2024 Substance use: Current Type: Marijuana Tobacco 05/11/2024 Smoking tobacco use: Current everyday tobacco Electronic Cigarette/Vaping 05/11/2024 Electronic Cigarette Use: Never , Reviewed as documented in chart. Problem list: Active Problems (1) Tobacco user , per nurse's notes. Physical Examination Vital Signs Vital Signs 05/11/2024 23:42 EST Temperature Oral 36.6 DegC Peripheral Pulse Rate 72 bpm Systolic Blood Pressure 127 mmHg HI Diastolic Blood Pressure 85 mmHg HI SpO2 100 % Oxygen Therapy Room air . General: Alert, mild distress. Skin: Warm, dry, intact. Head: Normocephalic, atraumatic. Neck: Supple, trachea midline. Eye: Extraocular movements are intact, normal conjunctiva. Cardiovascular: Regular rate and rhythm, No murmur. Respiratory: Lungs are clear to auscultation, respirations are non-labored. Gastrointestinal: Soft, Non distended, Tenderness: Moderate, epigastric, Rebound: Negative, Bowel sounds: Normal, Organomegaly: Negative, Trauma: Negative. Back: Normal range of motion. Musculoskeletal: Normal ROM, normal strength. Neurological: Alert and oriented to person, place, time, and situation, No focal neurological deficit observed. Medical Decision Making Differential Diagnosis: Abdominal pain, Appendicitis, bowel obstruction, bowel perforation, renal stone, ureteral stone, biliary colic, cholecystitis, hepatitis, pancreatitis, irritable bowel syndrome, gastroesophageal reflux disease, gastroenteritis, peptic ulcer disease, gastritis, abdominal aortic aneurysm, ischemic bowel, diverticulitis. Orders Launch Orders Laboratory: Magnesium Level (Order): Blood, Stat collect, 05/12/2024 0:27 EST, Lab Collect UA w Micro, if Ind Standard (Order): Urine, Stat collect, 05/12/2024 0:27 EST, Once, Stop date 05/12/2024 0:27 EST, Nurse collect CBC w/ Auto Diff (Order): Blood, St (more content not included)...[facility] SystemED Patient Summaryon [id number] Patient [facility] - Emergency Department [address] [place] [address] PATIENT DISCHARGE INSTRUCTIONS Patient Information Name: MARTINA MELENDEZ Age: 33 Years Date of : 1990 Reason For Visit: Nausea and / or Vomiting; Abdominal pain; ABD PAIN, NAUSEA Arrival Time: 05/11/2024 23:31:20 Primary Care Physician: Provider, None Attending Physician: Alexis Coyne MD Comment: Visit Diagnosis: Diagnoses This Visit Abdominal pain ([id number]) Abdominal pain, acute, epigastric (R10.13) Acute vomiting (R11.10) Nausea and / or Vomiting ([id number]) The Pharmacy at [facility] is open Saturday through Saturday from 9A to 6P and Saturday and Saturday from 9A to 5P Prescription Information: If you have been given a prescription for narcotics, seek immediate medical attention if you have any difficulty breathing or any sudden status changes such as confusion andsleepiness. If you or anyone you know is experiencing suicidal thoughts, mental health, alcohol and/or drug addiction problems; contact the [facility] 17/12 Crisis Hotline -Text 4HNJK to 275165. If you received any narcotics, sedation, or any other medication that causes drowsiness for the next 24 hours, unless otherwise directed: ? Do not drive a car. ? Do not operate machinery such as power tools, lawn mowers, drills, sewing machines, or stoves ? Avoid alcoholic beverages and drugs for allergies, nerves, or sleep ? Do not make important personal or business decisions or sign any legal documents With: Address: When: Cipriano Vora [address] [place], [place] [address] Business (1) Within 3 to 5 days Comments: You were seen in the emergency department for abdominal pain. Diagnostic workup in the ER did not reveal any specific explanation for your abdominal pain. No acute emergency identified. Additional evaluation and diagnostic workup may be required to explain your symptoms. Contact your family doctor or PCP within the recommended time for reevaluation. Return to ER for any concerns especially worsening pain, fever, vomiting or weakness. Continue with the current treatment as outlined by the ER physician, Dr Coyne. Keep a dietary diary. Observe for any change in symptoms or abdominal pain or vomiting with certainfood items. Contact your assigned on-call doctor for a follow-up appointment if you do not have a local family doctor or PCP. Call the emergency department if you have any questions or concerns regarding your treatment today. Return to the emergency department if you have significant symptoms that concerns you. Medication Information: The exam and treatment you received today in the [facility] Emergency Department were for an urgent problem and are not intended as complete care. It is important for you to follow up with a doctor, nurse practitioner, or physician?s payroll human resources assistant for ongoing care. If your symptoms become worse or you donot improve as expected and you are unable to reach your usual health care provider, you should return to the Emergency Department, we are available 24 hours a day. For those patients who have received Radiology results, the interpretation of your X-ray as given to you by our Emergency Department physician is only a preliminary report. The Radiologist will review your films and if there is a change in the diagnosis you will be notified by phone. Please make sure you have provided a working phone number so we can reach you if necessary. In the event that you had a lab culture while you were a patient in the Emergency Department, you will be notified by phone if there is a need to change your antibiotic. Please make sure you have provided a working phone number so we can reach you if necessary. [facility] Emergency Department has provided you with a complete list of medications post discharge. Please inform your infant babysitter/provider of your visit and for further instruction on these medications. Any specific questions regarding your chronic medications and dosages should be discussed with your primary care physician(s) and/or pharmacist. New Medications Printed Prescriptions prochlorperazine (prochlorperazine 10 mg oral tablet) 1 tab(s) Oral (given by mouth) 3 times per day as needed nausea/vomiting for 5 Days. Refills: 0. Visit Information Allergies: Substance Reaction Symptoms Type Comments No Known Medication Allergies Drug Vital Signs: Vitals and Measurements this Visit (last charted value for your 05/11/2024 visit) Vital Signs This Visit Temperature Oral: 36.6 DegC Peripheral Pulse Rate: 81 bpm Systolic Blood Pressure: 119 mmHg Diastolic Blood Pressure: 81 mmHg Mean Arterial Pressure, Cuff-Calculation: 94 mmHg SpO2: 99 % Oxygen Therapy: Room air Problems List: Problem Onset Comments Tobacco user Pat (more content not included)...[facility] Healthcare SystemExtra Redon 05-12-2024 Tube CollectedYesInvalid Interpretation [facility] HospitalComment on above: Performed By: #### [id number], [id number], [id number], [id number], [id number], [id number], [id number] ####[facility] (DEFAULT)[address] [place], [place] [address]GDJ ( test) Ql (U)on 61-76-1889Zdip HCG ( test) Ql (U) NegativeNormalNEGProMedica Encino Hospital Medical CenterComment on above:Performed By: #### 2106-3 #### [facility] ([id number]) [address] [place] [address], FIRST FLOOR [place], [place] [address]RBKEEVbt 96-29-9423Ibjprm [Catalytic activity/Vol]39 U/LNormal 17-40ProMedica Encino Hospital Medical CenterComment on above:Performed By: #### 3040-3, CBCA, CMP #### [facility] ([id number]) [address] [facility], [place], [place] [address]Fmbgoqzl 08-25-5564Yfkxxv Level37.0 IU/HSpjcei63.0-51.0[facility] Medical CenterComment on above:Performed By: #### [id number], [id number], [id number], [id number], [id number], [id number], [id number] ####[facility] (DEFAULT)[address] [place] [address]96[address]Updidncrhei 93-05-9660Nejrjgnlq [Mass/Vol]1.90 mg/dL Normal1.80-2.50[facility] Medical CenterComment on above:Performed By: #### [id number], [id number], [id number], [id number], [id number], [id number], [id number] ####[facility] (DEFAULT)[address] [place] [address]PABK/FLU A+B/RSV by NAAT/Molecularon 93-37-4344EGQW/FLU A+B/RSV by NAAT/MolecularFLU A PCR Negative (qualifier value) FLU B PCR Negative (qualifier value) RSV by PCR Negative (qualifier value) SARS CoV 2 Not detected (qualifier value) NOTE The Xpert Xpress SARS-CoV-2/Flu/RSV Plus test is a rapid, multiplexed real-time RT-PCR test intended for the simultaneous qualitative detection and differentiation of SARS-CoV-2, influenza A, influenza B and respiratory syncytial virus (RSV) viral RNA from individuals suspected of respiratory viral infection consistent with COVID-19 by their healthcare provider. This test has not been validated in asymptomatic patients. The Xpert Xpress SARS-CoV-2 test is intended for use by qualified and trained operators who are performing tests using either Absio DX or CASTT systems and is limited to laboratories that meet the CLIA requirements to perform high and moderate complexity tests. The Xpert Xpress SARS-CoV-2/Flu/RSV Plus is only for use under the Food and Drug Administration's Emergency Use Authorization. Results are for the simultaneous detection and differentiation of SARS-CoV-2, influenza A, influenza B and RSV nucleic acids in clinical specimens. SARS-CoV-2, influenza A, influenza B and RSV RNA identified by this test are generally detectable in upper respiratory samples during the acute phase of infection. Positive results are indicative of the presence of the identified virus, but do not rule out bacterial infection or co-infection with other pathogens not detected by this test. Clinical correlation with patient history and other diagnostic information is necessary to determine patient infection status. The agent detected may not be the definite cause of disease. Negative results do not preclude SARS-CoV-2, influenza A, influenza B and RSV infection and should not be used as the sole basis for treatment or other patient management decisions. Negative results must be combined with clinical observations, patient history and epidemiological information. An Invalid result may occur with specimen-associated inhibition unable to be resolved with specimen repeat. Fact Sheet for Healthcare Providers: https://www.fda.gov/media/895560/download Fact Sheet for Patients: https://www.fda.gov/media/311617/downloadNormalProMedica Encino Hospital Medical CenterComment on above:Performed By: #### COVFLR #### [facility] ([id number]) [address] [place] [address], [place], [place] [address] Pduxz8qk 52-78-1040IQ [facility] Comment on above:Order Comment: Urinalysis Microscopic order added on by ERCOM Expert Rules system.Performed By: #### [id number], [id number] ####[facility] (DEFAULT)[address] [place] [address] 27170ME CA Ox Crystal2+ [facility] Healthcare SystemComment on above:Order Comment: Urinalysis Microscopic order added on by ERCOM Expert Rules system.Performed By: #### [id number], [id number] ####[facility] (DEFAULT)[address] [place] [address]23 UA Mucous3+[facility] Healthcare SystemComment on above:Order Comment: Urinalysis Microscopic order added on by ERCOM Expert Rules system.Performed By: #### [id number], [id number] ####[facility] (DEFAULT)[address] [place] [address] 18936WF RBCNone SeenACMC Healthcare SystemComment on above:Order Comment: Urinalysis Microscopic order added on by ERCOM Expert Rules system. Performed By: #### [id number], [id number] ####[facility] (DEFAULT)[address] [place] [address] 61177WU Squam EpiModerateACMC Healthcare System Comment on above:Order Comment: Urinalysis Microscopic order added on by ERCOM Expert Rules system.Performed By: #### [id number], [id number] ####[facility] (DEFAULT)[address] [place], [place] [address]UA WBC0-2NormalMetrohealth Main Campus Medical CenterComment on above:Order Comment: Urinalysis Microscopic order added on by ERCOM Expert Rules system.Performed By: #### [id number], [id number] ####[facility] (DEFAULT)[address] [place] [address] 34749TE w Micro, if Ind Standardon 13-57-6462Bmaybpohbl UAACMC Healthcare System Comment on above:Performed By: #### [id number], [id number] ####[facility] (DEFAULT)[address] [place] [address] 14191Shdxe (U)YellowACMC Healthcare SystemComment on above:Performed By: #### [id number], [id number] ####[facility] (DEFAULT)[address] [place] [address] 69557Vpzbygj (U) [Mass/Vol] NegativeCleveland Clinic Medina Hospital HospitalComment on above:Performed By: #### [id number], [id number] ####[facility] (DEFAULT)[address] [place] [address] 76[address] Ketones Ql (U)NegativeCleveland Clinic Medina Hospital HospitalComment on above:Performed By: #### [id number], [id number] ####[facility] (DEFAULT)[address] [place] [address] 16444Amwva?IndicatedInvalid Interpretation [facility] Comment on above:Result Comment: Result created by rule GL_MAGR_ADD_UA_MICRO Performed By: #### [id number], [id number] ####[facility] (DEFAULT)[address] [place] [address] 88316XY BilirubinNegativeACMC Healthcare System Comment on above:Performed By: #### [id number], [id number] ####[facility] (DEFAULT)[address] [place] [address] 17793JE BloodNegativeNormalNEGATIVE [facility] HospitalComment on above:Performed By: #### [id number], [id number] ####[facility] (DEFAULT)[address] [place] [address] 927[address]GH Clarity SL CLOUDYAbnormalCLESt. Anthony's Hospital HospitalComment on above:Performed By: #### [id number], [id number] ####[facility] (DEFAULT)[address] [place] [address] 56372XX Leuk EstNegativeNormalNEGMercy Health Urbana Hospital HospitalComment on above:Performed By: #### [id number], [id number] ####[facility] (DEFAULT)[address] [place] [address] 33784XW NitriteNegativeNormalNEGMercy Health Urbana Hospital HospitalComment on above:Performed By: #### [id number], [id number] ####[facility] (DEFAULT)[address] [place] [address] 97480BX pH5.2Nafdvw0-7 [facility] CenterComment on above:Performed By: #### [id number], [id number] ####[facility] (DEFAULT)[address] [place] [address] 96249SM Protein NegativeNormalNEGMercy Health Urbana Hospital HospitalComment on above:Performed By: #### [id number], [id number] ####[facility] (DEFAULT)[address] [place] [address] 42818RX Spec Grav>=1.227Ilklzb9.001-1.035[facility] HospitalComment on above:Performed By: #### [id number], [id number] ####[facility] (DEFAULT)[address] [place] [address] 37211AV Urobilinogen0.2 mg/dLNormal 0.2-1.0[facility] HospitalComment on above:Performed By: #### [id number], [id number] ####[facility] (DEFAULT)[address] [place] [address] 35985Rfwaz SourceClean CatchNormNorwalk Memorial Hospital HospitalComment on above:Performed By: #### [id number], [id number] ####[facility] (DEFAULT)[address] [place] [address] 52446RPF MACROSCOPIC NURon 24-65-8494AKSYNXUZU NURSmallAbnormalNEG ProMjack hughston memorial hospitala [facility] Medical CenterComment on above:Performed By: #### NUM #### [facility] ([id number]) [address] [place] [address] 727[address]AGLZY/HGB NURNegativeNormalNEGProMemorial Hermann Katy HospitalComment on above:Performed By: #### NUM #### [facility] ([id number]) [address] [place] [address] 59246OGPXZEM NURNegativeNormalNEGMercer County Community HospitalComment on above:Performed By: #### NUM #### [facility] ([id number]) [address] [place] [address] 78281MJHRQGS NUR40 mg/dLAbnormalNEGProMemorial Hermann Katy HospitalComment on above:Performed By: #### NUM #### [facility] ([id number]) [address] [place] [address] 44475VTWGUKGTJ ESTERASE NURNegativeNormalNEGMercer County Community HospitalComment on above:Performed By: #### NUM #### [facility] ([id number]) [address] [place] [address] 95097IPIANVT NURNegativeNormalNEGMercer County Community HospitalComment on above:Performed By: #### NUM #### [facility] ([id number]) [address] [place] [address] 98342XN NUR7.1Nafuhd7.0-8.5PMercy Health Kings Mills HospitalComment on above:Performed By: #### NUM #### [facility] ([id number]) [address] [place] [address] 32618YROIUKR YNES>=300AbnormalNEGProMemorial Hermann Katy HospitalComment on above:Performed By: #### NUM #### [facility] ([id number]) [address] [place] [address] 19440MGPUCPUD GRAVITY NUR1.266Gnqjav5.003-1.035ProMemorial Hermann Katy HospitalComment on above:Performed By: #### NUM #### [facility] ([id number]) [address] [place] [address] 58508TXXDYVXQLRCJ NUR1.0 eu/dLNormal<1.1PMercy Health Kings Mills Hospital Comment on above:Performed By: #### NUM #### [facility] ([id number]) [address] [place] [address] 73358RN Note-Physicianon 92-06-5744XZ Note-PhysicianBasic Information Time Seen: Evangelist Butcher PA-C 11/14/2019 18:21 Chief Complaint intermittent fevers since trip to [place] last 24 hours. denies nausea, vomiting, diarrhea History of Present Illness 29-year-old female presents to the emergency room for evaluation of the fever and cough. The patient states the fever started today and cough followed thereafter. She states that she is recently on vacation in [place]. She states she is on multiple people and now some of them are starting toget sick as well. She states that she [...] wheezing, 8.5 gram, Refill(s) 0, [facility], 160, cm, 01/02/19 21:22:00 EDT, Height/Length Measured, 95.3, kg, 01/02/19 21:22:00 EDT, WeightMeasured brompheniramine/dextromethorphan/PSE, 5-10 mL, Oral, QID for cold symptoms, 180 mL, Refill(s) 0, [facility] [address], 160, cm, 01/02/19 21:22:00 EDT, Height/Length Measured, 95.3, kg, 01/02/1921:22:00 EDT, Weight Measured SARS-CoV-2, LENA Disposition Plan Patient Discharge Condition Stable Discharge Disposition Discharged home Discharge Prescription List Prescriptions Bromfed DM oral syrup, 5-10 mL, Oral, QID, PRN ProAir HFA 90 mcg/inh inhalation aerosol, 1 puff(s), Inhalation, q6hr, PRN Follow-up With When Contact Information Jerri Dumont In 3 days 11/17/[address] [place] [address]- Business (1) Additional Instructions: Patient Education Viral [...] The case was discussed with: the physician payroll human resources assistant, Evangelist Butcher PA-C. 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 Diagnostic Results No qualifying data available.[facility] WestComment on above: Result Comment: Electronically Signed By: Evangelist Butcher PA-C\.br\Date and Time Signed: 11/14/19 19:19 EDT\.br\Electronically Co-Signed By: Cb Luciano M.D.\.br\Date and Time Co-Signed: 11/18/19 09:27 EDTCoding Summary.on 53-08-9229Whuewt Summary.CODING DATE: 11/16/2019 FINAL [facility] STATUS: Home (Routine DC) PAYOR: Pablo ADMIT DX: REASON FOR VISIT DX: R50.9 [...] By: Arlene Sanchez Date Saved: 11/16/2019 08:31 amNOhioHealth Arthur G.H. Bing, MD, Cancer CenterConsent for Treatmenton 78-10-0593Bkdpktm for Treatment [id number]:127NoOhioHealth Arthur G.H. Bing, MD, Cancer CenterDischarge Instructionson 44-42-4317Xkxjzofqv Instructions [id number]:127NoKettering Health [facility] Clinical Summaryon [id number] Clinical Summary [place] [id number] ED Clinical Summary Person Information Name: MARTINA MELENDEZ [facility] Age: 29 Years : 1990 Sex: Female Language: Malay PCP: Jerri Dumont MD Marital Status: Single Phone: [phone] Visit Id: Visit Reason: Cough; Fever; FEVER, JUST RETURNED FROM [place] Speciality: Acuity: 3 Enc Type: Emergency Med [...] 19:34:51 11/14/2019 19:34:51 11/14/2019 19:34:51 AD[address]ESS: [address] [facility] [place] [id number] PHYS DOC NOTES: MEDICAL INFORMATION: Prescriptions Given: New Medications [facility] [address], [address] [place], [place] [id number], [phone] albuterol (ProAir HFA 90 mcg/inh inhalation aerosol) 1 Puffs Inhalation every 6 hours as needed forwheezing. Refills: 0. brompheniramine/dextromethorphan/PSE (Bromfed DM oral syrup) 5-10 mL By Mouth 4 times a day as needed for cold symptoms. Refills: 0. PATIENT EDUCATION INFORMATION: Instructions: Viral Infections; Fever, Adult Follow up: With: Address: When: Jerri Dumont [address] [place] [address] Business (1) In 3 days 11/17/2019 DIAGNOSIS: Fever; Viral URINormalFisher Henrico Medical CenterED Patient Education Noteon [id number] Patient Education NoteFamily Medicine Viral Infections A viral infection can [...] coughing. HOME CARE INSTRUCTIONS ? Only take xmzk-ylr-thndjuo or prescription medicines for pain, discomfort, diarrhea, [...] Document Reviewed: 09/17/2011 ExitCare? Patient Information ?2014 [employer]. This information is not intended to replace advice given to you by your health care provider. Make sure you discuss any questions you have with yourhealth care provider. Infectious Disease Fever, Adult A [...] thermometer is positioned as recommended by the technical trainer. ? A rectal temperature is accurate and [...] avoid taking other medicines that also contain acetaminophen.Do not take aspirin for a fever if you are younger than age 19. There is an association with Nadeem'ssyndrome. Nadeem's syndrome is a rare but potentially [...] Document Reviewed: 03/13/2012 ExitCare? Patient Information ?2015 [employer]. This information is not intended to replace advice given to you by your health care provider. Make sure you discuss any questions you have with yourhealth care provider.[facility] Patient Summaryon [id number] Patient Summary [place] [id number] Patient Discharge Instructions Person Information Name: MARTINA MELENDEZ Age: 29 Years [facility]: [phone] Arrival Date: 11/14/2019 18:13:56 Discharge Diagnosis: Fever; Viral URI Primary Care Physician: Jerri Dumont MD Provider Information Primary Provider: Cb Luciano M.D. Advanced Lang Path Therapist:Evangelist Butcher PA-C The exam and treatment you received in the Emergency Department were for an urgent problem and are not intended as complete care. It is important that you follow up with a doctor, nurse practitioner,or physician?s payroll human resources assistant for ongoing care. If your symptoms become worse or you do not improve as expected and you are unable to reach your usual health care provider, you should return to the Emergency Department. We are available 24 hours a day. MARTINA MELENDEZ has been given the following list of patient education materials, prescriptions andfollow-up instructions: Follow-up Instructions: With: Address: When: Jerri Dumont [address] [place], [place] [id number] Business (1) In 3 days 11/17/2019 In the event that this physician does not participate in your insurance network, please consult with your insurance company to find a nearby participating provider. Patient Education Materials: Viral Infections; Fever, Adult A MESSAGE TO ALL PATIENTS REGARDING OPIOIDS PRESCRIPTION OPIOIDS: WHAT YOU NEED TO KNOW Prescription opioids can be used to help relieve wuevprhr-ee-tdntdf pain and are often prescribed following a [...] and have fewer risks and side effects. Optionsmay include: ? Pain relievers such as acetaminophen, [...] unused prescription opioids: Find your community drug take- back program or yourpharmacy mail-back program, or flush them down the toilet, following guidance from the Food and Drug Administration (www.fda.gov/Drugs/ResourcesForYou). ? Visit www.cdc.gov/drugoverdose to learn about the risks of opioids abuse and overdose. ? If you believe you may be struggling with addiction, tell your health health care recruiter and ask for guidance or call SAMHSA?S National Helpline at 2-729-419-XKLM. v Source: US Department of Health and Human Services/Center for Disease Control & Prevention [facility] Medications Given: Medication Dose Route No medications found. Medication Information: New Medications MACY CHAMBERLAIN-Yoni KELLEY, MARYLU Mack [phone], [phone] albuterol (ProAir HFA 90 mcg/inh inhalation aerosol) 1 Puffs Inhalation every 6 hours as needed forwheezing. Refills: 0. brompheniramine/dextromethorphan/PSE (Bromfed DM oral syrup) 5-10 mL By Mouth 4 times a day as needed for cold symptoms. Refills: 0. Comment: Pharmacy Information: Macy Oates , Livia- Ella Thank you for choosing [facility] Patient Education Materials: Viral Infections A [...] coughing. HOME CARE INSTRUCTIONS ? Only take crtn-wnb-oraptnk or prescription medicines for pain, discomfort, diarrhea, [...] Document Reviewed: 09/17/2011 ExitCare? Patient Information ?2015 [employer]. This information is not intended to replace advice given to you by your health care provider. Make sure you discuss any questions you have with yourhealth care provider. Fever, Adult A fever is [...] thermometer is positioned as recommended by the technical trainer. ? A rectal temperature is accurate and [...] avoid taking other medicines that also contain acetaminophen.Do not take aspirin for a fever if you are younger than age 19. There is an association with Nadeem'ssyndrome. Nadeem's syndrome is a rare but potentially [...] Document Reviewed: 03/13/2012 ExitCare? Patient Information ?2014 [employer]. This information is not intended to replace advice given to you by your health care provider. Make sure you discuss any questions you have with yourhealth care provider. AL Estrada KRISTI L , have received the following patient education materials/instructions and have verbalized understanding: Patient Education Materials: Viral Infections; Fever, Adult Follow-up Instructions: With: Address: When: Jerri [place] [place] [address] Business (1) In 3 days 11/17/2019 Patient Signature Date Clinician/Nurse Signature Date 11/14/2019 19:34:53[facility] Note-Nurseon 41-21-1763Gbnhadbq Note-NurseCOVID swab completed and [facility]-NursePatient came into the ER due to intermittent fevers and cough. patient denies nausea, vomiting, or diarrhea. Patient stated [place] just returned from [place]ing. Family in [place] are currently at the hospital due to covid symptoms. Length of stay was a week. returned yesterday.[facility] WestCoding Summary. on 47-79-4188Xvnsjo Summary.CODING DATE: 01/05/2019 FINAL [facility] STATUS: Home (Routine DC) PAYOR: Hood ADMIT [...] By: Arlene Sanchez Date Saved: 01/05/2019 07:23 [facility]NWV[facility] Clinical Summaryon [id number] Clinical Summary [place] [id number] ED Clinical Summary Person Information Name: MARTINA MELENDEZ [facility] Age: 28 Years : 1990 12:00 AM Sex: Female Language: Malay PCP: Jerri Dumont MD Marital Status: Single Phone: [phone] Visit Id: Visit Reason: Rash; SCABIES Speciality: [...] 10:02 PM 01/02/2019 10:02 PM ADDRESS: [address] [facility] Demetrius MCLAUGHLIN MD [phone] PHYS DOC NOTES: MEDICAL INFORMATION: Prescriptions Given: PATIENT EDUCATION INFORMATION: Instructions: Scabies Follow up: With: Address: When: Jerri Tim [address] [place], [place] [id number] Business (1) In 3 days DIAGNOSIS: 1:ScabiesNormalFisher Naamn Medical CenterED Note-Physicianon 08-05-1552YJ Note-PhysicianBasic Information Time Seen: Cb Luciano M.D. 01/02/2019 21:25 Chief Complaint pt. states she thinks her and dtr. got scabies from staying in a hotel while on vacation. rash to b/l arms. History of Present Illness The patient is a 28-year-old female who presented to the emergency with skin rash on her forearms. The patient states that she thinks she has scabies because she's had that in the past. 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 Diagnostic Results No qualifying data available.[facility] WestComment on above: Result Comment: Electronically Signed By: Cb Luciano M.D..br\Date and Time Signed: 01/03/1901:05 EDTED Patient Education Noteon 87-27-9521WH Patient Education NoteFamily Medicine Scabies Scabies are small bugs (mites) [...] kill the mites. If cream is prescribed, massagethe cream into the entire body from the [...] water and then dried in a dryer forat least 20 minutes on high heat. Items that cannot be washed should be enclosed in a plastic bag for at least 3 days. ? To help relieve itching, bathe your child in a cool bath or apply cool washcloths to the affectedareas. ? Your child may return to school after treatment with the prescribed cream. SEEK MEDICAL CARE IF: ? The itching persists longer than 4 weeks after treatment. ? The rash spreads or becomes infected. Signs of infection include red blisters or yellow-zepeda crust. Document Released: 05/13/2006 Document Revised: 08/04/2012 Document Reviewed: 09/21/2009 ExitCare? Patient Information ?2015 [employer]. This information is not intended to replace advice given to you by your health care provider. Make sure you discuss any questions you have with yourhealth care provider.[facility] Patient Summaryon [id number] Patient Summary [place] [id number] Patient Discharge Instructions Person Information Name: MARTINA MELENDEZ Age: 28 Years Arrival Date: 01/02/2019 9:05 PM Discharge Diagnosis: 1:Scabies Primary Care Physician: Jerri Dumont MD Provider Information Primary Provider: Cb Luciano M.D. Advanced Lang Path Therapist:None The exam and treatment you received in the Emergency Department were for an urgent problem and are not intended as complete care. It is important that you follow up with a doctor, nurse practitioner,or physician?s payroll human resources assistant for ongoing care. If your symptoms become worse or you do not improve as expected and you are unable to reach your usual health care provider, you should return to the Emergency Department. We are available 24 hours a day. MARTINA MELENDEZ has been given the following list of patient education materials, prescriptions andfollow-up instructions: Follow-up Instructions: With: Address: When: [place] [address] Business (1) In 3 days In the event that this physician does not participate in your insurance network, please consult with your insurance company to find a nearby participating provider. Patient Education Materials: Scabies A MESSAGE TO ALL PATIENTS REGARDING OPIOIDS PRESCRIPTION OPIOIDS: WHAT YOU NEED TO KNOW Prescription opioids can be used to help relieve tkfhopgq-nw-spjtoi pain and are often prescribed following a [...] and have fewer risks and side effects. Optionsmay include: ? Pain relievers such as acetaminophen, [...] unused prescription opioids: Find your community drug take- back program or [employer] mail-back program, or flush them down the toilet, following guidance from the Food and Drug Administration (www.fda.gov/Drugs/ResourcesForYou). ? Visit www.cdc.gov/drugoverdose to learn about the risks of opioids abuse and overdose. ? If you believe you may be struggling with addiction, tell your health health care recruiter and ask for guidance or call [facility]S National Helpline at 5-520-979-KMIS. v Source: US Department of Health and Human Services/Center for Disease Control & Prevention [facility] Medications Given: Medication Dose Route No medications found. Medication Information: Comment: Pharmacy Information: Thank you for choosing [facility] Patient Education Materials: Scabies Scabies are [...] kill the mites. If cream is prescribed, massagethe cream into the entire body from the [...] water and then dried in a dryer forat least 20 minutes on high heat. Items that cannot be washed should be enclosed in a plastic bag for at least 3 days. ? To help relieve itching, bathe your child in a cool bath or apply cool washcloths to the affectedareas. ? Your child may return to school after treatment with the prescribed cream. SEEK MEDICAL CARE IF: ? The itching persists longer than 4 weeks after treatment. ? The rash spreads or becomes infected. Signs of infection include red blisters or yellow-zepeda crust. Document Released: 05/13/2006 Document Revised: 08/04/2012 Document Reviewed: 09/21/2009 ExitCare? Patient Information ?2014 [employer]. This information is not intended to replace advice given to you by your health care provider. Make sure you discuss any questions you have with yourhealth care provider. IAL KRISTI L , have received the following patient education materials/instructions and have verbalized understanding: Patient Education Materials: Scabies Follow-up Instructions: With: Address: When: [place] [place] [address] Business (1) In 3 days Prescriptions: Patient Signature Date Clinician/Nurse Signature Date 01/02/19 22:02:10[facility] Vital Signs Date TimeVital SignValuePerforming GptztsrjlTwxdeqjc04-83-3536 14:22-0400 Diastolic blood sqftwiff10 mm[Hg]Robert Koch MD Work Phone: [phone]06-26-2025 14:22-0400 Heart rate78 /Devon Koch MD Work Phone: [phone]06-26-2025 14:22-0400 Respiratory rate20 /Devon Koch MD Work Phone: [phone] [place], [place] [address]06-26-2025 14:22-0400 SaO2% (BldA) [Mass fraction]98 %Robert Koch MD Work Phone: [phone] [place], [place] [address]06-26-2025 14:22-0400 Systolic blood akzekudq715 mm[Hg]Robert Koch MD Work Phone: [phone]06-26-2025 12:30-0400 Body asgahp683.02 cmRobert Koch MD Work Phone: [facility]06-26-2025 12:30-0400 Body jcytbh73.5 kgLeisad August HARMAN Work Phone: [facility]06-05-2025 09:30-0400 Body ewzjkl379.02 cmMarietta [facility] Hospital06-05-2025 09:30-0400Body mass index (BMI) [Ratio]24.3 kg/w5DtbhctqjdMarietta Memorial Hospital06-05-2025 09:30-0400Body hqephr48.14 kgMarietta Memorial Hospital06-05-2025 09:30-0400Diastolic blood rpoosuyr49 mm[Hg][facility] 10-29-2024 09:30-0400Heart rate84 /minMarietta Memorial Hospital 10-29-2024 09:30-0400Systolic blood iecoajsv509 mm[Hg][facility]02-11-2025 08:43-0500Body piutqg992 cmStephanie Ramsay INKJET OPERATOR-INTENSIVE CARE MEDICINE SPECIALIST Work Phone: [facility]02-11-2025 08:43-0500Body mass index (BMI) [Ratio]27.46 kg/m0GjndaayStephanie Ramsay INKJET OPERATOR-INTENSIVE CARE MEDICINE SPECIALIST Work Phone: [facility]02-11-2025 08:43-0500Body ppnwud40.31 kgStephanie Ramsay INKJET OPERATOR-INTENSIVE CARE MEDICINE SPECIALIST Work Phone: [facility]01-21-2025 11:28-0500Body utjdkn434 [address]01-21-2025 11:28-0500Body mass index (BMI) [Ratio]27.46 kg/m2Pmh [address] [place], [place] [address]01-21-2025 11:28-0500Body qjzjtu49.[address] [place], [place] 424[address]01-15-2025 13:46-0500Body kjntwo765 cm Ludin Mckeon DO Work Phone: [facility]01-15-2025 13:46-0500Body mass index (BMI) [Ratio]27.1 kg/f1LmzkvtqLudin Mckeon DO Work Phone: [facility] Qctxyp75-78-4995 13:46-0500Body ybplnv04.4 kgLudin Mckeon DO Work Phone: [facility] [employer] Cgsjdf96-91-8061 13:46-0500Diastolic blood nwocxgvi80 mm[Hg]Ludin Mckeon DO Work Phone: [facility] [employer] Ecqnwr25-85-1640 13:46-0500Heart rate 79 /minLudin Mckeon DO Work Phone: [facility] Ofahpi54-44-5053 13:46-0500Systolic blood mm[Hg]Ludin Mckeon DO Work Phone: [facility] Encounters Encounter DateEncounter TypeCare ProviderFacilityStart: 13-70-7876Ezgkdnrvc department patient visitQugreg Monahan LeFacility:[facility] Hospitaltart: 11-30-2024 End: 72-81-9788Aootskcdg encounterElva Matute [facility] Phys[facility] General SurgeryStart: 11-19-2024 End: 43-82-2850gonycoryowSzlxboddlNory ReddyFacility:[facility] Centertart: 36-21-8993Ivi-patient / Non-visitImatarun Koch MD-[facility] Work Phone: Start: 11-18-2024 End: 69-11-6721Zxxrrkk encounter procedureRobert Koch MD-[facility] [place] Work Phone: Start: 11-18-2024 End: 23-81-5641otnmkdjrxrIvjijuenxNory Reddy INKJET OPERATOR Work Phone: [facility] Work Phone: Start: 10-29-2024 End: 54-56-1994mpsmxfppbiMweaooocjKettering Health [facility] Work Phone: Start: 10-29-2024 End: 24-83-1885Qptijga encounter procedureMajor [facility]ician [facility] Work Phone: Start: 09-23-2024 End: 95-93-2290Shrlbmuhf department patient visitKATVERONICA Taniya [facility] HospitalStart: 07-07-2024 End: 23-89-2839Lcziot follow up visit related to original Priyank Ramsay INKJET OPERATOR-INTENSIVE CARE MEDICINE SPECIALIST Work Phone: [facility] Physicians General SurgeryComment on above: Status post laparoscopic cholecystectomy (Primary Dx)Start: 07-07-2024 End: 27-71-0516bozrcrhzycEIEAMPF A SHAKIRParma [facility] Start: 06-23-2024 End: 44-52-3661Hooynxhpqj and management of inpatientVERN D [facility] Hospitaltart: 06-23-2024 End: 28-70-7673Iinljyonzt and management of inpatientMansfield Hospitaltart: 06-16-2024 End: 84-48-1080khvaibsbvuZZRWAMUKaiser Permanente Santa Teresa Medical Centertart: 06-16-2024 End: 80-74-5817Rcskooy encounter procedurePm Pre-Admission Testing [address] [place] [address] - Pre AdmitStart: 06-10-2024 End: 11-15-8489Cibepc outpatient new 45 minutesMichael Pankaj Katzillis DO Work Phone: [facility] Physicians General SurgeryComment on above: Calculus of gallbladder with chronic cholecystitis without obstruction (Primary Dx); History of marijuana use; Quit smoking within past year; Hepatic steatosisStart: 06-10-2024 End: 62-75-3114afwxhgoumfRRAXCRIRichland Center Amb[facility] Start: 05-29-2024 End: 87-21-7027khdpdywwomPTJOOAQSA Taniya [facility] HospitalStart: 05-26-2024 End: 01-38-5550ckhlbiwsbjVPGZXHXVA Taniya [facility] HospitalStart: 05-12-2024 End: 31-18-0374Plmiqltxr department patient visitROBERT W [facility] Hospitaltart: 31-09-4418Sgzmlatkw department patient visitNone Provider Facility:[facility] HospitalStart: 09-28-2021 End: 53-49-4685lekwasjnnnJTBTFHY W TOBEYFacility:H1 Procedures DateProcedureProcedure DetailPerforming ClinicianStart: 11-18-2024 Ultrasonography of abdomenKatya Reddy APRN Work Phone: History of cholecystectomyStatus post laparoscopic cholecystectomyStephanie Ramsay INKJET OPERATOR-INTENSIVE CARE MEDICINE SPECIALIST Work Phone: History of cholecystectomyHx of cholecystectomy Plan of Treatment DateCare ActivityDetailAuthorStart: 26-70-9239Hcypg BMI ScreeningAdult BMI ScreeningLakeHealth Beachwood Medical Center SystemStart: 98-21-7911Yopqjnt ScreeningTobacco ScreeningLakeHealth Beachwood Medical Center SystemStart: 40-34-4868Cglid BMI ScreeningAdult BMI ScreeningLakeHealth Beachwood Medical Center SystemStart: 56-65-9036Bietpqm ScreeningTobacco ScreeningLakeHealth Beachwood Medical Center SystemStart: 91-71-3505Iorhm BMI ScreeningAdult BMI ScreeningLakeHealth Beachwood Medical Center SystemStart: 81-79-1985Zguirjs ScreeningTobacco ScreeningLakeHealth Beachwood Medical Center SystemStart: 18-30-8133Ydrdb BMI ScreeningAdult BMI ScreeningLakeHealth Beachwood Medical Center SystemStart: 44-67-6098Rudzesc ScreeningTobacco ScreeningLakeHealth Beachwood Medical Center SystemStart: 45-02-5022Ivvntledt vaccinationInfluenza VaccineLakeHealth Beachwood Medical Center SystemStart: 25-20-4885LxzoufhcrMarietta Memorial Hospital Start: 07-07-2024 End: 85-39-3099Qnoowgh encounter wwitanlls44/11/2025 9:00 AM EST Office Visit [facility] [address] [place], [id number] Stephanie Ramsay APRN-INTENSIVE CARE MEDICINE SPECIALIST [address] [place] [address] [facility] General SurgeryStart: 06-23-2024 End: 62-54-8094Wjmohisst to same day surgery teffgs2406/23/2024 8:30 AM EST - 06/23/2024 10:00 AM EST Surgery [facility] Surgery [address] [facility] [place] [address] Ludin Mckeon, DO [address] [place] [address] DAVINCI CHOLECYSTECTOMY [47542 (CPT )][facility] - Surgery Comment on above:DAVINCI CHOLECYSTECTOMY [51985 (CPT )]Start: 06-23-2024 End: 07-41-7543Wpnuegpfmi pxvjlwecuhbq08/28/2025 8:30 AM EST Anesthesia Event [facility] - Surgery [address] [facility] [place] [address] Tracey Alvarez, DO [address] [facility] [place] [address] [facility] - SurgeryStart: 06-23-2024 End: 51-13-5829Nrkjlnahowu surg cholecystectomyFREMCENTERPOINTE HOSPITAL SURGERYStart: 06-23-2024 Subsequent hospital visit by datokwpfw52/28/2025 8:30 AM EST Hospital Encounter [facility] - Surgery [address] [place] [address] Ludin Mckeon, DO [address] [place] [address] [facility] - SurgeryStart: 06-16-2024 End: 01-24-1101Hhqjdev encounter uobjhdohl92/21/2025 11:15 AM EST Procedure visit [facility] - Pre Admit [address] [facility] [place] [address] [phone] [facility] - Pre AdmitStart: 09-92-8016Zucsmjzbi vaccinationInfluenza VaccineLakeHealth [facility]wood Medical Center SystemStart: 83-47-4138Argfaghcl for malignant neoplasm of cervixPap SmearLakeHealth Beachwood Medical Center SystemStart: 17-73-3498CUhE,Tdap and Td Vaccines (1 - Tdap)DTaP,Tdap and Td Vaccines (1 - Tdap)[facility] SystemStart: 51-09-6442Wjmku BMI Follow Up PlanAdult BMI Follow Up PlanMaria Parham Healthtart: 74-78-6360Iemavxpycf ScreeningDepression ScreeningLakeHealth Beachwood Medical Center SystemStart: 26-71-3647Caaspaw CounselingTobacco CounselingLakeHealth [facility]wood [facility] System End: 95-91-0735DBR panel - Blood by Automated countCBC without diff Lab Routine Calculus of gallbladder with chronic cholecystitis without obstruction1 Occurrences starting 06/10/2024 until 06/10/2025[facility] Work Phone: Comment on above:1 Occurrences starting 06/10/2024 until 06/10/2025 End: 11-88-3700Omqlkalifvrpl metabolic 2000 panel - Serum or PlasmaComprehensive metabolic panel Lab Routine Calculus of gallbladder with chronic cholecystitis without obstruction 1 Occurrences starting 06/10/2024 until 06/10/2025[facility] SystemComment on above:1 Occurrences starting 06/10/2024 until 06/10/2025 Hepatic function panelMarietta Memorial Hospital End: 70-00-1606Luysdn [Enzymatic activity/volume] in Serum or PlasmaLipase Lab Routine Calculus of gallbladder with chronic cholecystitis without obstruction 1 Occurrences starting 06/10/2024 until 06/10/2025[facility] SystemComment on above:1 Occurrences starting 06/10/2024 until 06/10/2025Patient Education Gastritis Omeprazole Know your [facility] Work Phone: End: 31-71-9352Sircuiha Procedure / SurgeryUnlisted Procedure / Surgery Procedures Routine Calculus of gallbladder with chronic cholecystitis without obstruction 1 Occurrences starting 06/10/2024 until 06/10/2025[facility] SystemComment on above:1 Occurrences starting 06/10/2024 until 06/10/2025US Abdomen limitedOrlando Health [facility] Immunizations Immunization DateImmunizationNotesCare MjzhbagtVxarcbpq73-23-2907nyfdxuqqn virus vaccine, unspecified formulationErin Giovani [facility] Payers DatePayer CategoryPayerPolicy [id number]-[id number] [id number] [id number] 2.840.1.834487.3.57[id number] 2.0.1.678013.3.57[id number] 2.840.1.462349.3.57[id number] 2.0.1.296881.3.57[id number] 2.0.1.211778.3.57[id number] 2.840.1.461826.3.57[id number] 2.840.1.341406.3.57[id number] 2.0.1.494300.3.57[id number] 2.840.1.379605.3.57[id number] 2.840.1.701661.3.57[id number] 2.840.1.478137.3.57[id number] 2.840.1.410157.3.57[id number] 2.840.1.928368.3.579.[id number] Cross Blue Shield Managed Care - [facility] Member Subscriber Plan / Payer (Effective for All Dates) Name: Martina Melendez Relation to Subscriber: Self Name: Martina Melendez Payer ID: [id number] (NAIC) Type: Not on file Address: [facility] [address] [place] [id number] Medicaid[facility] [id number] Social History DateTypeDetailFacilityStart: 79-92-9291Fhxorzo smoking status NHISEx-smoker [facility] SystemHistory of tobacco useCurrent smokerProSelect Medical [facility] SystemHistory of tobacco useCigarette SmokerProSelect Medical [facility] SystemStart: 06-10-2024 End: 17-89-8563Apeoepdyv beverage intakeEx-drinker (finding)ProMsouth [facility] SystemStart: 06-10-2024 End: 95-42-3048Qcbkjcq of Social functionProSelect Medical [facility] SystemStart: 06-10-2024 End: 82-76-4807Ojovzau use panelProSelect Medical [facility] SystemChildcareUnknownPTrumbull [facility] SystemStart: 82-47-7128Mlx assigned at birthNot on fileLakeHealth [facility]wood [facility] SystemStart: 04-20-2015 End: 39-02-4091CakFuwjsd (finding)[facility] [employer] SystemStart: 07-07-2024 End: 21-61-3213Mnqjohj smoking status NHISSmokes tobacco dailyProSelect Medical [facility] SystemHistory of tobacco useTobacco Use Types Packs/Day Years Used Date Smoking Tobacco: Every Day Vaping/E-cigarettesKettering Health TroyTobacco smoking status NHISUnknown if ever smokedBucyrus Community Hospital Work Phone: Start: 19-53-4642Oen Assigned At [facility] Clinical Notes 04-26-2024 to 12-14-2024 Note Date & JixsJxoeDsfkrmix52-37-4318 Note [id number]#1.00[facility]07-19-2025 NoteEducation Materials Endocrinology Lipase Test Why am I having this test? The lipase test is often used to check for problems with the pancreas. Lipase is a protein (enzyme)that is released by the pancreas into the small intestine to help digest a type of fat called triglycerides. You may have this test if your health care provider suspects that you have damage to or infection of your pancreas (pancreatitis). These problems can cause your pancreas to release more lipase. The test is often done along with other blood tests. If you have pain in your abdomen (abdominal pain), your health care provider may use this test to help figure out the cause of your pain. The test can help determine if the pain is related to your pancreas or to other causes. What is being tested? This test measures the amount of lipase in your blood. What kind of sample is taken? A blood sample is required for this test. It is usually collected by inserting a needle into a blood vessel. How do I prepare for this test? ? Do not eat or drink anything except water for 8?12 hours before the test or as told by your health care provider. ? Tell your health care provider about all medicines you are taking, including vitamins, herbs, eyedrops, creams, and cnwc-jug-tvhcaen medicines. How are the results reported? Your test results will be reported as values that indicate the amount of lipase in your blood. Yourhealth care provider will compare your results to normal ranges that were established after testinga large group of people (reference ranges). Reference ranges may vary among labs and hospitals. Forthis test, a common reference range is 0?160 units/L (SI units). What do the results mean? Lipase levels that are higher than the reference range can be seen with many health conditions. These may include: ? Disease of the pancreas. ? Disease of the gallbladder. ? Kidney failure. ? Blockage (obstruction) of the bowel. ? Tissue caused by a lack of blood supply to the bowel (bowel infarction). ? Swelling or infection of salivary glands. ? Peptic ulcer disease. Talk with your health care provider about what your results mean. Questions to ask your health care provider Ask your health care provider, or the department that is doing the test: ? When will my results be ready? ? How will I get my results? ? What are my treatment options? ? What other tests do I need? ? What are my next steps? Summary ? The lipase test is often used to check for problems with the pancreas. Lipase is a protein (enzyme) that is released by the pancreas to help digest a type of fat called triglycerides. ? You may have this test if your health care provider suspects that your pancreas has been damaged or is infected (pancreatitis). Pancreatitis can cause your pancreas to release more lipase. Lipase levels that are higher than normal can indicate other health conditions, too. ? Talk with your health care provider about what your results mean. This information is not intended to replace advice given to you by your health care provider. Make sure you discuss any questions you have with your health care provider. Document Revised: 04/03/2022 Document Reviewed: 04/03/2022 [employer] Patient Education ? 2024 [employer]. Gastroenterology Vomiting, Adult Vomiting is when stomach contents forcefully come out of the mouth. Many people notice nausea before vomiting. Vomiting can make you feel weak and cause you to become dehydrated. Dehydration can make you feel tired and thirsty, cause you to have a dry mouth, and decrease how often you urinate. Older adults and people who have other diseases or a weak body defense system (immune system) are at higher risk for dehydration. It is important to treat vomiting as told by your health care provider. Follow these instructions at home: Watch your symptoms for any changes. Tell your health care provider about them. Eating and drinking Follow these recommendations as told by your health care provider: ? Take an oral rehydration solution (ORS). This is a drink that is sold at pharmacies and retail stores. ? Eat bland, dhmj-ve-ytwsti foods in small amounts as you are able. These foods include bananas, applesauce, rice, lean meats, toast, and crackers. ? Drink clear fluids slowly and in small amounts as you are able. Clear fluids include water, ice chips, low-calorie sports drinks, and fruit juice that has water added (diluted fruit juice). ? Avoid drinking fluids that contain a lot of sugar or caffeine, such as energy drinks, sports drinks, and soda. ? Avoid alcohol. ? Avoid spicy or fatty foods. General instructions ? Wash your hands often using soap and water for at least 20 seconds. If soap and water are not available, use hand milk house worker. ? Make sure that everyone in your househo (more content not included)...[facility] Medical [id number] Miscellaneous Notes* Telephone Encounter - Elva Matute CMA - 11/30/2024 10:56 AM EDT The patient is requesting a copy of her disability paperwork from surgery dated 06/23/24. Showing return to work August 04, 2024. I will send her the paperwork scanned in on 07/20/24, to her email in her chart documented in this encounterKettering Health Troy07-07-2025 Telephone encounter Note* Telephone Encounter - Elva Matute CMA - 11/30/2024 10:56 AM EDT The patient is requesting a copy of her disability paperwork from surgery dated 06/23/24. Showing return to work August 04, 2024. I will send her the paperwork scanned in on 07/20/24, to her email in her chart [facility]06-25-2025 Radiology Diagnostic study noteKETTERING [facility] [place] [address] [place] [address] Ultrasound Report Signed Patient: Martina Melendez MR#: [id number] : 1990 Acct:[id number] Age/Sex: 34 / F ADM Date: 5 Loc: Room: Type: [facility] Attending Dr: Robert Koch MD Ordering Provider: Robert Koch MD Date of Service: 11/18/24 US/US abdomen limited: R11.10 - Vomiting, unspecified Copies to: Robert Koch MD~ LIMITED ABDOMINAL ULTRASOUND: CLINICAL HISTORY: Vomiting weight loss COMPARISON: None TECHNIQUE: Grayscale and color Doppler images of the right upper quadrant organswere obtained. FINDINGS: Pancreas: Visualized portions appear unremarkable. Liver: Unremarkable. Gallbladder: Movement. CBD: 3.3 mm RT KIDNEY: No Hydronephrosis US/US abdomen limited IMPRESSION: NO ACUTE PROCESS. . Impression dictated by: Alvin Akins Jr., D.O. 11/18/2024 10:23 AM Dictation Location: [place] [address] Tech: Orquidea Weinberg Transcribed By: CANDIDA 11/18/24 1023 Dictated By: Alvin Akins Jr, DO 11/18/24 1023 Signed By: 11/18/24 1023 [facility]06-05-2025 Evaluation note* Author Robert Koch [facility] 2024 9:09ui97-pvgt-trf female referred to the GI clinic for evaluation of nausea and vomiting. +recurrent episodes of intractable vomiting since 04/2024. Hot showers improve her symptoms. + Marijuana use Patient stopped marijuana before however that did not improve her symptoms. I explained to the patient that the etiology of her symptoms could be cannabinoid hyperemesis syndrome and I recommended the patient to stop marijuana. Will arrange for EGD for evaluation of intraluminal etiologies of patient's symptoms. Will check CBC LFTs and lipase. Will arrange for ultrasound of the upper abdomen. [facility] Work Phone: [phone] 868-446302-11-2025 History of Present illness Narrative* Stephanie Ramsay APRN-FRANCISCO JAVIER - 07/07/2024 9:00 AM EST 33-year-old female status post robotic assisted laparoscopic cholecystectomy on 06/23/2024. She is doing well and has no concerns. She denies pain other than a little bit around her umbilicus. She denies fever and chills. She is tolerating oral intake and having bowel function. She still reports that once a week she is having nausea/vomiting with bowel movements. She was having this prior to surger y. She has started taking omeprazole 40 mg daily which has helped her nausea. She does vape and smoke marijuana. On exam, abdomen is soft. Lap sites are clean, dry and intact with no signs of infection. No jaundice. Encouraged smoking cessation. No pushing, pulling, lifting over 10 lb for another 4 weeks. Follow up as needed. Final Pathologic Diagnosis Gallbladder, cholecystectomy: Chronic cholecystitis with mild cholesterolosis. SARITHA Loera 07/07/24 0915 documented in this encounterSelect Medical Specialty Hospital - Southeast OhioDialectica Mymich[facility] [id number] Instructions* Patient Instructions* Toña Jimenez RN - 06/16/2024 11:15 AM EST Preoperative Education Checklist- General Surgery date: 06/23/24 Surgery time: 0830 a.m. Arrival time: 0630 a.m. 1. Bring a photo ID and your insurance card with you the day of surgery. You will check in at the main lobby of the [facility]- registration desk is straight ahead as soon as you walk in. Tell them you are here for surgery. 2. If you have a Living Will/Durable Power of Excellence Coach for Health Care that is not on file here, please bring a copy the day of surgery. 3. Please shower/bathe the night before surgery with the provided soap or wipes. Do not shower the morning of surgery- you will do use wipes when you arrive here at the hospital before getting into your surgical gown. Do not shave the area of your procedure for 2 days prior to your surgery. 4. NO powder, lotion, perfume/cologne, aftershave, make-up, deodorant, or hair products after you have bathed. 5. NO nail senegalese/acrylic on at least one finger. If you are having a hand, wrist or foot surgery then all nail senegalese and artificial/acrylic nails must be removed from that hand or foot. 6. Avoid ALL Aspirin and non-steroidal anti-inflammatory drugs and certain vitamins (Ibuprofen, Advil, Aleve, Excedrin, Meloxicam, Celebrex, fish/krill oil, etc.) for 7 days prior to surgery as instructed by your surgeon and/or your prescribing doctor. Tylenol IS ALLOWED. If you are on Ticlid, Xarelto, Eliquis, Pradaxa, Plavix or Coumadin, please check with your prescribing doctor for instructions for when to stop them. 7. If you use an inhaler, continue to use it routinely. 8. Nothing to eat or drink (not even water, gum, mints, or hard candy!) AFTER midnight prior to your surgery. 9. Take only medications that you are instructed to on the morning of surgery with a TINY SIP OF WATER. 10. Choose a responsible adult that will be able to drive you home when you are discharged from your hospital stay for your surgery and can stay with you in your home for 24 hours after your procedure. You must NOT drive any vehicle or operate any machinery for 24 hours after surgery. 11. When you dress for your appointment, please wear loose fitting clothing that is appropriate to accommodate your surgical area procedure. BRING WITH YOU ANY DEVICES YOU MAY NEED: BARB hose, ice machine, sling/swath, brace or special shoe, oversized zip-up or button up shirt, CPAP machine if staying overnight. 12. Do NOT wear jewelry, watches, or any piercings or metal for surgery- leave these valuables and money at home. 13. Do NOT wear contact lenses for surgery- glasses are okay if needed. 14. The anesthesiologist will talk with you the day of surgery and will ask you to sign a Consent Form. 15. Refrain from smoking or any type of tobacco use for at least 8 hours and marijuana for 24 hoursprior to arrival for your surgery. 16. If a GREEN BLOOD band is given to you, please bring it with you for the day of surgery. 17. Notify your surgeon if you develop any illness before your surgery. 18. If you are staying overnight, please DO NOT BRING your home medications with you. 19. If you have any questions prior to surgery, please call the Preadmission Testing office at [phone], Mon.-Fri. 7 a.m.-3 p.m. Leave a voicemail if needed. Pre-Surgery Instructions: Medication Instructions acetaminophen (TYLENOL) 325 mg tablet Stop taking 0 days prior to procedure Lactobacillus acidophilus (PROBIOTIC ORAL) Stop taking 0 days prior to procedure metoclopramide (REGLAN) 10 mg tablet Stop taking 0 days prior to procedure MULTIVITAMIN ORAL Stop taking 0 days prior to procedure omeprazole (PriLOSEC) 40 mg capsule Take morning of procedure PNV no.95/ferrous fum/folic ac ( ORAL) Stop taking 0 days prior to procedure How to Avoid an Infection after Your Surgery Your doctor will give you specific instructions, but remember: -ALWAYS wash hands before caring for your incision. -No picking, scratching, or rubbing your incision. -No creams, lotion, powder, rubbing alcohol or hydrogen peroxide on the incision (can harm the tissue and slow healing). -Your doctor will give you specific instructions for what type of dressing you will need and how often it will need changed for infection purposes. -No tight clothing on incision. -Do not allow anyone to touch your incision unless they are cleaning, checking, or redressing it (be sure they wash their hands first). -No contact of your incision with pets; avoid sleeping with pets. -Take full course of antibiotic if prescribed for you after surgery- do not stop unless directed jennifer your physician. You may also be given an antibiotic prior to your surgery to help prevent surgical site infections. -Eat a healthy and varied diet including proteins, fruits, and vegetables to help promote wound healing and keep blood sugars under control if you are diabetic. -Smoking slows the healing process by decreasing the amount of oxygen in your blood that is needed for tissue healing. Try to avoid or stop smoking if possible. LOOK at your incision each morning and each night to check the progress of healing. Some soreness, numbness, itching and/or mild bruising around the incision is normal. Call your doctor if you noticeany of the following: -Increased redness or hardening around the incision area. -Increased pain at the incision site. -Incision feels hot to the touch. -Swelling or pulling apart of the incision edges. -Yellow or green drainage or foul odor coming from the incision. -Bleeding from the incision (apply pressure as needed). -Fever higher than 101 degrees Fahrenheit for more than 4 hours. SHOWERING: Your doctor will give you specific instructions, but remember: -Be careful getting into and out of the shower. -Showers should be quick (5 minutes or less). -Use a clean washcloth to gently wash your incision with soap and water and pat the area dry with aclean towel. -No re-using wash cloths or towels; get a fresh one to clean your incision. -Do not soak in the bathtub, go swimming or use a hot tub (Jacuzzi), or perform activities where your incision is submerged in water or exposed to any fluids or substances until instructed by your doctor. -If your have the sticky strips (steri-strips) over the incision, it is OK to shower with them. Do not remove them. Let them fall off on their own. If you have a question, call your doctor s office. Go to the follow-up appointment with your doctor. documented in this encounterKettering Health Troy01-21-2025 Miscellaneous Notes* Perioperative Nursing Note - Toña Jimenez RN - 06/16/2024 11:15 AM EST Preoperative Education Checklist- General Surgery date: 06/23/24 Surgery time: 0830 a.m. Arrival time: 0630 a.m. 1. Bring a photo ID and your insurance card with you the day of surgery. You will check in at the main lobby of the [facility]- registration desk is straight ahead as soon as you walk in. Tell them you are here for surgery. 2. If you have a Living Will/Durable Power of Excellence Coach for Health Care that is not on file here, please bring a copy the day of surgery. 3. Please shower/bathe the night before surgery with the provided soap or wipes. Do not shower the morning of surgery- you will do use wipes when you arrive here at the hospital before getting into your surgical gown. Do not shave the area of your procedure for 2 days prior to your surgery. 4. NO powder, lotion, perfume/cologne, aftershave, make-up, deodorant, or hair products after you have bathed. 5. NO nail senegalese/acrylic on at least one finger. If you are having a hand, wrist or foot surgery then all nail senegalese and artificial/acrylic nails must be removed from that hand or foot. 6. Avoid ALL Aspirin and non-steroidal anti-inflammatory drugs and certain vitamins (Ibuprofen, Advil, Aleve, Excedrin, Meloxicam, Celebrex, fish/krill oil, etc.) for 7 days prior to surgery as instructed by your surgeon and/or your prescribing doctor. Tylenol IS ALLOWED. If you are on Ticlid, Xarelto, Eliquis, Pradaxa, Plavix or Coumadin, please check with your prescribing doctor for instructions for when to stop them. 7. If you use an inhaler, continue to use it routinely. 8. Nothing to eat or drink (not even water, gum, mints, or hard candy!) AFTER midnight prior to your surgery. 9. Take only medications that you are instructed to on the morning of surgery with a TINY SIP OF WATER. 10. Choose a responsible adult that will be able to drive you home when you are discharged from your hospital stay for your surgery and can stay with you in your home for 24 hours after your procedure. You must NOT drive any vehicle or operate any machinery for 24 hours after surgery. 11. When you dress for your appointment, please wear loose fitting clothing that is appropriate to accommodate your surgical area procedure. BRING WITH YOU ANY DEVICES YOU MAY NEED: BARB hose, ice machine, sling/swath, brace or special shoe, oversized zip-up or button up shirt, CPAP machine if staying overnight. 12. Do NOT wear jewelry, watches, or any piercings or metal for surgery- leave these valuables and money at home. 13. Do NOT wear contact lenses for surgery- glasses are okay if needed. 14. The anesthesiologist will talk with you the day of surgery and will ask you to sign a Consent Form. 15. Refrain from smoking or any type of tobacco use for at least 8 hours and marijuana for 24 hoursprior to arrival for your surgery. 16. If a GREEN BLOOD band is given to you, please bring it with you for the day of surgery. 17. Notify your surgeon if you develop any illness before your surgery. 18. If you are staying overnight, please DO NOT BRING your home medications with you. 19. If you have any questions prior to surgery, please call the Preadmission Testing office at [phone], Mon.-Fri. 7 a.m.-3 p.m. Leave a voicemail if needed. Pre-Surgery Instructions: Medication Instructions acetaminophen (TYLENOL) 325 mg tablet Stop taking 0 days prior to procedure Lactobacillus acidophilus (PROBIOTIC ORAL) Stop taking 0 days prior to procedure metoclopramide (REGLAN) 10 mg tablet Stop taking 0 days prior to procedure MULTIVITAMIN ORAL Stop taking 0 days prior to procedure omeprazole (PriLOSEC) 40 mg capsule Take morning of procedure PNV no.95/ferrous fum/folic ac ( ORAL) Stop taking 0 days prior to procedure How to Avoid an Infection after Your Surgery Your doctor will give you specific instructions, but remember: -ALWAYS wash hands before caring for your incision. -No picking, scratching, or rubbing your incision. -No creams, lotion, powder, rubbing alcohol or hydrogen peroxide on the incision (can harm the tissue and slow healing). -Your doctor will give you specific instructions for what type of dressing you will need and how often it will need changed for infection purposes. -No tight clothing on incision. -Do not allow anyone to touch your incision unless they are cleaning, checking, or redressing it (be sure they wash their hands first). -No contact of your incision with pets; avoid sleeping with pets. -Take full course of antibiotic if prescribed for you after surgery- do not stop unless directed jennifer your physician. You may also be given an antibiotic prior to your surgery to help prevent surgical site infections. -Eat a healthy and varied diet including proteins, fruits, and vegetables to help promote wound healing and keep blood sugars under control if you are diabetic. -Smoking slows the healing process by decreasing the amount of oxygen in your blood that is needed for tissue healing. Try to avoid or stop smoking if possible. LOOK at your incision each morning and each night to check the progress of healing. Some soreness, numbness, itching and/or mild bruising around the incision is normal. Call your doctor if you noticeany of the following: -Increased redness or hardening around the incision area. -Increased pain at the incision site. -Incision feels hot to the touch. -Swelling or pulling apart of the incision edges. -Yellow or green drainage or foul odor coming from the incision. -Bleeding from the incision (apply pressure as needed). -Fever higher than 101 degrees Fahrenheit for more than 4 hours. SHOWERING: Your doctor will give you specific instructions, but remember: -Be careful getting into and out of the shower. -Showers should be quick (5 minutes or less). -Use a clean washcloth to gently wash your incision with soap and water and pat the area dry with aclean towel. -No re-using wash cloths or towels; get a fresh one to clean your incision. -Do not soak in the bathtub, go swimming or use a hot tub (Jacuzzi), or perform activities where your incision is submerged in water or exposed to any fluids or substances until instructed by your doctor. -If your have the sticky strips (steri-strips) over the incision, it is OK to shower with them. Do not remove them. Let them fall off on their own. If you have a question, call your doctor s office. Go to the follow-up appointment with your doctor. * Perioperative Nursing Note - Toña Jimenez RN - 06/16/2024 11:15 AM EST Hibiclens and surgical instructions reviewed. Patient verbalized understanding. documented in this encounterKettering Health Troy01-21-2025 Nurse Note* Perioperative Nursing Note - Toña Jimenez RN - 06/16/2024 11:15 AM EST Preoperative Education Checklist- General Surgery date: 06/23/24 Surgery time: 0830 a.m. Arrival time: 0630 a.m. 1. Bring a photo ID and your insurance card with you the day of surgery. You will check in at the main lobby of the [facility]- registration desk is straight ahead as soon as you walk in. Tell them you are here for surgery. 2. If you have a Living Will/Durable Power of Excellence Coach for Health Care that is not on file here, please bring a copy the day of surgery. 3. Please shower/bathe the night before surgery with the provided soap or wipes. Do not shower the morning of surgery- you will do use wipes when you arrive here at the hospital before getting into your surgical gown. Do not shave the area of your procedure for 2 days prior to your surgery. 4. NO powder, lotion, perfume/cologne, aftershave, make-up, deodorant, or hair products after you have bathed. 5. NO nail senegalese/acrylic on at least one finger. If you are having a hand, wrist or foot surgery then all nail senegalese and artificial/acrylic nails must be removed from that hand or foot. 6. Avoid ALL Aspirin and non-steroidal anti-inflammatory drugs and certain vitamins (Ibuprofen, Advil, Aleve, Excedrin, Meloxicam, Celebrex, fish/krill oil, etc.) for 7 days prior to surgery as instructed by your surgeon and/or your prescribing doctor. Tylenol IS ALLOWED. If you are on Ticlid, Xarelto, Eliquis, Pradaxa, Plavix or Coumadin, please check with your prescribing doctor for instructions for when to stop them. 7. If you use an inhaler, continue to use it routinely. 8. Nothing to eat or drink (not even water, gum, mints, or hard candy!) AFTER midnight prior to your surgery. 9. Take only medications that you are instructed to on the morning of surgery with a TINY SIP OF WATER. 10. Choose a responsible adult that will be able to drive you home when you are discharged from your hospital stay for your surgery and can stay with you in your home for 24 hours after your procedure. You must NOT drive any vehicle or operate any machinery for 24 hours after surgery. 11. When you dress for your appointment, please wear loose fitting clothing that is appropriate to accommodate your surgical area procedure. BRING WITH YOU ANY DEVICES YOU MAY NEED: BARB hose, ice machine, sling/swath, brace or special shoe, oversized zip-up or button up shirt, CPAP machine if staying overnight. 12. Do NOT wear jewelry, watches, or any piercings or metal for surgery- leave these valuables and money at home. 13. Do NOT wear contact lenses for surgery- glasses are okay if needed. 14. The anesthesiologist will talk with you the day of surgery and will ask you to sign a Consent Form. 15. Refrain from smoking or any type of tobacco use for at least 8 hours and marijuana for 24 hoursprior to arrival for your surgery. 16. If a GREEN BLOOD band is given to you, please bring it with you for the day of surgery. 17. Notify your surgeon if you develop any illness before your surgery. 18. If you are staying overnight, please DO NOT BRING your home medications with you. 19. If you have any questions prior to surgery, please call the Pread[facility] Testing office at [phone], Mon.-Fri. 7 a.m.-3 p.m. Leave a voicemail if needed. Pre-Surgery Instructions: Medication Instructions acetaminophen (TYLENOL) 325 mg tablet Stop taking 0 days prior to procedure Lactobacillus acidophilus (PROBIOTIC ORAL) Stop taking 0 days prior to procedure metoclopramide (REGLAN) 10 mg tablet Stop taking 0 days prior to procedure MULTIVITAMIN ORAL Stop taking 0 days prior to procedure omeprazole (PriLOSEC) 40 mg capsule Take morning of procedure PNV no.95/ferrous fum/folic ac ( ORAL) Stop taking 0 days prior to procedure How to Avoid an Infection after Your Surgery Your doctor will give you specific instructions, but remember: -ALWAYS wash hands before caring for your incision. -No picking, scratching, or rubbing your incision. -No creams, lotion, powder, rubbing alcohol or hydrogen peroxide on the incision (can harm the tissue and slow healing). -Your doctor will give you specific instructions for what type of dressing you will need and how often it will need changed for infection purposes. -No tight clothing on incision. -Do not allow anyone to touch your incision unless they are cleaning, checking, or redressing it (be sure they wash their hands first). -No contact of your incision with pets; avoid sleeping with pets. -Take full course of antibiotic if prescribed for you after surgery- do not stop unless directed jennifer your physician. You may also be given an antibiotic prior to your surgery to help prevent surgical site infections. -Eat a healthy and varied diet including proteins, fruits, and vegetables to help promote wound healing and keep blood sugars under control if you are diabetic. -Smoking slows the healing process by decreasing the amount of oxygen in your blood that is needed for tissue healing. Try to avoid or stop smoking if possible. LOOK at your incision each morning and each night to check the progress of healing. Some soreness, numbness, itching and/or mild bruising around the incision is normal. Call your doctor if you noticeany of the following: -Increased redness or hardening around the incision area. -Increased pain at the incision site. -Incision feels hot to the touch. -Swelling or pulling apart of the incision edges. -Yellow or green drainage or foul odor coming from the incision. -Bleeding from the incision (apply pressure as needed). -Fever higher than 101 degrees Fahrenheit for more than 4 hours. SHOWERING: Your doctor will give you specific instructions, but remember: -Be careful getting into and out of the shower. -Showers should be quick (5 minutes or less). -Use a clean washcloth to gently wash your incision with soap and water and pat the area dry with aclean towel. -No re-using wash cloths or towels; get a fresh one to clean your incision. -Do not soak in the bathtub, go swimming or use a hot tub (Jacuzzi), or perform activities where your incision is submerged in water or exposed to any fluids or substances until instructed by your doctor. -If your have the sticky strips (steri-strips) over the incision, it is OK to shower with them. Do not remove them. Let them fall off on their own. If you have a question, call your doctor s office. Go to the follow-up appointment with your doctor. [facility] [employer] [id number] Nurse Note* Perioperative Nursing Note - Toña Jimenez RN - 06/16/2024 11:15 AM EST Hibiclens and surgical instructions reviewed. Patient verbalized understanding. [facility]01-15-2025 History of Present illness Narrative* Ludin Lira Kay, DO - 06/10/2024 1:45 PM EST Images from the original note were not included. [facility] GENER[facility] SURGERY [facility] [place] [facility] [id number] CONSULT NOTE CHIEF COMPLAINT Chief Complaint Patient presents with Abdominal Pain Right upper quadrant pain, nausea, hepatic steatosis, gallbladder sludge, PMH ER 05/12/24 Martina Melendez is a 33 y.o. female who presents with complaints of epigastric and right upper quadrant abdominal pain after she went to the [facility] Emergency room in April as well [facility] Emergency room on the same day. She was told to have a gallbladder ultrasound which shehad done on May 31 and it showed hepatic steatosis and increased hepatic echogenicity compatible with hepatocellular disease secondary to steatosis most likely as well as gallbladder sludge layering stones but no wall thickening. She denies any fevers but has occasional chills. She rated the pain as a 10/10 and described it as a vein pulsating and sometimes as muscle spasms and vomiting. She quit smoking cigarettes 1-1/2 weeks ago prior to that she smoked tobacco for 20 years. Her last attack with a few days ago when she went to [employer] and had a breakfast sandwich which contained ray as well as the donuts and then she had nausea and vomiting afterwards. She smokes marijuana in order to sleep. 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 She had taken phentermine by prescription from [facility] in [place] last year sometime in lost 80 lb. She also used to drink alcohol until 2 months ago;She only drinks a cup of coffee once every 2-3 days. She has tried Pepto-Bismol for the symptoms and threw up. She has not tried any mceh-rcy-gpktixf antacids. She denies any melena hematochezia or hematemesis. She denies any past history of ulcer disease or gastritis. She also related to me that she had a past colonoscopy in 2014 or 14 and it was noted to be normal. Reason for Exam RUQ PAIN Dx: RUQ pain [R10.11 (ICD-10-CM)] PACS Images Show images for Ultrasound abdomen limited Ultrasound abdomen limited Order: [id number] Status: Final result Visible to patient: Yes (seen) Next appt: None Dx: RUQ pain 0 Result Notes Details Reading Physician Reading Date Result Priority Placido Teixeira MD [phone] 05/31/2024 Routine Narrative & Impression ABDOMEN LIMITED ULTRASOUND HISTORY: Right upper quadrant pain COMPARISON: None FINDINGS: Pancreas: Visualized portions of the pancreatic head and body are unremarkable. Diffusely increased hepatic echogenicity compatible with hepatocellular disease, probably secondaryto steatosis. Within these limits, no focal hepatic lesion. No intrahepatic biliary dilatation. Gallbladder sludge, tiny layering stones, no wall thickening, no adjacent fluid. Common duct measures 1 mm, within normal limits for patient's provided age. No visualized ascites. IMPRESSION: 1. Findings of hepatic steatosis. 2. Gallbladder sludge, tiny layering stones, no wall thickening, no adjacent fluid. Finalized by Placido Teixeira MD on 05/31/2024 1:58 PM Exam Ended: 05/29/24 13:54 EST Last Resulted: 05/31/24 13:58 EST MEDICATION Current Outpatient Medications: acetaminophen (TYLENOL) 325 mg tablet, Take 2 tablets (650 mg total) by mouth daily as needed for pain., Disp: , Rfl: Lactobacillus acidophilus (PROBIOTIC ORAL), Take by mouth. Take one gummy by mouth once daily, Disp: , Rfl: MULTIVITAMIN ORAL, Take by mouth. Take one gummy by mouth daily, Disp: , Rfl: omeprazole (PriLOSEC) 40 mg capsule, Take 1 capsule (40 mg total) by mouth every morning before breakfast., Disp: , Rfl: PNV no.95/ferrous fum/folic ac ( ORAL), Take 1 tablet by mouth daily as needed. Gummy, Disp: , Rfl: metoclopramide (REGLAN) 10 mg tablet, Take 1 tablet (10 mg total) by mouth every 6 (six) hours. (Patient not taking: Reported on 06/10/2024), Disp: 30 tablet, Rfl: 0 ALLERGY No Known Allergies MEDICAL HISTORY Past Medical History: Diagnosis Date ADHD Anemia temporary Fatty liver Osteoarthritis SURGICAL HISTORY Past Surgical History: Procedure Laterality Date SECTION COLONOSCOPY WISDOM TOOTH EXTRACTION SOCIAL HISTORY Social History Socioeconomic History Marital status: Single Spouse name: Not on file Number of children: Not on file Years of education: Not on file Highest education level: Not on file Occupational History Not on file Tobacco Use Smoking status: Former Current packs/day: 0.25 Types: Cigarettes Smokeless tobacco: Not on file Vaping Use Vaping status: Every Day Substances: Nicotine Substance and Sexual Activity Alcohol use: Not Currently Drug use: Yes Types: Marijuana Sexual activity: Not Currently Other Topics Concern Not on file Social History Narrative Not on file Social Drivers of Health Financial Resource Strain: Not on file Food Insecurity: No Food Insecurity (06/10/2024) Hunger Screening Food Insecurity - Worry: Never True Food Insecurity - Inability: Never True Transportation Needs: Not on file Physical Activity: Not on file Stress: Not on file Social Connections: Not on file Interpersonal Safety: Not on file Housing Instability: Not on file FAMILY HISTORY Family History Problem Relation Age of Onset Arthritis Mother Osteoarthritis Father REVIEW OF SYSTEMS: Constitutional: Denies fevers, denies recent illnesses. Eyes: Denies any vision changes. ENT: Denies any throat pain. Neck: Denies any neck pain. Cardiovascular denies chest pain. Denies palpitations. Respiratory: Denies shortness of breath, denies cough, denies history of asthma or any other pulmonary illnesses. Gastrointestinal: See chief complaint Genitourinary negative for dysuria hematuria urinary frequency or urgency. Musculoskeletal: Negative for extremity pains or joint discomfort. Neurologic: No change in sensation or paresthesias or history of seizure disorder skin: No rashes. Hematologic: No anemia. No purpura. No petechiae and no prolonged or excessive bleeding Allergic and immunologic: No pruritus. No swelling. Endocrine: No unexplained weight loss. No polydipsia. No polyuria. No polyphagia. PHYSICAL EXAM Constitutional: She is oriented to person, place, and time. Vital signs are normal. She appears well-developed and well-nourished. HEENT: Head: Normocephalic and atraumatic. Eyes: Conjunctivae, EOM and lids are normal. Neck: Trachea normal. Neck supple. No thyroid mass present. Cardiovascular: Normal rate and regular rhythm. Pulmonary/Chest: Effort normal and breath sounds normal. Abdominal: Soft. Normal appearance. She exhibits no distension and no mass. There is no hepatosplenomegaly or splenomegaly. There is negative Corrales's sign. Minimal epigastric tenderness; No hernia. Musculoskeletal: Normal range of motion. Lymphadenopathy: She has no cervical adenopathy. Neurological: She is alert and oriented to person, place, and time. Skin: Skin is warm, dry and intact. Psychiatric: She has a normal mood and affect. Her speech is normal and behavior is normal. Cognition and memory are normal. IMPRESSION 1. Chronic cholecystitis with cholelithiasis without obstruction 2. Past history of tobacco use 3. History of cannabis use 4. Hepatic steatosis/fatty liver ASSESSMENT & PLAN 1. Continued weight loss is recommended 2. Robotic/Laparoscopic cholecystectomy with possible open cholecystectomy. I discussed the risks, benefits, and alternatives to surgery, which may include infection, bleeding, bile duct injury, intestinal injury, blood clots in legs or lungs, pneumonia, heart attack, and/or . Patient voices understanding and wishes to proceed. 3. Spoke to her about fatty liver and possible SINCLAIR and that it is important to continue to lose weight so that she can reverse that. She also understands that after removing the gallbladder she might have more frequent bowel movements. I recommend she continue taking her omeprazole 40 mg daily. Evaluation included: Preparing to see the patient (e.g., review of tests) Obtaining and/or reviewing separately obtained history Performing a medically appropriate examination and/or evaluation Counseling and educating the patient/family/caregiver Referring and communicating with other health home health care case manager Calculus of gallbladder with chronic cholecystitis without obstruction [K80.10] Ludin Mckeon DO This note was created with the assistance of a speech recognition program. While intending to generate a timely document that accurately reflects the content of the visit, no guarantee can be provided that every grammatical or spelling mistake has been or will be identified or corrected. Thank you for your understanding. documented in [facility]odefast12-17-[facility] NoteXR CHEST 1 VW Procedure: Chest x-ray performed Number of views:1 History:Shortness of breath Comparison:None Findings: The heart and lungs show no acute findings, and the mediastinum and kal are grossly negative . Impression: 1. No acute change. Finalized by Vikas Romero MD on 05/12/2024 10:12 [facility] 05-12-2024 NoteEducation Materials Gastroenterology Vomiting, Adult Vomiting is when stomach contents forcefully come out of the mouth. Many people notice nausea before vomiting. Vomiting can make you feel weak and cause you to become dehydrated. Dehydration can make you feel tired and thirsty, cause you to have a dry mouth, and decrease how often you urinate. Older adults and people who have other diseases or a weak body defense system (immune system) are at higher risk for dehydration. It is important to treat vomiting as told by your health care provider. Follow these instructions at home: Watch your symptoms for any changes. Tell your health care provider about them. Eating and drinking Follow these recommendations as told by your health care provider: ? Take an oral rehydration solution (ORS). This is a drink that is sold at pharmacies and retail stores. ? Eat bland, dqxm-bh-bbrpde foods in small amounts as you are able. These foods include bananas, applesauce, rice, lean meats, toast, and crackers. ? Drink clear fluids slowly and in small amounts as you are able. Clear fluids include water, ice chips, low-calorie sports drinks, and fruit juice that has water added (diluted fruit juice). ? Avoid drinking fluids that contain a lot of sugar or caffeine, such as energy drinks, sports drinks, and soda. ? Avoid alcohol. ? Avoid spicy or fatty foods. General instructions ? Wash your hands often using soap and water for at least 20 seconds. If soap and water are not available, use hand milk house worker. ? Make sure that everyone in your household washes their hands frequently. ? Take zfhv-lkz-iyepxmz and prescription medicines only as told by your health care provider. ? Rest at home while you recover. ? Watch your condition for any changes. ? Keep all follow-up visits. This is important. Contact a health care provider if: ? Your vomiting gets worse. ? You have new symptoms. ? You have a fever. ? You cannot drink fluids without vomiting. ? You feel light-headed or dizzy. ? You have a headache. ? You have muscle cramps. ? You have a rash. ? You have pain while urinating. Get help right away if: ? You have pain in your chest, neck, arm, or jaw. ? Your heart is beating very quickly. ? You have trouble breathing or you are breathing very quickly. ? You feel extremely weak or you faint. ? Your skin feels cold and clammy. ? You feel confused. ? You have persistent vomiting. ? You have vomit that is bright red or looks like black coffee grounds. ? You have stools (feces) that are bloody or black, or stools that look like tar. ? You have a severe headache, a stiff neck, or both. ? You have severe pain, cramping, or bloating in your abdomen. ? You have signs of dehydration, such as: ? Dark urine, very little urine, or no urine. ? Cracked lips. ? Dry mouth. ? Sunken eyes. ? Sleepiness. ? Weakness. These symptoms may be an emergency. Get help right away. Call 911. ? Do not wait to see if the symptoms will go away. ? Do not drive yourself to the hospital. Summary ? Vomiting is when stomach contents forcefully come out of the mouth. Vomiting can cause you to become dehydrated. ? It is important to treat vomiting as told by your health care provider. Follow your health care provider's instructions about eating and drinking. ? Wash your hands often using soap and water for at least 20 seconds. If soap and water are not available, use hand milk house worker. ? Watch your condition for any changes and for signs of dehydration. ? Keep all follow-up visits. This is important. This information is not intended to replace advice given to you by your health care provider. Make sure you discuss any questions you have with your health care provider. Document Revised: 11/17/2021 Document Reviewed: 11/17/2021 [employer] Patient Education ? 2023 [employer] Abdominal Pain, Adult Many things can cause belly (abdominal) pain. In most cases, belly pain is not a serious problem and can be watched and treated at home. But in some cases, it can be serious. Your doctor will try to find the cause of your belly pain. Follow these instructions at home: Medicines ? Take kawy-xcc-eparqpv and prescription medicines only as told by your doctor. ? Do not take medicines that help you poop (laxatives) unless told by your doctor. General instructions ? Watch your belly pain for any changes. Tell your doctor if the pain gets worse. ? Drink enough fluid to keep your pee (urine) pale yellow. Contact a doctor if: ? Your belly pain changes or gets worse. ? You have very bad cramping or bloating in your belly. ? You vomit. ? Your pain gets worse with meals, after eating, or with certain foods. ? You have trouble pooping or have watery poop for more than 2?3 days. ? You are not hungry, or (more content not included)...[facility] 04-26-2024 Evaluation note* Author Robert Koch [facility] HospitalAuthoredJune 2024 [id number] female referred to the GI clinic for evaluation of nausea and vomiting. +recurrent episodes of intractable vomiting since 04/2024. Hot showers improve her symptoms. + Marijuana use Patient stopped marijuana before however that did not improve her symptoms. I explained to the patient that the etiology of her symptoms could be cannabinoid hyperemesis syndrome and I recommended the patient to stop marijuana. Will arrange for EGD for evaluation of intraluminal etiologies of patient's symptoms. Will check CBC LFTs and lipase. Will arrange for ultrasound of the upper abdomen. [facility] Work Phone: Evaluation note* Diagnosis Calculus of gallbladder with chronic cholecystitis without obstruction- Primary History of marijuana use Quit smoking within past year Hepatic steatosis Other chronic nonalcoholic liver disease [facility] Diagnosis Status post laparoscopic cholecystectomy- Primary Other postprocedural status [facility] Discharge instructions Additional Instructions DISCHARGE INSTRUCTIONS FOR UPPER ENDOSCOPY WHAT TO EXPECT: - You may feel full, gassy or cramping after your procedure. In some cases, this may be from a few hours to a day. Walking may help relieve the discomfort. - Your throat may feel sore today from the scope that the doctor passed through your throat to visualize your stomach. Take a throat lozenge or suck on ice to ease the discomfort. - You may notice some streaks of blood in your sputum if the doctor has taken a biopsy. - You should begin to recover from anesthesia within 1 hour of the procedure, however may feel groggy for the next 24 hours. DO's AND DON'Ts: - Call your doctor right away if you have a hard abdomen, severe pain, vomiting or if you cough up large amounts of blood. - Call your doctor if you develop any rashes, hives or difficulty breathing. - If you take 81 mg aspirin for your heart it is safe to resume this medication. - If you take other blood thinner medications your doctor will instruct you when these can safely be resumed. - Do NOT drive for 24 hours. - Do NOT operate machinery such as power tools, lawn mowers, snow blowers, sewing machines, etc. for 24 hours. - Avoid alcoholic beverages and drugs for allergies, nerves, or sleep. - Do NOT stay alone. Do NOT leave your child unattended. - Do NOT make important personal or business decisions or sign any legal documents. - Eat solid foods and drink liquids in smaller amounts than usual until normal appetite returns. If you should experience an upset stomach, liquids high in sugar content (soda, Jose-Aid, non-acid juices) are recommended. - Do NOT smoke. - Do take it easy today. You need not stay in bed, but avoid strenuous activities such as jogging or working out. FOLLOW UP & RECOMMENDATIONS: -Notify the doctor if you have any problems. - Start omeprazole 40 mg daily -Office number [phone]. [facility] Work Phone: InstructionsNot on filedocumented in this encounter [facility] HospitalFL[facility] Micro SystemInstructionsNot on filedocumented in this encounter [facility] HospitalFL[facility] Micro SystemInstructionsNot on filedocumented in this encounter [facility] HospitalFLX Micro SystemReason for referral (narrative)No reason for referral information availableAultman Alliance Community Hospital Work Phone: Summary Purpose Family History No Family History Records Found Relationship Condition Age at Onset Recorded Date/T kenroy Not Specified No pertinent family history Unknown Advance Directives No Advanced Directives Records Found Advance Directive Response Recorded Date/ Time Advance Directives No September 08 1:17pm Chief Complaint and Reason for Visit Chief Complaint Admit Date Refer: nausea/vomiting October 29, 2024 8: 53am R11.10 November 18, 2024 9:04 am Reason for Visit Admit Date Cannabinoid hyperemesis syndrome October 8:53am Vomiting October 29, 2024 8:53a m Chief Complaint Admit Date Refer: nausea/vomiting October 29, 2024 8: 53am Chief Complaint Admit Date Refer: nausea/vomiting October 29, 2024 8: 53am R11.10 November 18, 2024 9:04 am nausea/vomiting November 19, 2024 12:0 2pm Additional Source Comments INFORMATION SOURCE (unrecogn ized section and content) DATE CREATED AUTHOR 12/12/2019 [facility] DATE CREATED AUTHOR AUTHOR'S ORGANIZ ATION 09/29/2021 [facility] DATE CREATED AUTHOR AUTHOR'S ORGANIZ ATION 07/09/2024 [facility] DATE CREATED AUTHOR AUTHOR'S ORGANIZ ATION 10/25/2024 [facility] DATE CREATED AUTHOR AUTHOR'S ORGANIZ ATION 12/03/2024 [facility] DATE CREATED AUTHOR AUTHOR'S ORGANIZ ATION 12/18/2024 [facility] Reason for Visit (unrecogniz ed section and content) ReasonCommentsAbdominal PainRight upper quadrant pain, nausea, hepatic steatosis, gallbladder sludge, PMH ER 05/12/24ReasonCommentsPOST-OP VISITPOST OP ROBOTIC CHOLECYSTECTOMY PERFORMED 06/23/24 AT [facility] Care Teams (unrecognized sec tion and content) Team MemberRelationshipSpecialtyStart DateEnd Date Katya Reddy APRN-CNP [address] [place] [id number] PCP - GeneralNurse Practitioner06/02/24Team MemberRelationshipSpecialtyStart Date End Date Katya Reddy APRN-CNP [address] [place] [phone] PCP - GeneralNurse Practitioner06/02/24Team MemberRelationshipSpecialtyStart Date End Date Katya Reddy APRN-CNP [address] [place] [phone] PCP - GeneralNurse Practitioner06/02/24 Team Status: Active Member Role Status Dates Katya Reddy APRN CONTRACTS REPRESENTATIVE-C Primary Care Provide r Active Team Status: Inactive Member Role Status Dates Robert Koch MD Attending Provider Active Start: October 29, 2024 End: October 29, 2024Katya Reddy APRN CONTRACTS REPRESENTATIVE-CPrimary Care Provider, Referring ProviderActiveStart: October 29, 2024 End: October 29, 2024 Team Status: Inactive Member Role Status Dates Robert Koch MD Attending Provider Active Start: October 29, 2024 End: October 29, 2024Katya Reddy APRN CONTRACTS REPRESENTATIVE-CPrimary Care ProviderActive Start: October 29, 2024 End: October 29, 2024Katya Reddy APRN CONTRACTS REPRESENTATIVE-CReferring ProviderActive Start: October 29, 2024 End: October 29, 2024 Team Status: Inactive Member Role Status Dates Katya Reddy APRN CONTRACTS REPRESENTATIVE-C Primary Care Provide r Active Start: November 18, 2024 End: November 18, 2024Melissa Resendez ProviderActiveStart: November 18, 2024 End: November 18, 2024 Team Status: Active Member Role Status Dates Katya Reddy APRN CONTRACTS REPRESENTATIVE-C Primary Care Provide r Active Start: November 19, 2024 Melissa Resendez ProviderActiveStart: November 19, 2024 Robert Koch MDOther ProviderActiveStart: November 19, 2024 Team MemberRelationshipSpecialtyStart DateEnd Date Katya Reddy APRN-CNP [address] [place] [address] PCP - GeneralNurse Practitioner06/02/24 Goals (unrecognized section and content) Goals may be documented in a n alternate section FOR RECORDS PERTAINING TO PATIENTS WHO ARE [...] BE BASED ON THE PRIMARY CLINICAL RECORDS. [facility] provides no warranty or guarantee of the accuracy or completeness of information in this document.
--- OUTSIDE RECORDS SUMMARY | 2025-05-22 21:27 | XMS_ITS | Clinical Summary ---
Author Organization [employer] tem Address [id number] [address] [place] [address] Care Team Providers Care Industrial Locomotive Operator Name Role Phone Katya Reddy SHADOWGRAPH OPERATOR-AMMONIA BOX TENDER Primary Care Pro vider Allergies No known active allergies Medications MedicationSigDispense QuantityRefillsLast FilledStart DateEnd DateStatus acetaminophen (TYLENOL) 325 mg tablet Take 2 tablets (650 mg total) by mouth daily as needed for pain.Active omeprazole (PriLOSEC) 40 mg capsule Take 1 capsule (40 mg total) by mouth every morning before breakfast.06/10/2024 Active MULTIVITAMIN ORAL Take by mouth. Take one gummy by mouth dailyActive Lactobacillus acidophilus (PROBIOTIC ORAL) Take by mouth. Take one gummy by mouth once dailyActive ibuprofen (ADVIL,MOTRIN) 200 mg tablet Take 1 tablet (200 mg total) by mouth 3 (three) times a day.Active busPIRone (BUSPAR) 10 mg tablet Take 1 tablet (10 mg total) by mouth 3 (three) times a day.Active valACYclovir (VALTREX) 500 mg tablet Take 1 tablet (500 mg total) by mouth in the morning and 1 tablet (500 mg total) before bedtime.Active Active Problems No known active problems Family History Medical HistoryRelationNameCommentsOsteoarthritisFatherArthritisMotherRelation NameStatusCommentsFatherAliveMotherAlive Social History Tobacco UseTypesPacks/DayYears UsedDateSmoking Tobacco: Every Day Vaping/E-cigarettes Tobacco Cessation:Ready to Q uit: Not Asked; Counseling Given: Not Answered Alcohol UseStandard Drinks/WeekCommentsNot Currently0 (1 standard drink = 0.6 oz pure alcohol)ChildcareAnswerDate OqqyerhdVjarbwzlyHlzdeps52/12/2019Employment AnswerDate KhgxpjdlPxwkkwidtpZcvvgak23/12/2019Hunger ScreeningAnswerDate RecordedWithin the past 12 months we worried whether our food would run out before we got money to buy more.Never True09/23/2024Within the past 12 months the food we bought just didn't last and we didn't have money to get more.Never True09/23/2024CommentsNoSex and Gender InformationValueDate RecordedSex Assigned at BirthNot on fileLegal UabUydeev82/25/2015 11:55 AM ESTGender IdentityNot on fileSexual OrientationNot on file Last Filed Vital Signs Vital SignReadingTime TakenCommentsBlood Syoqyhhb797/7309/23/2024 3:00 PM EDT Mgsty748909/23/2024 3:15 PM NPOCpmhdohrshk23.6 ??C (97.8 ??F)09/23/2024 9:24 AM EDTRespiratory Mnwt485009/23/2024 3:15 PM EDTOxygen Hnlukbolzp51%09/23/2024 3:15 PM EDTInhaled Oxygen Concentration--Vofstn48.6 kg (138 lb)09/23/2024 9:24 AM EDT Isqyyv871 cm (5' 3 )09/23/2024 9:24 AM EDTBody Mass Index24.45009/23/2024 9:24 AM EDT Plan of Treatment Health MaintenanceDue DateLast DoneCommentsTobacco Nkacxxulfc29/15/1989 Depression Sgmgmylkv91/15/2001DTaP,Tdap and Td Vaccines (1 - Tdap)08/09/2007Pap Smear2009Influenza Ligaxyi94dult BMI Screening Tobacco Rooqczaxn91 Medical Devices Not on file Insurance Care Teams Team MemberRelationshipSpecialtyStart DateEnd Date Katya Reddy, SHADOWGRAPH OPERATOR-AMMONIA BOX TENDER [address] [place] [phone] PCP - GeneralNurse Practitioner06/02/24
--- OUTSIDE RECORDS SUMMARY | 2025-05-22 21:27 | XMS_ITS | Patient Health Record ---
Author Organization [employer] Address [address] [place] [address] Care Team Providers Care Product Support Manager Name Role Phone Bandar Pemberton Primary Care Provider Reason For Referral No Information Problems Problem Type SNOMED Code ICD Code Onset Dates Problem Status W/U Status Risk Notes Problem Malaise and fatigue (569439275) Other mal aise and fatigue (780.79) ActiveconfirmedProblemAbdominal pain (41405854)Abdominal pain, unspecified site (789.00)Activeconfirmed Plan Of Treatment No Information Insurance Providers Payer Name Payer Address Payer Phone Subscriber Number Group Number Insured Name Patient Relationship to Insured Coverage Start Date Coverage End Date Person [facility] [address] [place] [address] [id number] FRANCISCO MELENDEZJacoblyn - patient is the [id number] 2020zMEDICAID [facility] after [place]- termed [address] [place] [id number] ALFRANCISCOLauramatheus - patient is the [id number] 2020 Medical (General) History Medical History History ICD Code LEVEL 1 Surgical History Surgery Date(Month/Year)
[2025-05-22] MEDS: IBUPROFEN 400 MG TABLET 800 MG PO (21:36)
[2025-05-22 21:38] LABS: SARS-CoV-2 Ag NEGATIVE (NEGATIVE)
[2025-05-22] MEDS: ONDANSETRON 4 MG RAPDIS TABLET SL (21:38)
--- NOTE | 2025-05-22 21:44 | ED.GENADUL1 ---
HPI HPI - General Adult General Chief complaint: Upper Respiratory Infection Stated complaint: CHEST PAIN, SOB, COUGH Time Seen by Provider: 05/22/25 21:20 Source: patient Mode of arrival: walk-in Limitations: no limitations History of Present Illness HPI narrative: cc -flulike symptoms Patient complains of nasal congestion, cough, sore throat, diffuse achiness that began several days ago. She has several ill contacts at home with similar symptoms on a similar timeline. She has some nausea but no vomiting or diarrhea. No chest pain. She admits to some exertional shortness of breath. Low-grade fever. She took Motrin around 9 AM and has tried some qlex-bmi-agaihkj cough medicine that may or may not have Tylenol in it -last taken this afternoon. She left work because she was feeling weak in association with her symptoms. No syncope or near syncope. No headache or blurred vision. No numbness, tingling or focal weakness. Related Data Home Medications ?Medication ?Instructions ?Recorded ?Confirmed aripiprazole 10 mg tablet 10 mg PO BEDTIME 05/22/25 05/22/25 buspirone 15 mg tablet 15 mg PO DAILY 05/22/25 05/22/25 hydroxyzine pamoate 25 mg capsule 25 mg PO Q8H PRN anxiety 05/22/25 05/22/25 lamotrigine 100 mg tablet 100 mg PO DAILY 05/22/25 05/22/25 lisdexamfetamine 50 mg capsule 50 mg PO DAILY 05/22/25 05/22/25 valacyclovir 1 gram tablet 1,000 mg PO DAILY 05/22/25 05/22/25 Allergies Allergy/AdvReac Type Severity Reaction Status Date / Time No Known Drug Allergies Allergy Verified 05/22/25 21:12 Opioid HPI Opioid Management Most Recent Opioid Data: Last Pain Scale 6 Today, 21:36 Last MAR Pain Assessment Today, 21:36 PFSH PFSH Social History Little interest or pleasure in doing things: not at all Feeling down, depressed, or hopeless: not at all Exam Narrative Exam Narrative: Nurses notes and vital signs reviewed and patient is not hypoxic. afebrile General: Well-appearing and in no apparent distress. Skin: Warm, dry, no pallor noted. No rash. Head: Normocephalic, atraumatic. Neck: Supple, non-tender. No meningismus. No cervical lymphadenopathy. Eye: Pupils are equal, round and EOMI. No scleral icterus. Ears, Nose, Mouth, and Throat: TM are clear, nasal mucosal hypertrophy, mild posterior oropharynx erythema without exudate, uvula is mid-line, Oral mucosa is moist Cardiovascular: Tachycardia. Respiratory: No accessory muscle use or respiratory distress. Lungs are clear to auscultation, no wheezing, rales or rhonchi Musculoskeletal: normal ROM Neurological: A&O x4. No cranial nerve dysfunction observed. No truncal ataxia. Moves all extremities. Sensation intact. Psychiatric: Cooperative and interactive. Normal mood and affect. Constitutional Vital Signs, click to edit/add: Last Vital Signs Temp 100.3 F 05/22/25 21:12 Pulse 103 H 05/22/25 21:12 Resp 18 05/22/25 21:12 BP 140/88 05/22/25 21:12 Pulse Ox 99 05/22/25 21:12 O2 Del Method Room Air 05/22/25 21:12 Course Vital Signs Vital signs: Vital Signs Temperature 100.3 F 05/22/25 21:12 Pulse Rate 103 H 05/22/25 21:12 Respiratory Rate 18 05/22/25 21:12 Blood Pressure 140/88 05/22/25 21:12 Pulse Oximetry 99 05/22/25 21:12 Oxygen Delivery Method Room Air 05/22/25 21:12 Temperature 100.3 F 05/22/25 21:12 Pulse Rate 103 H 05/22/25 21:12 Respiratory Rate 18 05/22/25 21:12 Blood Pressure 140/88 05/22/25 21:12 Pulse Oximetry 99 05/22/25 21:12 Oxygen Delivery Method Room Air 05/22/25 21:12 Medical Decision Making MDM Narrative Medical decision making narrative: The patient tested positive for influenza A. We discussed the treatment for this. Conservative therapy, increase fluid intake, Tylenol Motrin, rest. Work excuse given. She was instructed to let her family members and other exposures who are experiencing similar symptoms know that they likely also have the same diagnosis and should stay at home and follow conservative therapy as well. Lab Data Lab results reviewed: Yes I reviewed the patient's lab results Labs: Lab Results 05/22/25 Range/Units 21:13 Influenza Type A Ag Positive A Influenza Type B Ag Negative SARS-CoV-2 Ag (CV2AG) Negative (NEGATIVE) Discharge Plan Discharge Chief Complaint: Upper Respiratory Infection Clinical Impression: Influenza A Patient Disposition: Home, Self-Care Time of Disposition Decision: 21:45 Prescriptions / Home Meds: No Action aripiprazole 10 mg tablet 10 mg PO BEDTIME buspirone 15 mg tablet 15 mg PO DAILY hydroxyzine pamoate 25 mg capsule 25 mg PO Q8H PRN (Reason: anxiety) lamotrigine 100 mg tablet 100 mg PO DAILY lisdexamfetamine 50 mg capsule 50 mg PO DAILY valacyclovir 1 gram tablet 1,000 mg PO DAILY Print Language: Wolof Instructions: Influenza (ED) Referrals: Tom Garcia NP [Primary Care Provider] - 1 week
== END 2025-05-22 21:57 | disposition home or self-care (01) ==
PROVIDERS: Emergency Provider Emergency Medicine; PCP Nurse Practitioner Primary Care
DX: J10.1 Influenza due to other identified influenza virus with other respiratory manifestations (principal); R09.81 Nasal congestion; R05.9 Cough, unspecified; R11.0 Nausea; R50.9 Fever, unspecified
CPT/HCPCS: 87804; 87811; 99284; Q0162